=== PATIENT | male | born 1950 | race Caucasian/White ===

== ENCOUNTER → 2017-07-20 | Day surgery (SDC) | payer BC, MEDICARE ==
[2017-07-12 14:07] VITALS: BMI 36.9
[~2017-07-20] MED LIST: ADENOSINE 90 MG in SODIUM CHLORIDE 0.9% 60 ML IVP ONE; ALPRAZolam 0.25 MG TAB PO PRN; ALPRAZolam 0.5 MG TAB PO PRN; ASPIRIN 325 MG TAB PO STA; ATORVASTATIN 80 MG TAB PO STA; BIVALIRUDIN 250 MG in SODIUM CHLORIDE 0.9% 35 ML IV ONE; BIVALIRUDIN BOLUS 250 MG/50 ML IV ONE; IOHEXOL 350 MG/ML 125ML BOTTLE INJ ONE; LIDOCAINE 2% INJ 20 MG/ML SQ ONE; MIDAZOLAM 2 MG/2 ML VIAL IVP ONE; NITROGLYCERIN 1000MCG/10ML SYRINGE INTRACORON ONE; NITROGLYCERIN SL TABS 0.4 MG TAB SUBLINGUAL PRN; RX INFO: IV CONTRAST WAS GIVEN 1 EACH MISC MISCELLANE PRN; SODIUM CHLORIDE 0.9% 1,000 ML IV SCH; SODIUM CHLORIDE 0.9% 1,000 ML in EMPTY BAG 1 BAG IV ONE
[2017-07-20 07:11] VITALS: RESP 18
[2017-07-20 07:32] LABS: Anion Gap 10 mmol/L; Blood Urea Nitrogen 20 mg/dL (9-20); Calcium 9.6 mg/dL (8.4-10.2); Carbon Dioxide 26 mmol/L (22-30); Chloride 106 mmol/L (98-107); Glucose 112 mg/dL (74-99); Potassium 4.3 mmol/L (3.5-5.1); Sodium 142 mmol/L (137-145)
[2017-07-20 07:49] LABS: Basophils # (A) 0.1 k/uL (0-0.2); Basophils % (A) 1 %; Eosinophils # (A) 0.6 k/uL (0-0.7); Eosinophils % (A) 8 %; HCT 41.9 % (39.0-53.0); HGB 13.9 gm/dL (13.0-17.5); Lymphocytes % (A) 27 %; MCH 31.4 pg (25.0-35.0); MCHC 33.1 g/dL (31.0-37.0); Mean Platelet Volume 7.3; Monocytes # (A) 0.6 k/uL (0-1.0); Monocytes % (A) 8 %; Neutrophils # (A) 4.1 k/uL (1.3-7.7); Neutrophils % (A) 54 %; Platelet Count 242 k/uL (150-450); RBC 4.41 m/uL (4.30-5.90); RDW 14.4 % (11.5-15.5); WBC 7.5 k/uL (3.8-10.6)
[2017-07-20 07:58] LABS: Glucose,Whole Blood 110 mg/dL (75-99)
[2017-07-20] MEDS: VERAPAMIL SYRINGE (5 MG/10 ML) INTRAARTER ONE ×2 (08:00→08:33)
--- NOTE | 2017-07-20 09:21 | CC ---
CARDIAC CATHETERIZATION REPORT DATE OF SERVICE: 07/20/2017 PERFORMING PHYSICIAN: Karsten Brian MD, combat control. PROCEDURE PERFORMED: 1. Selective right and left coronary angiogram. 2. Left heart catheterization. 3. Fractional flow reserve of the RCA. INDICATION: This is a pleasant 67-year-old gentleman who underwent recently successful stenting of the LAD in the setting of acute anterior ST-elevation myocardial infarction and was found to have severe disease involving the RCA. He was brought today to undergo stenting of the RCA. APPROACH: Right radial artery. COMPLICATION: None. LEVEL OF SEDATION: Moderate with sedation length of 46 minutes. PROCEDURE DESCRIPTION: After obtaining an informed consent, the patient was brought to cardiac cath lab radiology technician. The right radial artery was cannulated using micropuncture technique, the micropuncture wire passed easily then I placed a 6-English sheath in the right radial artery. After that I gave the patient 2 mg of verapamil IA. Subsequently anticoagulation was initiated using Angiomax. Then I did selective right coronary angiogram using JR4 guiding catheter. After that, we did an FFR of the RCA. Please see a separate paragraph for that. Then I did selective left coronary angiogram using JL3.5 catheter. Then I did left heart catheterization and that was performed using the JR4 catheter, which flipped into the LV then I did pullback. The procedure was completed without any complication. SELECTIVE CORONARY ANGIOGRAM: 1. The RCA is a large caliber vessel and it is a dominant vessel. The proximal RCA is stented with intermediate in-stent restenosis. The FFR came in to be 0.88. The mid RCA appears to be angiographically normal. The RCA distally is angiographically normal and bifurcates into PDA and PLV branches. 2. The left main is angiographically normal. It bifurcates into the left circumflex and left anterior descending artery. 3. The left circumflex is a large caliber vessel. It is a nondominant vessel. The proximal circ is angiographically normal. The mid circ is normal and gives rise into a large OM branch, which bifurcates into 2 small branches. They are angiographically normal. The circ continued after that as a medium caliber vessel in the AV groove. 4. The left anterior descending artery; the proximal LAD is stented and the stent is patent. The mid LAD is normal and the LAD distally is normal as well. The LAD gives rise into multiple small diagonal branches. HEMODYNAMICS: The left ventricular end-diastolic pressure was 8 mmHg. FFR OF THE RCA: Anticoagulation was initiated using Angiomax. Subsequently I did after zeroing the Doppler wire and equalizing between the Doppler wire and guiding catheter which was JR4 guiding catheter, we did an FFR per IV adenosine infusion and the FFR came in to be 0.88. The procedure was completed without any complication. CONCLUSION: 1. Intermediate in-stent restenosis of the proximal to mid right coronary artery with an FFR of 0.88. 2. Patent stent in the proximal LAD. Postprocedure management is maximize medical treatment and follow up with the patient. MMODL / IJN: [id number] /
--- NOTE | 2017-07-20 09:41 | LTR ---
July 20, 2017 Re: Alexsander Zavala Dear Reynaldo: Mr. Alexsander Zavala underwent a heart catheterization that revealed intermediate disease involving the RCA which is not quite severe enough to be stented. The LAD stent was wide open. Maximized medical treatment is recommended at this point of time and I want to thank you for allowing me to participate in his care. Sincerely, MD DAIJA Knowles / ANNIKA: [id number] /
[2017-07-20 14:11] VITALS: BP 151/72; PULSE 62; TEMP 98.2
== END ==
LOC: CATHCVL 06:31
PROVIDERS: ATTEND Internal Medicine Interventional Cardiology
DX: I25.110 Atherosclerotic heart disease of native coronary artery with unstable angina pectoris (principal); T82.855A Stenosis of coronary artery stent, initial encounter; I10 Essential (primary) hypertension; Z87.891 Personal history of nicotine dependence; E78.5 Hyperlipidemia, unspecified; Z95.5 Presence of coronary angioplasty implant and graft; E66.9 Obesity, unspecified; Z68.36 Body mass index [BMI] 36.0-36.9, adult; Z79.02 Long term (current) use of antithrombotics/antiplatelets; Z79.82 Long term (current) use of aspirin; Z79.899 Other long term (current) drug therapy
CPT/HCPCS: 93571; 93458; 80048; 85025; C1887; C1753; C1894; J2001; J2250; J0583; J0153; Q9967

== ENCOUNTER → 2017-10-18 | Outpatient (CLI) | payer MEDICARE, BC ==
--- NOTE | 2017-10-18 13:29 | MR ---
EXAMINATION TYPE: MR lumbar spine wo con DATE OF EXAM: 10/18/2017 1:05 PM COMPARISON: 07/08/2015 HISTORY: Low back pain / Spinal stenosis. Previous surgical intervention. Multiplanar, MultiSpin echo imaging of the lumbar spine was performed. Given history of prior surgica l intervention and lack of contrast examination is limited. L1-L2: Normal disc appearance without desiccation. No herniation, protrusion or disc bulging. No ca nal stenosis is present. Foramina are patent bilaterally. L2-L3: Severe disc desiccation with vacuum disc noted. Mild posterior disc bulge. No evidence for her niation protrusion or central stenosis. Mild bilateral foraminal encroachment. L3-L4: Severe disc desiccation noted. Posterior disc bulge. Changes of decompressive laminectomy. No evidence for central stenosis at this time. No evidence for recurrent disease. L4-L5: Severe disc desiccation noted with vacuum disc. Posterior disc bulge with partial encapsulatin g spur resulting in disc endplate complex. Left lateral recess stenosis. Decompressive laminectomy ch portia. Severe bilateral foraminal encroachment. Facet joint arthropathy. L5-S1: Severe disc desiccation noted with vacuum disc. Mild posterior disc bulge. No evidence for macario tral stenosis or disc herniation. Severe facet joint arthropathy with bilateral foraminal encroachmen t. Lumbar segments are intact. No paraspinal masses are identified. Conus medullaris has a normal appe arance. IMPRESSION: 1. Severe multilevel degenerative disc disease. 2. Multilevel decompressive laminectomy. Lack of contrast limits evaluation. Degenerative disc bulgin g without evidence for central stenosis. Suspect left lateral recess stenosis at L4-5. See above.
== END ==
LOC: RADMRIMAIN 12:13
PROVIDERS: ATTEND Orthopaedic Surgery Orthopaedic Surgery of the Spine
DX: M51.36 Other intervertebral disc degeneration, lumbar region (principal); M51.26 Other intervertebral disc displacement, lumbar region; M48.061 Spinal stenosis, lumbar region without neurogenic claudication; M46.96 Unspecified inflammatory spondylopathy, lumbar region; Z98.1 Arthrodesis status
CPT/HCPCS: 72148

== ENCOUNTER 2017-11-20 19:55 | Emergency (ER) | payer MEDICARE, BC ==
[2017-11-20 20:01] VITALS: BP 165/76; PULSE 63; RESP 16; TEMP 98.4
--- NOTE | 2017-11-20 22:14 | ED ---
General Adult HPI - General Chief complaint: Eye Problems Stated complaint: eye problem Time Seen by Provider: 11/20/17 21:21 Source: patient, RN notes reviewed Mode of arrival: ambulatory Limitations: no limitations - History of Present Illness Initial comments: 67-year-old male presents to the emergency determine for a chief complaint of "growth" on the lateral corner of the left eye. Patient denies any pain in the eye. Patient denies any foreign body sensations. Patient denies any pain with movement of the eye or swelling around the eye. Patient states he only noticed it because he looks to his right and his noticed the growth. Patient is currently retired. Patient has no other complaints at this time including shortness of breath, chest pain, abdominal pain, nausea or vomiting, headache, or visual changes. - Related Data Home Medications Medication Instructions Recorded Confirmed Aspirin 81 mg PO DAILY 06/05/14 11/20/17 Fenofibrate [Lofibra] 160 mg PO DAILY 06/05/14 11/20/17 Hydrochlorothiazide [Hydrodiuril] 12.5 mg PO DAILY 06/05/14 11/20/17 Metoprolol Tartrate [Lopressor] 25 mg PO BID 06/05/14 11/20/17 [employer]-3 Fatty Acids/Fish Oil [Fish 2 cap PO DAILY 12/07/14 11/20/17 Oil 1,000 mg Softgel] Nitroglycerin Sl Tabs [Nitrostat] 0.4 mg SUBLINGUAL Q5M PRN 08/16/15 11/20/17 Losartan Potassium 100 mg PO DAILY 08/26/15 11/20/17 Atorvastatin [Lipitor] 80 mg PO HS 07/12/17 11/20/17 Clopidogrel [Plavix] 75 mg PO DAILY 07/12/17 11/20/17 Cholecalciferol [Vitamin D3] 1,000 unit PO DAILY 11/20/17 11/20/17 Cyanocobalamin (Vitamin B-12) 1,000 mcg PO DAILY 11/20/17 11/20/17 [Vitamin B-12] Gabapentin [Neurontin] 300 mg PO TID 11/20/17 11/20/17 PARoxetine HCL 20 mg PO DAILY 11/20/17 11/20/17 Allergies Allergy/AdvReac Type Severity Reaction Status Date / Time No Known Allergies Allergy Verified 11/20/17 20:45 Review of Systems ROS Statement: Those systems with pertinent positive or pertinent negative responses have been documented in the HPI. ROS Other: All systems not noted in ROS Statement are negative. 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 Past Anesthesia/Blood Transfusion Reactions: No Reported Reaction Date of Last Stent Placement:: 2016 Past Psychological History: Anxiety Smoking Status: Former smoker Past Alcohol Use History: None Reported Past Drug Use History: None Reported - Past Family History Mother Family Medical History: Coronary Artery Disease (CAD) Additional Family Medical History / Comment(s): stents cabg Father Family Medical History: Coronary Artery Disease (CAD), Vascular Disorder Additional Family Medical History / Comment(s): cabg x2 General Exam Limitations: no limitations General appearance: alert, in no apparent distress Eye exam: Present: PERRL, EOMI, other (There is a 1 cm x 1 cm growth on the lateral aspect of the left eye that appears when patient looks to the right.). Absent: scleral icterus, conjunctival injection, nystagmus, periorbital swelling , periorbital tenderness ENT exam: Present: normal exam, normal oropharynx, mucous membranes moist Neck exam: Present: normal inspection, full ROM. Absent: tenderness, meningismus, lymphadenopathy Respiratory exam: Present: normal lung sounds bilaterally. Absent: respiratory distress, wheezes, rales, rhonchi, stridor Cardiovascular Exam: Present: regular rate, normal rhythm, normal heart sounds. Absent: systolic murmur, diastolic murmur, rubs, gallop, clicks Course Vital Signs 11/20/17 19:57 Temperature 98.4 F Pulse Rate 63 Respiratory 16 Rate Blood Pressure 165/76 O2 Sat by Pulse 94 L Oximetry Medical Decision Making - Medical Decision Making 67-year-old male presents to the emergency department for a chief complaint of growth on the lateral aspect of the left eye. Patient just noticed this today because his side. Patient denies any pain in the eye. Patient denies any pain with movement of the eye. Patient denies any visual changes or foreign body sensation. Visual acuity intact. PERRLA and EOMI. Patient was to the right there is a flesh-colored lesion on the lateral side of the left eyelid appears. Patient was not aware of this lesion before today. Patient was educated that he needs to follow-up with blue prints trimmer in one to 2 days. He is to return to the emergency department if he begins to have pain or visual changes. He was prescribed a ketorolac that may help with the inflammation. Disposition Clinical Impression: Pterygium Disposition: HOME SELF-CARE Condition: Good Instructions: Pterygium (ED) Additional Instructions: Please use eyedrops as directed. Please schedule an appointment with the opthomologist this week. Return to the ED if you have any worsening symptoms or visual changes. Is patient prescribed a controlled substance at d/c from ED?: No Referrals: Daya Boothe III, MD [Primary Care Provider] - 1-2 days Jn Chauhan MD [STAFF PHYSICIAN] - 1-2 days Time of Disposition: 22:12
== END 2017-11-20 22:23 | disposition home or self-care (01) ==
LOC: EC 19:55
DX: H11.002 Unspecified pterygium of left eye (principal); E78.5 Hyperlipidemia, unspecified; I10 Essential (primary) hypertension; I25.2 Old myocardial infarction; M19.90 Unspecified osteoarthritis, unspecified site; F41.9 Anxiety disorder, unspecified; Z87.891 Personal history of nicotine dependence; Z98.890 Other specified postprocedural states; Z79.02 Long term (current) use of antithrombotics/antiplatelets; Z79.82 Long term (current) use of aspirin; Z79.899 Other long term (current) drug therapy
CPT/HCPCS: 99283

== ENCOUNTER → 2018-07-29 | Outpatient (CLI) | payer MEDICARE, BC ==
[2018-07-29 12:21] VITALS: BP 137/75; PULSE 86; RESP 18; TEMP 97.8
--- NOTE | 2018-07-30 05:58 | P.PAINCN ---
History of Present Illness - Reason for Consult Consult date: 07/29/18 - History of Present Illness This is the initial consultation visit for this 68 years old male with a chronic history of severe low back pain with radiation to the lower extremity bilaterally, pain started 5-6 years ago he denies any initiating event, pain intensity increased over time and he had lumbar laminectomy and facetectomy surgery done 2 years ago, he continues to have severe low back pain after the surgery, the pain is constant and increases with any activity and admitted to the lower extremity and left side more than the right side, the intensity of the pain interfering with her quality of life, and preventing him from doing activities of daily livings, he denies any fever or night sweats. 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 degenerative disc disease Last Myocardial Infarction Date:: 2016 History of Any Multi-Drug Resistant Organisms: None Reported Past Surgical History: Cholecystectomy, Heart Catheterization With Stent, Hernia Repair Additional Past Surgical History / Comment(s): BILAT CATARACTS REMOVED, south inguinal hernia repair 1995, umbilical hernia repair x2 pain clinic procedures, 08-26- south l3-4,l4-5 lumbar laminectomy and medial facetectomy. Past Anesthesia/Blood Transfusion Reactions: No Reported Reaction Date of Last Stent Placement:: 2016 Past Psychological History: Anxiety Additional Psychological History / Comment(s): pt lives with his , is independant. 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 Smoking Status: Former smoker Past Alcohol Use History: None Reported Additional Past Alcohol Use History / Comment(s): quit smoking 1984, started smoking age 17, smoked 18 yrs Past Drug Use History: None Reported - Past Family History Mother Family Medical History: Coronary Artery Disease (CAD) Additional Family Medical History / Comment(s): stents cabg Father Family Medical History: Coronary Artery Disease (CAD), Vascular Disorder Additional Family Medical History / Comment(s): cabg x2 Medications and Allergies Home Medications Medication Instructions Recorded Confirmed Type Aspirin EC [Ecotrin Low Dose] 81 mg PO DAILY 07/29/18 07/29/18 History Atorvastatin [Lipitor] 80 mg PO HS 07/29/18 07/29/18 History Clopidogrel [Plavix] 75 mg PO DAILY 07/29/18 07/29/18 History Fenofibrate [Lofibra] 160 mg PO DAILY 07/29/18 07/29/18 History Gabapentin [Neurontin] 300 mg PO TID 07/29/18 07/29/18 History Hydrochlorothiazide 12.5 mg PO DAILY 07/29/18 07/29/18 History Losartan Potassium 100 mg PO DAILY 07/29/18 07/29/18 History Metoprolol Tartrate [Lopressor] 25 mg PO BID 07/29/18 07/29/18 History Naproxen Sodium [Aleve] 220 mg PO BID PRN 07/29/18 07/29/18 History [place]-3 Fatty Acids/Fish Oil [Fish 1 each PO DAILY 07/29/18 07/29/18 History Oil 1,000 mg Softgel] PARoxetine [Paxil] 20 mg PO DAILY 07/29/18 07/29/18 History Allergies Allergy/AdvReac Type Severity Reaction Status Date / Time No Known Allergies Allergy Verified 07/29/18 12:08 Physical Exam Vitals: Vital Signs Temp Pulse Resp BP Pulse Ox 07/29/18 12:16 97.8 F 86 18 137/75 95 Intake and Output 07/29/18 07/29/18 07/30/18 14:59 22:59 06:59 Other: Weight 115.666 kg Social history : not smoker , NO ETOH , NO Illegal drugs use Review of Systems : 1- Constitutional : no chills , no fever , no night sweats , 2- Ears : no ear discharge , no change in hearing 3-Nose, Mouth ,Throat ; no bleeding gums, no sore throat , no epistaxis , 4-Cardiovascular : Denies chest pain, , no orthopnea , no palpitation ,(he had a history of coronary artery disease currently on Plavix) 5-Respiratory : Denies cough , no dyspnea , no hemoptysis 6-Gastrointestinal :, no change in bowel habits , no coffee- ground emesis . 7-Genitourinary : No hematuria , no discharge , no incontinence, 8-Musculoskeletal : No gait dysfunction , report low back pain with radiation to the lower extremities , 9- Neurological : no ataxia , no tremor , no sezure , 10-Psychatric , no suicidal ideation no hallucination 11- Endocrine : no cold intolerence , no polyuria , no polydypsia , 12-Hematologic : no easy bleeding , no easy brusing , 13-Allergic / immunology : no angioedema , no wheezing ,no allergic rhinitis 14-Integumentary : no brttle nails , no change hair / nails , no foot/leg ulcers . Physical Examinations : 1-Constitutional : Cooperative , not in acute distress . 2-HEENT : nech ; supple , no Lymphadenopathy , no Thyromegaly , :eyes , no icterus, no photophobia . ENT : , normal oropharynx , no Thrush 3- Respiratory : Chest clear to auscultations Bilaterally , no wheezing 4- Cardiovascular : regular rate and rhythem , S1 , S2 , no S3 , no S4. 5- Gastrointestinal: abdomen soft no tenderness , no organomegally . 6- Genitourinary : Defferred . 7-Integumentary : No cellulitis , no ulcers , normal skin turgor , no cyanotic . 8- neurologic : Cranial nerve II to XII intact , no focal neurological deffecit 9-psychatric : alert , oriented X 3 , appropriate affect , intact judgment and insight . 10-Lymphatic : no Lymphadenopathy. 11- musculoskeltal: normal gait Lumber spine moter stegnth lower extremities ,thigh and legs 5/5 Right side , 5/5 Left side deep tendon reflexes : normal Knee Jerk , normal ankle Jerk positive lumber facet Loading Test Range of motion of the lumbar spine Flexion 30 degrees, extension 10 degrees strait leg raising test , positive at 30 degree on the left side and is positive at 60 on the right side Fabere test positive RT and positive LT . moderate tenderness over the Sacroiliac joint on the R and L sides Results Comments: MRI of the lumbar spine done [facility] 2017 =L2-3 disc desiccation at L3-4 bulging disc with facet arthropathy L4-L5 bulging disc and facet arthropathy, multilevel lumbar laminectomy Assessment and Plan Plan: Assessment and plan= chronic severe low back pain secondary to failed back surgery syndrome and lumbar area, lumbar spondylosis and lumbar facet arthropathy, patient will be good candidate to her, and epidural steroid injections with lysis of epidural adhesions under fluoroscopy guidance. Patient should continue to use his current medication Neurontin 300 mg 3 times a day, he denies any side effect of the medication, he will continue to get prescription from his primary care. Before we can do the procedure, patient had to hold his Plavix for 1 week before the procedure Time with Patient: Greater than 30 PQRS Measure Charge Sheet Measure #130: Documentation of Current Meds in Medical Chart: Patient's medications documented in chart Measure #226: Tobacco Use: Screen & Cessation Intervention: Pt not a tobacco user Measure #111: Pneumonia Vaccination: Pneumococcal vaccine administered or previously received Measure #47: Advance Care Plan: Advance care planning discussed & documented, pt chose/unable to give Measure #412: Opioid Treatment Agreement: No documentation of signed opioid treatment agreement Measure #408: Opioid Therapy Follow-up Evaluation: Patient had NO f/u eval minimum every 3 months during opioid therapy Measure #317: Preventitive Care & Scrn High Bld Press & F/U: Normal blood pressure, f/u not required Measure #128: Body Mass Index (BMI) Screening & Follow-up: BMI documented ABOVE normal parameters - f/u documented Measure #131: Pain Assessment & Follow-up: Pain positive & plan documented, Follow-up scheduled Measure #431: Unhealthy Alcohol Use Preventative Care & Scrn: Patient not identified as an unhealthy alcohol user PQRS Narrative: Smoking Status Former smoker Do You Want the Pneumonia Vaccine Up to Date Vaccine AT THIS TIME? Blood Pressure 137/75 Pain Intensity [Lower Back] 6 Scale Used Numeric (1 - 10) Hx Alcohol Use ([facility]) No Home Medications: Ambulatory Orders Aspirin EC [Ecotrin Low Dose] 81 mg PO DAILY 07/29/18 Atorvastatin [Lipitor] 80 mg PO HS 07/29/18 Clopidogrel [Plavix] 75 mg PO DAILY 07/29/18 Fenofibrate [Lofibra] 160 mg PO DAILY 07/29/18 Gabapentin [Neurontin] 300 mg PO TID 07/29/18 Hydrochlorothiazide 12.5 mg PO DAILY 07/29/18 Losartan Potassium 100 mg PO DAILY 07/29/18 Metoprolol Tartrate [Lopressor] 25 mg PO BID 07/29/18 Naproxen Sodium [Aleve] 220 mg PO BID PRN 07/29/18 [place]-3 Fatty Acids/Fish Oil [Fish Oil 1,000 mg Softgel] 1 each PO DAILY PARoxetine [Paxil] 20 mg PO DAILY 07/29/18
== END ==
LOC: PNWHC3 11:44
PROVIDERS: ATTEND Specialist
DX: G89.29 Other chronic pain (principal); M96.1 Postlaminectomy syndrome, not elsewhere classified; M47.816 Spondylosis without myelopathy or radiculopathy, lumbar region; M46.96 Unspecified inflammatory spondylopathy, lumbar region; E78.5 Hyperlipidemia, unspecified; I10 Essential (primary) hypertension; I25.10 Atherosclerotic heart disease of native coronary artery without angina pectoris; M19.90 Unspecified osteoarthritis, unspecified site; I25.2 Old myocardial infarction; Z79.899 Other long term (current) drug therapy; Z87.891 Personal history of nicotine dependence; Z79.82 Long term (current) use of aspirin; Z79.02 Long term (current) use of antithrombotics/antiplatelets; Z79.1 Long term (current) use of non-steroidal anti-inflammatories (NSAID)
CPT/HCPCS: 99201

== ENCOUNTER 2018-08-06 08:31 | Day surgery (SDC) | payer MEDICARE, BC ==
[~2018-08-06 08:31] MED LIST changes: -ADENOSINE 90 MG in SODIUM CHLORIDE 0.9% 60 ML IVP ONE; -ALPRAZolam 0.25 MG TAB PO PRN; -ALPRAZolam 0.5 MG TAB PO PRN; -ASPIRIN 325 MG TAB PO STA; -ATORVASTATIN 80 MG TAB PO STA; -BIVALIRUDIN 250 MG in SODIUM CHLORIDE 0.9% 35 ML IV ONE; -BIVALIRUDIN BOLUS 250 MG/50 ML IV ONE; -IOHEXOL 350 MG/ML 125ML BOTTLE INJ ONE; -LIDOCAINE 2% INJ 20 MG/ML SQ ONE; -MIDAZOLAM 2 MG/2 ML VIAL IVP ONE; -NITROGLYCERIN 1000MCG/10ML SYRINGE INTRACORON ONE; -NITROGLYCERIN SL TABS 0.4 MG TAB SUBLINGUAL PRN; -RX INFO: IV CONTRAST WAS GIVEN 1 EACH MISC MISCELLANE PRN; -SODIUM CHLORIDE 0.9% 1,000 ML IV SCH; -SODIUM CHLORIDE 0.9% 1,000 ML in EMPTY BAG 1 BAG IV ONE; +SODIUM CHLORIDE 0.9% 500 ML 500 ML IV SCH
[2018-08-06] MEDS ORDERED: LACTATED RINGERS 1,000 ML IV ONE (08:49)
[2018-08-06 08:50] VITALS: RESP 16; TEMP 97
[2018-08-06] MEDS ORDERED: LIDOCAINE 1% 20 ML VIAL (10MG/ML) FOR IV START INTRADERMA ONE (08:50)
--- NOTE | 2018-08-06 09:42 | P.PCN ---
Date of Procedure: 08/06/18 Procedure(s) Performed: PREOP DIAGNOSIS: 1- Lumbar postlaminectomy syndrome. POSTOP DIAGNOSIS:1- Lumbar postlaminectomy syndrome. PROCEDURE: 1-Caudal epidural steroid injection with epidurolysis and epidurogram under fluoroscopic guidance. 2-caudal epidurogram. ANESTHESIA: Local with 1% lidocaine 3 ml ,and moderate sedation, with Versed 2 mg and fentanyl 100 g. EBL: Minimal. PROCEDURE INDICATION: The patient with post-laminectomy syndrome with low back pain and radiculopathy radiating down in both legs, here for a caudal epidural steroid injection with epidurolysis. PROCEDURE DESCRIPTION: The patient was seen and identified in the preoperative area. Risks, benefits, complications, and alternatives were discussed with the patient. The patient agreed to proceed with the procedure and signed the consent. IV was started, and vital signs were stable. Patient was taken to the OR and time out was completed. The patient was placed in the prone position on procedure table and a pillow was placed under the abdomen to reduce lumbar lordosis. The lumbosacral area was prepped and draped in the usual sterile fashion. Vital signs were closely monitored during the procedure. lateral view and the anterior-posterior plates of the sacrum were identified with infiltration of the area overlying the sacral hiatus with 1% lidocaine .A 17 gauge RK epidural needle was used to advance through the sacral hiatus into the caudal epidural space. Omnipaque 180 dye. 2cc was injected and the position of the needle was verified to be in the midline. A Racz catheter was introduced into the epidural space and was advanced towards the L5-S1 interspace under direct fluoroscopic guidance. Multiple passes were made with the catheter for lysis of epidural adhesions. Kenalog 80 mg with 3ml of preservative free Lidocaine 1% and 5 ml of preservative free normal saline was injected slowly. Additional spread was seen to L4 under fluoroscopy. The needle and the catheter were withdrawn intact. EPIDUROGRAM: Omnipaque 180 mg dye 2 ml was injected with spread of the dye into the caudal epidural space and with spread cutoff at L5 prior to epidurolysis. Post epidurolysis dye 2 ml was injected and spread was seen to L3- 4.There was further spread of the solution together with the dye above the L3 COMPLICATIONS: None. DISPOSITION / PLANS: The patient was placed in a supine position and transferred to the recovery area in a stable condition for observation and was discharged from the recovery room after meeting discharge criteria. Home discharge instructions given to the patient by the staff. The patient was reexamined prior to discharge. The patient will schedule a follow up in the clinic in 2-4 weeks.
[2018-08-06] MEDS ORDERED: IV FLUID CONTINUATION 450 ML IV ONE (09:52)
--- NOTE | 2018-08-06 10:02 | FL ---
Fluoroscopy History: Caudal Inj 4sec fluoro time,3 images scanned
[2018-08-06 10:36] VITALS: BP 109/75; PULSE 84
== END 2018-08-06 10:55 | disposition home or self-care (01) ==
LOC: ORPAIN 08:31
PROVIDERS: ATTEND Specialist
DX: G89.29 Other chronic pain (principal); M96.1 Postlaminectomy syndrome, not elsewhere classified; G96.12 Meningeal adhesions (cerebral) (spinal); M47.26 Other spondylosis with radiculopathy, lumbar region; M51.16 Intervertebral disc disorders with radiculopathy, lumbar region; M48.00 Spinal stenosis, site unspecified; I25.10 Atherosclerotic heart disease of native coronary artery without angina pectoris; E78.5 Hyperlipidemia, unspecified; I10 Essential (primary) hypertension; M19.90 Unspecified osteoarthritis, unspecified site; F41.9 Anxiety disorder, unspecified; I25.2 Old myocardial infarction; Z95.5 Presence of coronary angioplasty implant and graft; Z90.49 Acquired absence of other specified parts of digestive tract; Z79.02 Long term (current) use of antithrombotics/antiplatelets; Z79.82 Long term (current) use of aspirin; Z79.899 Other long term (current) drug therapy; Z87.891 Personal history of nicotine dependence
CPT/HCPCS: 62264; J2250; J1030; J3010; Q9966; 62323; 99152

== ENCOUNTER 2018-11-06 09:22 | Day surgery (SDC) | payer MEDICARE, BC ==
[2018-11-04 14:53] VITALS: BMI 38.4
[~2018-11-06 09:22] MED LIST changes: +LACTATED RINGERS 1,000 ML IV SCH; -SODIUM CHLORIDE 0.9% 500 ML 500 ML IV SCH
[2018-11-06] MEDS ORDERED: LIDOCAINE 1% 20 ML VIAL (10MG/ML) FOR IV START INTRADERMA ONE (09:42)
[2018-11-06 09:53] VITALS: RESP 16; TEMP 97.8
--- NOTE | 2018-11-06 10:12 | P.PCN ---
Date of Procedure: 11/06/18 Procedure(s) Performed: PREOP DIAGNOSIS: 1- Lumbar postlaminectomy syndrome. POSTOP DIAGNOSIS:1- Lumbar postlaminectomy syndrome. PROCEDURE: 1-Caudal epidural steroid injection with epidurolysis and epidurogram under fluoroscopic guidance. ( #2nd ) 2-caudal epidurogram. ANESTHESIA: Local with 1% lidocaine 3 ml ,and moderate sedation, with Versed 2 mg and fentanyl 100 g. EBL: Minimal. PROCEDURE INDICATION: The patient with post-laminectomy syndrome with low back pain and radiculopathy radiating down in both legs, here for a caudal epidural steroid injection with epidurolysis. PROCEDURE DESCRIPTION: The patient was seen and identified in the preoperative area. Risks, benefits, complications, and alternatives were discussed with the patient. The patient agreed to proceed with the procedure and signed the consent. IV was started, and vital signs were stable. Patient was taken to the OR and time out was completed. The patient was placed in the prone position on procedure table and a pillow was placed under the abdomen to reduce lumbar lordosis. The lumbosacral area was prepped and draped in the usual sterile fashion. Vital signs were closely monitored during the procedure. lateral view and the anterior-posterior plates of the sacrum were identified with infiltration of the area overlying the sacral hiatus with 1% lidocaine .A 17 gauge RK epidural needle was used to advance through the sacral hiatus into the caudal epidural space. Omnipaque 180 dye. 2cc was injected and the position of the needle was verified to be in the midline. A Racz catheter was introduced into the epidural space and was advanced towards the L5-S1 interspace under direct fluoroscopic guidance. Multiple passes were made with the catheter for lysis of epidural adhesions. Kenalog 80 mg with 3ml of preservative free Lidocaine 1% and 5 ml of preservative free normal saline was injected slowly. Additional spread was seen to L4 under fluoroscopy. The needle and the catheter were withdrawn intact. EPIDUROGRAM: Omnipaque 180 mg dye 2 ml was injected with spread of the dye into the caudal epidural space and with spread cutoff at L5 prior to epidurolysis. Post epidurolysis dye 2 ml was injected and spread was seen to L3-4.There was further spread of the solution together with the dye above the L3 COMPLICATIONS: None. DISPOSITION / PLANS: The patient was placed in a supine position and transferred to the recovery area in a stable condition for observation and was discharged from the recovery room after meeting discharge criteria. Home discharge instructions given to the patient by the staff. The patient was reexamined prior to discharge. The patient will schedule a follow up in the clinic in 2-4 weeks.
[2018-11-06] MEDS ORDERED: IV FLUID CONTINUATION 1,000 ML IV ONE ×2 (10:20)
[2018-11-06 10:38] VITALS: BP 107/58; PULSE 63
--- NOTE | 2018-11-06 12:50 | FL ---
EXAMINATION TYPE: FL guided pain mgmt statistic DATE OF EXAM: 11/06/2018 HISTORY: Pain caudal epidural, 7 sec fluoro, 3 images scanned
== END 2018-11-06 11:00 | disposition home or self-care (01) ==
LOC: ORPAIN 09:22
PROVIDERS: ATTEND Specialist
DX: M96.1 Postlaminectomy syndrome, not elsewhere classified (principal); I25.10 Atherosclerotic heart disease of native coronary artery without angina pectoris; I10 Essential (primary) hypertension; E78.5 Hyperlipidemia, unspecified; E66.9 Obesity, unspecified; Z68.38 Body mass index [BMI] 38.0-38.9, adult; Z79.02 Long term (current) use of antithrombotics/antiplatelets
CPT/HCPCS: 62264; J2250; J1030; J3010; Q9966; 62323; 99152

== ENCOUNTER → 2018-11-27 | Outpatient (CLI) | payer MEDICARE, BC ==
[2018-11-27 12:39] VITALS: BP 133/66; PULSE 94; RESP 20
--- NOTE | 2018-11-27 13:20 | P.PAINPG ---
Subjective Progress Note Date: 11/27/18 This is a follow-up visit for this 68 years old male with a chronic history of severe low back pain with radiation to the lower extremity, diagnosed with postlaminectomy pain syndrome, recently we have done caudal epidural steroid injection with lysis of epidural adhesions 2, patient reported that he had only a few days of pain relief after each injection, he continued to have severe low back pain with radiation mainly to the left lower extremity associated with numbness and tingling sensation, he denies any fever or night sweats he denies any change in the bowel movement or urination, the pain is constant and increases with any activity Objective - Vital Signs Vital signs: Vital Signs Temp Pulse 94 11/27/18 12:33 Resp 20 11/27/18 12:33 BP 133/66 11/27/18 12:33 Pulse Ox Intake & Output 11/26/18 11/27/18 11/27/18 18:59 06:59 18:59 Weight 117.934 kg - Exam Physical Examinations : -Constitutiona : Cooperative , not in acute distress . -HEENT : nech ; supple , no Lymphadenopathy , normal thyroid size . eyes : no ptosis , no icterus, no photophobia . ENT : normal of hearing , normal oropharynx , no Thrush . - Respiratory : Chest clear to auscultations Bilaterally , no wheezing , no Rhonchi . - Cardiovascula : regular rate and rhythem , S1 , S2 , no S3 , no S4. - Gastrointestina : abdomen soft no tenderness , bowel sounds , no organomegally . - Genitourinary : Defferred . - neurologic : Cranial nerve II to XII intact , no focal neurological deffecit . -psychatric : alert , oriented X 3 , appropriate affect , intact judgment and insight . -Lymphatic : no Lymphadenopathy . - musculoskeltal : Lumber spine moter stegnth lower extremities ,thigh and legs 5/5 Right side , 5/5 Left side deep tendon reflexes : normal Knee Jerk , normal ankle Jerk positive lumber facet Loading Test Range of motion of the lumbar spine Flexion 30 degrees, extension 10 degrees strait leg raising test , positive at 30 degree on the left side, negative on the right side Fabere test positive LT , negative on the right side Assessment and Plan Plan: Assessment and plan=1-lumbar radiculopathy. 2-postlaminectomy pain syndrome lumbar area. Patient continued to have severe low back pain with radiation to the left lower extremity after caudal epidural steroid injection with lysis of epidural adhesions, patient will be referred to Dr. Grant , neurosurgery for evaluation Time with Patient: Less than 30 PQRS Measure Charge Sheet Measure #130: Documentation of Current Meds in Medical Chart: Patient's medications documented in chart Measure #226: Tobacco Use: Screen & Cessation Intervention: Pt not a tobacco user Measure #111: Pneumonia Vaccination: Pneumococcal vaccine administered or previously received Measure #47: Advance Care Plan: Advance care planning discussed & documented, pt chose/unable to give Measure #412: Opioid Treatment Agreement: No documentation of signed opioid treatment agreement Measure #408: Opioid Therapy Follow-up Evaluation: Patient had NO f/u eval minimum every 3 months during opioid therapy Measure #317: Preventitive Care & Scrn High Bld Press & F/U: Normal blood pressure, f/u not required Measure #128: Body Mass Index (BMI) Screening & Follow-up: BMI documented ABOVE normal parameters - f/u documented Measure #131: Pain Assessment & Follow-up: Pain positive & plan documented, Follow-up PRN Measure #431: Unhealthy Alcohol Use Preventative Care & Scrn: Patient not identified as an unhealthy alcohol user PQRS Narrative: Smoking Status Former smoker Do You Want the Pneumonia Vaccine Up to Date Vaccine AT THIS TIME? Blood Pressure 133/66 Pain Intensity [Left Hip] 7 Scale Used Numeric (1 - 10) Hx Alcohol Use (MH) No Home Medications: Ambulatory Orders Aspirin EC [Ecotrin Low Dose] 81 mg PO DAILY 07/29/18 Atorvastatin [Lipitor] 80 mg PO HS 07/29/18 Clopidogrel [Plavix] 75 mg PO QAM 07/29/18 Fenofibrate [Lofibra] 160 mg PO QAM 07/29/18 Gabapentin [Neurontin] 300 mg PO TID 07/29/18 Hydrochlorothiazide 12.5 mg PO QAM 07/29/18 Losartan Potassium 100 mg PO QAM 07/29/18 Metoprolol Tartrate [Lopressor] 25 mg PO BID 07/29/18 Naproxen Sodium [Aleve] 220 mg PO BID PRN 07/29/18 [place]-3 Fatty Acids/Fish Oil [Fish Oil 1,000 mg Softgel] 1 each PO DAILY 07/29/18 PARoxetine [Paxil] 20 mg PO QAM 07/29/18 Cholecalciferol [Vitamin D3] 1 tab PO DAILY 08/02/18 Cyanocobalamin (Vitamin B-12) [Vitamin B-12] 1 tab PO DAILY 08/02/18 Nitroglycerin 0.4 mg SL DIRECTED 08/02/18 Controlled Substance Measures - Controlled Substance Measures Is patient prescribed a controlled substance at discharge?: No
== END | disposition home or self-care (01) ==
LOC: PNWHC3 11:42
PROVIDERS: ATTEND Specialist
DX: G89.29 Other chronic pain (principal); M54.16 Radiculopathy, lumbar region; M96.1 Postlaminectomy syndrome, not elsewhere classified; Z87.891 Personal history of nicotine dependence
CPT/HCPCS: 99211

== ENCOUNTER → 2018-12-12 | Outpatient (CLI) | payer MEDICARE, BC ==
--- NOTE | 2018-12-12 19:54 | MR ---
EXAMINATION TYPE: MR lumbar spine wo/w con DATE OF EXAM: 12/12/2018 COMPARISON: Prior lumbar spine 10/18/2017 HISTORY: DD / Low back pain / Hip pain TECHNIQUE: Multiplanar, multisequence images of the lumbar spine were acquired utilizing 12 mL intravenous Gadav ist gadolinium contrast. L1-L2: There is some facet arthropathy change. No significant disc herniation or foraminal encroachme nt, no central stenosis. L2-L3: Facet arthropathy is present encroaching on the lateral recesses, circumferential extension of endplate disc complex encroaches somewhat on the left neural foramen. No significant central stenosi s. Mild anterior mass effect on the thecal sac is noted. Endplate disc complex. L3-L4: Circumferential extension of endplate disc complex causes bilateral foraminal encroachment. Po sterior broad-based disc bulge causes mild anterior mass effect on the thecal sac, no significant macario tral stenosis. There is facet arthropathy with hypertrophy ligamentum flavum, some mild mass effect p resent on the lateral aspect of the thecal sac. There is encroachment on the lateral recesses. L4-L5: Extensive facet arthropathy changes are present with encroachment on the lateral recesses, the re is no significant central stenosis. Circumferential extension of endplate disc complex causes bila teral foraminal encroachment. L5-S1: Significant facet joint arthropathy is noted with encroachment on the lateral recesses, minima l posterior disc bulge contacts anterior thecal sac as on prior, no spinal stenosis. Circumferential extension of endplate disc complex causes bilateral foraminal encroachment. Lumbar segments are intact, suspect a transitional vertebral body, numbering system used as a same as prior exam. No paraspinal masses are identified. Conus medullaris has a normal appearance. Minimal retrolisthesis grade 1 L3-4, L2-3 as on prior. Multilevel spondylosis with endplate discogenic marro w signal change again seen, vacuum phenomenon present at the intervertebral disc spaces of L2-3, L3-4 , L4-5 and L5-S1, there is loss of disc height and signal. IMPRESSION: Extensive facet arthropathy, degenerative disc disease similar to prior exam. Postop changes. Multile britany foraminal encroachment.
== END | disposition home or self-care (01) ==
LOC: RADMRIMAIN 16:34
PROVIDERS: ATTEND Family Medicine
DX: M51.37 Other intervertebral disc degeneration, lumbosacral region (principal); M47.897 Other spondylosis, lumbosacral region; M54.2 Cervicalgia
CPT/HCPCS: 72158; A9585

== ENCOUNTER → 2019-04-10 | Outpatient (CLI) | payer MEDICARE, BC | END | disposition home or self-care (01) | LOC: LABWHC1 14:23 | PROVIDERS: ATTEND Orthopaedic Surgery | DX: Z01.812 Encounter for preprocedural laboratory examination (principal); M16.12 Unilateral primary osteoarthritis, left hip | CPT/HCPCS: 87070 ==

== ENCOUNTER 2019-04-21 10:24 | Inpatient (IN) | payer MEDICARE, BC ==
[2019-04-18 08:58] VITALS: BMI 36.9
--- NOTE | 2019-04-20 17:42 | HP ---
HISTORY AND PHYSICAL REASON FOR ADMISSION: Surgery is scheduled for 04/21/2019. HISTORY OF PRESENT ILLNESS: Berhane Zavala is a 68-year-old patient seen with symptomatic left hip osteoarthritis. We discussed treatment options. He elected to proceed with direct anterior left total hip arthroplasty. Consent regarding the procedure was obtained. Medical clearance was provided by Dr. Boothe. Cardiac clearance was provided by Dr. Brian. PAST MEDICAL HISTORY: Coronary artery disease, hypertension, hyperlipidemia. PAST SURGICAL HISTORY: Cardiac catheterization, cholecystectomy, lumbar spine surgery. DAILY MEDICATIONS: Aspirin, metoprolol, atorvastatin, paroxetine, hydrochlorothiazide, losartan, Nitrostat. ALLERGIES: None reported. SOCIAL HISTORY: Denies current tobacco use. PHYSICAL EXAMINATION: Evaluation of the left hip, he has limited range of motion with severe pain. Positive hip impingement sign. Straight leg raise is negative. Distal neurovascular exam is intact. RADIOGRAPHS: Of his left hip reveal severe osteoarthritic changes. IMPRESSION: 1. Left hip osteoarthritis. 2. Hypertension. 3. Hyperlipidemia. 4. Cardiovascular disease. PLAN: Direct anterior left total hip arthroplasty. Surgery scheduled for 04/21/2019. MMODL / IJN: [id number] /
[~2019-04-21 10:24] MED LIST changes: +ACETAMINOPHEN TAB 500 MG TAB PO ONE; +HYDROmorphone 0.5 MG/0.5 ML SYRINGE IVP PRN; +LIDOCAINE 1% 20 ML VIAL (10MG/ML) FOR IV START INTRADERMA PRN; +MELOXICAM 7.5 MG TAB PO ONE; +ONDANSETRON 4 MG/2 ML VIAL IVP ONE; +ROPIVACAINE 246.25 MG, EPINEPHrine 0.5 MG, KETOROLAC 30 MG, cloNIDine HCL/PF 80 MCG, WA... MISCELLANE ONE; +TRANEXAMIC ACID 1,000 MG in SODIUM CHLORIDE 0.9% 100 ML IVPB ONE
[2019-04-21] MEDS ORDERED: DEXAMETHASONE SOD PHOSPHATE 10 MG/ML 1 ML VIAL IV ONE (12:24)
[2019-04-21] MEDS ORDERED: MIDAZOLAM 2 MG/2 ML VIAL ONE (12:59)
[2019-04-21] MEDS ORDERED: ePHEDrine SULFATE/0.9% NACL/PF 50 MG/5 ML SYRINGE IV ONE (12:59)
[2019-04-21] MEDS ORDERED: TRANEXAMIC ACID 1,000 MG/10 ML VIAL ONE (12:59)
[2019-04-21] MEDS ORDERED: SODIUM CHLORIDE 0.9% 100 ML BAG ONE (12:59)
[2019-04-21] MEDS ORDERED: fentaNYL (PF) 50 MCG/ML 2 ML AMP ONE (12:59)
[2019-04-21] MEDS ORDERED: ceFAZolin 3,000 MG in SODIUM CHLORIDE 0.9% IRRIGATIO 3,000 ML IRRIGATION ONE (13:31)
[2019-04-21] MEDS ORDERED: LACTATED RINGERS 1,000 ML IV ONE (14:32)
[2019-04-21] MEDS ORDERED: HYDROcodone/APAP 5-325MG 1 EACH TAB PO PRN (15:05)
[2019-04-21] MEDS ORDERED: ONDANSETRON 4 MG/2 ML VIAL IVP PRN (15:05)
[2019-04-21] MEDS ORDERED: NALOXONE 0.4 MG/ML 1 ML VIAL IV PRN (15:05)
[2019-04-21] MEDS ORDERED: HYDROmorphone 0.5 MG/0.5 ML SYRINGE IVP PRN ×2 (15:05)
[2019-04-21] MEDS ORDERED: HYDROmorphone 1 MG/ML 1 ML SYRINGE IVP PRN (15:05)
--- NOTE | 2019-04-21 15:05 | P.OP ---
Date of Procedure: 04/21/19 Preoperative Diagnosis: Left hip osteoarthritis Postoperative Diagnosis: Left hip osteoarthritis Procedure(s) Performed: Direct anterior left total hip arthroplasty Implants: 1. Depuy Corail KLA size 10 high offset collared press-fit femoral stem 2. Depuy pinnacle 56 mm multi hole press-fit acetabular shell 3. Depuy pinnacle neutral polyethylene acetabular liner +4 36 mm ID 56 mm OD 4. Biolox delta ceramic femoral head +1.5 36 mm Anesthesia: local, spinal Surgeon: Rickey Ospina Gas Welder #1: Dereje Armas Estimated Blood Loss (ml): 125 Pathology: other (Femoral head) Condition: stable Disposition: PACU Indications for Procedure: 68-year-old patient seen with symptomatic left hip osteoarthritis. After treatment options were discussed, he elected to proceed with total hip arthroplasty. Operative Findings: see description of procedure Description of Procedure: The patient was taken to the operative suite. Patient underwent a spinal anesthetic by the department of anesthesia. Patient was then transferred to the [place] table. Patient was given preoperative IV antibiotics and TXA. Both lower extremities were placed in standard leg spars. The hip was then prepped and draped in the normal sterile orthopedic fashion. A standard anterior incision was made beginning 3 cm lateral and 1 cm distal to the ASIS extending 10 cm. Dissection was then carried down through the subcutaneous soft tissues down to the fascia overlying the tensor fascia sean. An incision was now made through the fascia. Careful dissection was taken down exposing the tensor fascia sean muscle. A Cobra retractor was now placed along the medial femoral neck and a second one along the lateral femoral neck. The venous circumflex vessels were now identified, cauterized and clipped. We identified the anterior hip capsule. An incision was made through the hip capsule along the lateral border. I performed a partial anterior capsulectomy. Retractors were now placed around the femoral neck itself. A femoral neck cut was now made with a sagittal saw. It was completed with an osteotome at the lateral neck area. The femoral head was now removed without difficulty. The extremity was now rotated to 45 of external rotation. It was locked in position. Residual labrum was now debrided out. Serial reaming was performed of the acetabulum while Joni hanna holding an anterior retractor for exposure. Once we reached the appropriate size and a trial was position and fit nicely. The appropriate size was now chosen opened and made available. It was introduced into the acetabulum without difficulty. The C-arm/fluoroscopy was now brought into the operative field. We made sure we had a true AP pelvic view. We now under direct C-arm/fluoroscopy introduced into the acetabular component with appropriate version and inclination. I held the cup in appropriate position well Joni CURRAN used a mallet to seat the acetabular component. I noted the component to be well- seated but unstable. At this point 3 appropriate length 6.5 mm cancellous screws were utilized with good purchase and fixation noted. The C-arm was pulled back. An appropriate liner was introduced and clicked into position. It was felt to be stable. At this point retractors were removed. The extremity was now placed into 120 external rotation with no traction. The leg was now dropped to the ground and adducted. Appropriate retractors were now positioned along the proximal femur. We also placed our femoral look into position. Additional capsular releasing was performed to gain access to the proximal femur. We now used a box osteotome. A canal finder was now utilized. The canal was very tight and the cancellus bone was quite dense. I now passed a ball-tipped guidewire and appropriate reaming was performed. Serial broaching was now performed with the assistance of Joni CURRAN tapping the broaches down with a mallet while held the broach in appropriate rotation and position. This was done until we reached the appropriate size with good overall rotational stability. Appropriate calcar planing was performed. A trial head/neck was placed into position. The hip was now reduced. The C- arm/fluoroscopy was brought back into the operative field. An AP pelvis was obtained to ascertain the positioning of the lesser trochanters 4 determination of leg length. It appeared adequate. The C-arm/fluoroscopy was pulled back. Retractors were repositioned and the hip was dislocated. The leg was again taken down to the ground and adducted. Appropriate retractors were repositioned as well as the femoral hook. All trial components were removed. The femoral implant was opened along with the femoral head. The femoral implant was introduced on the appropriate handle into our pre-broached area. I held the component position well Joni CURRAN used a mallet to seat the femoral component. The femoral component was now noted to be well seated and stable.. The femoral head was introduced with good positioning and fixation noted. Retractors were now removed. The hip was now reduced. There appeared be good positioning of the hip confirmed on intraoperative fluoroscopy. Spot films were obtained to document this. A second gram of TXA was given. The deep and superficial soft tissues were infiltrated with local analgesic. Bipolar cautery had been utilized intermittently through the procedure for hemostasis. The wound was irrigated copiously with pulse lavage mechanical irrigation. The fascia was repaired with Vicryl suture. The subcutaneous soft tissues were repaired in layers with Vicryl suture. The skin was approximated with pernio/Dermabond. Sterile dressings were applied. Patient was then awakened, transferred to a bed and taken to recovery in stable condition. Joni CURRAN assisted with the complex procedure.
--- NOTE | 2019-04-21 15:11 | FL ---
Fluoroscopy INDICATION: Pain FINDINGS: Fluoroscopy time: 26 seconds. Images obtained: One. IMPRESSIONS: 1. Documentation of fluoroscopy.
[2019-04-21] MEDS: ePHEDrine 50 MG/ML 1 ML AMP IVP ONE ×2 (15:21→15:29)
[2019-04-21] MEDS: LACTATED RINGERS 1,000 ML IV SCH (20:13)
[2019-04-21] MEDS: GABAPENTIN 300 MG CAP PO SCH (20:14)
[2019-04-21] MEDS: LORATADINE-PSEUDOEPH 5-120 MG 1 EACH TAB.ER.12H PO SCH (20:14)
[2019-04-21] MEDS: METOPROLOL TARTRATE 25 MG TAB PO SCH (20:15)
[2019-04-21] MEDS ORDERED: ATORVASTATIN 80 MG TAB PO SCH (21:00)
[2019-04-21] MEDS ORDERED: SENNOSIDES-DOCUSATE SODIUM 1 EACH TAB PO SCH (21:00)
[2019-04-22] MEDS: HYDROcodone/APAP 5-325MG 1 EACH TAB PO PRN ×2 (00:12→12:47)
[2019-04-22] MEDS: LACTATED RINGERS 1,000 ML IV SCH (05:26)
[2019-04-22 08:07] VITALS: BP 135/74; PULSE 83; RESP 16; TEMP 97.9
[2019-04-22] MEDS: METOPROLOL TARTRATE 25 MG TAB PO SCH (08:09)
[2019-04-22] MEDS: GABAPENTIN 300 MG CAP PO SCH (08:09)
[2019-04-22] MEDS: LORATADINE-PSEUDOEPH 5-120 MG 1 EACH TAB.ER.12H PO SCH (08:10)
[2019-04-22] MEDS ORDERED: NON FORMULARY DRUG (Omega-3 Fatty Acids/Fish Oil [Fish Oil 1,000 Mg Softgel] 1 EACH) PO SCH (09:00)
[2019-04-22] MEDS ORDERED: FAMOTIDINE 20 MG TAB PO SCH (09:00)
[2019-04-22] MEDS ORDERED: PARoxetine 20 MG TAB PO SCH (09:00)
[2019-04-22] MEDS ORDERED: FENOFIBRATE 160 MG TAB PO SCH (09:00)
[2019-04-22] MEDS ORDERED: CHOLECALCIFEROL 1,000 UNIT TAB PO SCH (09:00)
[2019-04-22] MEDS ORDERED: HYDROCHLOROTHIAZIDE 12.5 MG CAP PO SCH (09:00)
[2019-04-22] MEDS ORDERED: CYANOCOBALAMIN 500 MCG TAB PO SCH (09:00)
[2019-04-22] MEDS ORDERED: LOSARTAN 50 MG TAB PO SCH (09:00)
[2019-04-22] MEDS ORDERED: CLOPIDOGREL 75 MG TAB PO SCH (09:00)
[2019-04-22] MEDS ORDERED: MELOXICAM 7.5 MG TAB PO SCH (09:00)
[2019-04-22 10:23] LABS: Basophils % (A) 0 %; Eosinophils % (A) 0 %; HCT 33.8 % (39.0-53.0); HGB 11.6 gm/dL (13.0-17.5); Lymphocytes # (A) 0.9 k/uL (1.0-4.8); Lymphocytes % (A) 7 %; MCH 32.4 pg (25.0-35.0); MCHC 34.3 g/dL (31.0-37.0); MCV 94.5 fL (80.0-100.0); Mean Platelet Volume 6.1; Monocytes # (A) 0.7 k/uL (0-1.0); Monocytes % (A) 5 %; Neutrophils # (A) 12.3 k/uL (1.3-7.7); Neutrophils % (A) 87 %; Platelet Count 268 k/uL (150-450); RBC 3.58 m/uL (4.30-5.90); RDW 13.4 % (11.5-15.5); WBC 14.1 k/uL (3.8-10.6)
--- NOTE | 2019-04-22 11:20 | P.PN ---
Subjective Progress Note Date: 04/22/19 Principal diagnosis: Status post right anterior left total hip arthroplasty Patient evaluated bedside, he has multiple family members present. His doing very well at this time, his pain is well-controlled. He denies any chest pain or shortness of breath. Objective - Vital Signs Vital signs: Vital Signs Temp 97.9 F 04/22/19 07:12 Pulse 83 04/22/19 08:00 Resp 16 04/22/19 08:00 BP 135/74 04/22/19 07:12 Pulse Ox 93 L 04/22/19 07:12 Intake & Output 04/21/19 04/22/19 04/22/19 18:59 06:59 18:59 Intake Total 2173 1010 180 Output Total 125 Balance 8 1010 180 Weight 117.027 kg Intake: IV 1950 Intake, IV Titration 960 Amount Lactated Ringers 1,000 ml 960 @ 80 mls/hr IV .[id number] [facility] Rx#:[id number] Oral 222 50 180 Output: Estimated Blood Loss 125 Other: Voiding Method Toilet Toilet # Voids 1 - Exam Left lower extremity: Incision is clean, dry, and intact. The exofin fusion tape is in good condition. There is minimal soft tissue swelling and ecchymosis surrounding the medial and lateral aspects of the incision. Calf is soft, no tenderness with palpation. Plantar flexion, dorsiflexion, EHL, FHL are intact. Sensory exam to light touch throughout the extremity is intact, dorsal pedis pulses 2+.] - Labs CBC & Chem 7: 04/22/19 08:54 Labs: Abnormal Lab Results - Last 24 Hours (Table) 04/22/19 Range/Units 08:54 WBC 14.1 H (3.8-10.6) k/uL RBC 3.58 L (4.30-5.90) m/uL Hgb 11.6 L (13.0-17.5) gm/dL Hct 33.8 L (39.0-53.0) % Neutrophils # 12.3 H (1.3-7.7) k/uL Lymphocytes # 0.9 L (1.0-4.8) k/uL Assessment and Plan Plan: Assessment: Postop day #1 status post direct anterior left total hip arthroplasty Plan: Pain control, plan for discharge on oral medication GI and DVT prophylaxis, will resume anticoagulant after discharge Home physical therapy and nursing Medical recommendations Wound care discussed Discharged home today Time with Patient: Less than 30
--- NOTE | 2019-04-22 11:22 | P.DS ---
Providers Date of admission: 04/21/19 11:13 Expected date of discharge: 04/22/19 Attending physician: Rickey Ospina Primary care physician: Daya Boothe Hospital Course: Date of admission: 04/21/2019 Date of discharge: 04/22/2019 Admission diagnosis: Status post direct anterior left total hip arthroplasty Discharge diagnosis: Same Attending physician: Dr. Ospina Surgical procedures: Direct anterior left total hip arthroplasty Brief history: Patient is a 68-year-old male with a history of progressive primary left hip osteoarthritis. At this point patient has failed conservative treatment measures and has opted to proceed with a elective direct anterior left total hip arthroplasty. Hospital course: Details of patient's surgery can be found in operative report. Patient tolerated the procedure well and was subsequently transported to orthopedic floor. Patient's orthopeidc and medical care was provided daily. Patient had daily laboratory tests performed for evaluation of overall blood counts. Patient had daily physical therapy to include strengthening range of motion as well as education with walker ambulation. Patient was treated with aspirin and Plavix for their postoperative DVT prophylaxis during their inpatient stay. Patient was noted to have a relatively uneventful postoperative course. Patient reported satisfactory pain control with oral pain medications by postoperative day 0. Patient showed satisfactory progress with physical therapy. Patient moved steadily through the program and had no difficulty meeting the goals by postoperative day 1. Given patient's otherwise satisfactory course and having met physical therapy goals, plan is to discharge patient home on postoperative day 1. Discharge condition/disposition: Patient will be discharged home in stable condition. Discharge medications: Instructions are given on resumption of patient's normal daily medications per primary care recommendation, in addition patient will be prescribed [place] 5 mg/325 mg, Colace 100 mg. Discharge instructions: 1. Wound care and infection precautions, keep incision dry and covered while showering, no lotions, creams, moisturizers. No soaking, tubs, pools, hottubs. Do not scrub over the incision. 2. Weight-bear as tolerated with walker / cane until follow-up. 3. Ice and elevate when necessary. Do not exceed 20 minutes per hour with ice pack. 4. Utilize compression sleeve until seen at first follow up appointment. 5. Visiting nursing care. 6. Home physical therapy. 7. Pain meds and anticoagulants per prescription. 8. Pain medication has potential to cause constipation. Increase oral fluid and fiber intake. Contact primary care provider if you have not had a bowel movement within 48 hours after discharge 9. No anti-inflammatory medication until discussed at first post operative visit, this including Motrin, Aleve, Mobic, Diclofenac. 10. Follow up in office at 2 weeks postop with Joni Armas PA-C 11. Follow up with your primary care doctor 7-10 days after discharge. 12. Contact [facility] with any questions, . Procedures: Direct anterior left total hip arthroplasty Patient Condition at Discharge: Good Plan - Discharge Summary Discharge Rx Participant: Yes New Discharge Prescriptions: New Docusate [Colace] 100 mg PO DAILY #30 capsule Hydrocodone/Acetaminophen [[place] 5-325] 1 each PO Q6HR PRN #28 tab PRN Reason: Pain No Action Gabapentin [Neurontin] 300 mg PO TID Clopidogrel [Plavix] 75 mg PO QAM Atorvastatin [Lipitor] 80 mg PO HS Hydrochlorothiazide 12.5 mg PO QAM Fenofibrate [Lofibra] 160 mg PO QAM PARoxetine [Paxil] 20 mg PO QAM Metoprolol Tartrate [Lopressor] 25 mg PO BID Losartan Potassium 100 mg PO QAM Aspirin EC [Ecotrin Low Dose] 81 mg PO DAILY [place]-3 Fatty Acids/Fish Oil [Fish Oil 1,000 mg Softgel] 1 each PO DAILY Nitroglycerin 0.4 mg SL DIRECTED Cyanocobalamin (Vitamin B-12) [Vitamin B-12] 1 tab PO DAILY Cholecalciferol [Vitamin D3] 1 tab PO DAILY Loratadine-Pseudoeph 5-120 mg [Claritin-D 12 Hour] 1 tab PO Q12HR Discharge Medication List Aspirin EC [Ecotrin Low Dose] 81 mg PO DAILY 07/29/18 [History] Atorvastatin [Lipitor] 80 mg PO HS 07/29/18 [History] Clopidogrel [Plavix] 75 mg PO QAM 07/29/18 [History] Fenofibrate [Lofibra] 160 mg PO QAM 07/29/18 [History] Gabapentin [Neurontin] 300 mg PO TID 07/29/18 [History] Hydrochlorothiazide 12.5 mg PO QAM 07/29/18 [History] Losartan Potassium 100 mg PO QAM 07/29/18 [History] Metoprolol Tartrate [Lopressor] 25 mg PO BID 07/29/18 [History] [place]-3 Fatty Acids/Fish Oil [Fish Oil 1,000 mg Softgel] 1 each PO DAILY 07/29/18 [History] PARoxetine [Paxil] 20 mg PO QAM 07/29/18 [History] Cholecalciferol [Vitamin D3] 1 tab PO DAILY 08/02/18 [History] Cyanocobalamin (Vitamin B-12) [Vitamin B-12] 1 tab PO DAILY 08/02/18 [History] Nitroglycerin 0.4 mg SL DIRECTED 08/02/18 [History] Loratadine-Pseudoeph 5-120 mg [Claritin-D 12 Hour] 1 tab PO Q12HR 04/18/19 [History] Docusate [Colace] 100 mg PO DAILY #30 capsule 04/22/19 [Rx] Hydrocodone/Acetaminophen [[place] 5-325] 1 each PO Q6HR PRN #28 tab 04/22/19 [Rx] Follow up Appointment(s)/Referral(s): Daya Boothe III, MD [Primary Care Provider] - 1 Week Dereje Armas PAC [PHYSICIAN TORCH SOLDERER] - 05/07/19 1:50 pm Activity/Diet/Wound Care/Special Instructions: [facility]: #[phone] Orthopedic Discharge Instructions: 1. Wound care and infection precautions, keep incision dry and covered while showering, no lotions, creams, moisturizers. No soaking, pools, hot tubs. Do not scrub over incision. 2. Weight-bear as tolerated with walker / cane until follow-up. 3. Ice and elevate when necessary. Do not exceed 20 minutes per hour with ice pack. 4. Utilize compression sleeve until seen at first follow up appointment. 5. Pain meds and anticoagulants per prescription. 6. Pain medication has potential to cause constipation. Increase oral fluid and fiber intake. Contact primary care provider if you have not had a bowel movement within 48 hours after discharge. 7. No anti-inflammatory medication until discussed at first post operative visit, this including Motrin, Aleve, Mobic, Diclofenac. 8. Follow up in office at 2 weeks postop with Joni Armas PA-C 9. Follow up with your primary care doctor 7-10 days after discharge. 10. Contact [facility] with any questions, . Discharge Disposition: HOME WITH HOME HEALTH SERVICES
== END 2019-04-22 13:21 | disposition home health service (06) | DRG 470 ==
LOC: 2ORMAIN 11:13 → 4SSUR 16:02
PROVIDERS: ADMIT Orthopaedic Surgery; ATTEND Orthopaedic Surgery
PROC: 0SRB04A Replacement of Left Hip Joint with Ceramic on Polyethylene Synthetic Substitute, Uncemented, Open Approach (ICD-10-PCS; principal; 2019-04-21 12:30)
DX: M16.12 Unilateral primary osteoarthritis, left hip (principal); I25.10 Atherosclerotic heart disease of native coronary artery without angina pectoris; I10 Essential (primary) hypertension; N40.0 Benign prostatic hyperplasia without lower urinary tract symptoms; E78.2 Mixed hyperlipidemia; E78.00 Pure hypercholesterolemia, unspecified; F41.1 Generalized anxiety disorder; M51.36 Other intervertebral disc degeneration, lumbar region; E66.01 Morbid (severe) obesity due to excess calories; Z90.49 Acquired absence of other specified parts of digestive tract; Z98.890 Other specified postprocedural states; Z79.02 Long term (current) use of antithrombotics/antiplatelets; Z79.82 Long term (current) use of aspirin; Z79.899 Other long term (current) drug therapy; I25.2 Old myocardial infarction; Z95.5 Presence of coronary angioplasty implant and graft; Z80.0 Family history of malignant neoplasm of digestive organs; Z80.42 Family history of malignant neoplasm of prostate; Z68.38 Body mass index [BMI] 38.0-38.9, adult; Z87.19 Personal history of other diseases of the digestive system; Z98.42 Cataract extraction status, left eye; Z98.41 Cataract extraction status, right eye; Z87.891 Personal history of nicotine dependence; Z82.49 Family history of ischemic heart disease and other diseases of the circulatory system
CPT/HCPCS: 36415; 73501; 85025; 86850; 86900; 86901; 88300

== ENCOUNTER 2019-05-08 14:43 | Day surgery (SDC) | payer MEDICARE, BC ==
[2019-05-07 13:15] VITALS: BMI 37.6
--- NOTE | 2019-05-07 15:10 | HP ---
HISTORY AND PHYSICAL REASON FOR ADMISSION: Date of surgery is 05/08/2019. HISTORY OF PRESENT ILLNESS: Alexsander Zavala is a 69-year-old patient who had undergone left total hip arthroplasty on 04/21/2019. He was seen postoperatively and noted to have some dehiscence proximal to the incision. I recommended revising this. I discussed the procedure, risks, complications, benefits, recovery. He was agreeable. Consent was obtained. PAST MEDICAL HISTORY: Hyperlipidemia, hypertension, cardiovascular disease. PAST SURGICAL HISTORY: Cardiac catheterization, cholecystectomy, colonoscopy, lumbar spine surgery, total hip arthroplasty. DAILY MEDICATIONS: Aspirin, metoprolol, atorvastatin, gabapentin, hydrochlorothiazide, losartan, Nitrostat. SOCIAL HISTORY: He denies tobacco use. PHYSICAL EXAMINATION: There is some dehiscence along the proximal incision site measuring approximately 2 cm. There is no redness. There is no drainage. There is painless rotation of the hip. His distal neurovascular examination is intact. IMPRESSION: 1. Left hip incisional dehiscence. 2. History of left total hip arthroplasty via direct anterior approach. 3. Hypertension. 4. Hyperlipidemia. 5. Cardiovascular disease. PLAN: Left hip incision and debridement with secondary repair. MMODL / IJN: [id number] /
[~2019-05-08 14:43] MED LIST changes: -ACETAMINOPHEN TAB 500 MG TAB PO ONE; -LIDOCAINE 1% 20 ML VIAL (10MG/ML) FOR IV START INTRADERMA PRN; -MELOXICAM 7.5 MG TAB PO ONE; -ONDANSETRON 4 MG/2 ML VIAL IVP ONE; +ONDANSETRON 4 MG/2 ML VIAL IVP PRN; -ROPIVACAINE 246.25 MG, EPINEPHrine 0.5 MG, KETOROLAC 30 MG, cloNIDine HCL/PF 80 MCG, WA... MISCELLANE ONE; -TRANEXAMIC ACID 1,000 MG in SODIUM CHLORIDE 0.9% 100 ML IVPB ONE
[2019-05-08] MEDS ORDERED: LIDOCAINE 1% 20 ML VIAL (10MG/ML) FOR IV START INTRADERMA ONE (16:08)
[2019-05-08] MEDS ORDERED: DEXAMETHASONE SOD PHOSPHATE 10 MG/ML 1 ML VIAL IV ONE (16:08)
[2019-05-08] MEDS ORDERED: SUCCINYLCHOLINE CHLORIDE 100 MG/5 ML SYR IV ONE (17:23)
[2019-05-08] MEDS ORDERED: PROPOFOL 10 MG/ML 20 ML VIAL IV ONE (17:23)
[2019-05-08] MEDS ORDERED: fentaNYL (PF) 50 MCG/ML 2 ML AMP ONE (17:23)
[2019-05-08] MEDS ORDERED: ePHEDrine SULFATE/0.9% NACL/PF 50 MG/5 ML SYRINGE IV ONE (17:23)
[2019-05-08] MEDS ORDERED: MIDAZOLAM 2 MG/2 ML VIAL ONE (17:23)
[2019-05-08] MEDS ORDERED: LIDOCAINE 1% INJ 10MG/ML (20 ML MDV) ONE (17:23)
[2019-05-08] MEDS ORDERED: BUPIVACAINE (PF) 0.5% 30 ML VIAL SQ ONE (17:48)
--- NOTE | 2019-05-08 18:14 | P.OP ---
Date of Procedure: 05/08/19 Preoperative Diagnosis: Left proximal hip incisional dehiscence Postoperative Diagnosis: Same Procedure(s) Performed: Irrigation debridement left proximal hip incision with secondary repair Anesthesia: JEFFRY, local Surgeon: Rickey Ospina Mission Planner #1: Dereje Armas Estimated Blood Loss (ml): 4 Pathology: none sent Condition: stable Disposition: PACU Indications for Procedure: 69-year-old patient was seen with a incisional dehiscence involving the left proximal hip anterior incision. I discussed irrigation debridement and secondary repair. He was agreeable and consent was obtained. Operative Findings: See description of procedure Description of Procedure: The patient was taken to the operative suite. The patient underwent a general anesthetic by the department of anesthesia. The left hip area was prepped and draped in the normal sterile orthopedic fashion. He did received preoperative IV antibiotics. Utilizing a #10 blade I debrided an area of some necrotic appearing tissue proximally measuring approximately 2 cmthis was a length of the dehiscence. The depth was only 5 mm. It did not penetrate the deep soft tissues. There was good bleeding noted at the debridement site. I irrigated the wound out with saline solution. I repaired the incision with 3-0 nylon suture. A sterile dressing was applied. The patient was awakened and transferred recovery stable condition.
[2019-05-08 18:25] VITALS: TEMP 96.9
[2019-05-08] MEDS ORDERED: LACTATED RINGERS 1,000 ML IV ONE ×2 (18:30)
[2019-05-08 20:08] VITALS: BP 116/65; PULSE 66; RESP 16
== END 2019-05-08 20:10 | disposition home or self-care (01) ==
LOC: OR 14:43
PROVIDERS: ATTEND Orthopaedic Surgery
DX: T81.31XA Disruption of external operation (surgical) wound, not elsewhere classified, initial encounter (principal); E78.5 Hyperlipidemia, unspecified; I10 Essential (primary) hypertension; I25.10 Atherosclerotic heart disease of native coronary artery without angina pectoris; Z90.49 Acquired absence of other specified parts of digestive tract; Z96.642 Presence of left artificial hip joint; Z79.82 Long term (current) use of aspirin; Z79.899 Other long term (current) drug therapy
CPT/HCPCS: 13160; J2250; J1100; J0690; J2405; J2001; J3010; J0330; J2704

== ENCOUNTER 2020-07-17 11:37 | Inpatient (IN) | payer BC, MEDICARE ==
[2020-07-17] MEDS ORDERED: DEXAMETHASONE SOD PHOSPHATE 4 MG/ML 1 ML VIAL IV STA (11:57)
[2020-07-17] MEDS ORDERED: SODIUM CHLORIDE 0.9% 500 ML 500 ML IV ONE (12:00)
[2020-07-17] MEDS ORDERED: ACETAMINOPHEN TAB 325 MG TAB PO STA (12:00)
[2020-07-17 12:31] LABS: Basophils # (A) 0.1 k/uL (0-0.2); Basophils % (A) 1 %; Eosinophils # (A) 0.5 k/uL (0-0.7); Eosinophils % (A) 5 %; HCT 38.8 % (39.0-53.0); HGB 13.8 gm/dL (13.0-17.5); Lymphocytes % (A) 10 %; MCH 32.1 pg (25.0-35.0); MCHC 35.7 g/dL (31.0-37.0); MCV 89.8 fL (80.0-100.0); Mean Platelet Volume 6.7; Monocytes # (A) 0.7 k/uL (0-1.0); Monocytes % (A) 7 %; Neutrophils # (A) 7.6 k/uL (1.3-7.7); Neutrophils % (A) 75 %; Platelet Count 297 k/uL (150-450); RBC 4.32 m/uL (4.30-5.90); RDW 12.8 % (11.5-15.5); WBC 10.1 k/uL (3.8-10.6)
[2020-07-17 12:44] LABS: Albumin 3.7 g/dL (3.5-5.0); Magnesium 1.7 mg/dL (1.6-2.3); Potassium 3.8 mmol/L (3.5-5.1); Total Protein 6.8 g/dL (6.3-8.2)
--- NOTE | 2020-07-17 12:44 | XR ---
EXAMINATION TYPE: XR chest 1V portable DATE OF EXAM: 07/17/2020 COMPARISON: Chest x-ray 11/17/2014 HISTORY: Suspected Covid pneumonia, shortness of breath and cough TECHNIQUE: Single frontal view of the chest is obtained. FINDINGS: There is peripheral patchy density in the right midlung and right upper lobe. Cardiac medi astinal silhouette is within normal limits. No pneumothorax or pleural effusion. Right hemidiaphragm is again elevated. There are overlying leads. IMPRESSION: Correlate for pneumonia. Follow-up PA and lateral chest x-ray when stable.
[2020-07-17 12:45] LABS: D-Dimer 0.56 mg/L FEU (<0.60); Partial Thromboplastin Time 23.1 sec (22.0-30.0); Prothrombin Time 10.5 sec (9.0-12.0)
[2020-07-17] MEDS ORDERED: AZITHROMYCIN 500 MG in SODIUM CHLORIDE 0.9% 250 ML IVPB STA (12:51)
--- NOTE | 2020-07-17 12:57 | ED ---
SOB HPI - General Chief Complaint: Shortness of Breath Stated Complaint: +Covid, SOB Time Seen by Provider: 07/17/20 11:49 Source: patient Mode of arrival: wheelchair Limitations: no limitations - History of Present Illness Initial Comments: 70yo male presenting for cc of increasing dyspnea. Patient states he tested positive for coma 19 on the fourth. He states he's had worsening shortness of breath as well as cough. Patient states he cannot catch his breath at times. Patient denies any chest pain pressure he states when he is coughing at times he has pains but nothing consistent. Patient denies any leg swelling, hemoptysis, nausea, vomiting, abdominal pain. pt denies headache or neck stiffness. pt endorses body aches/chills. pt denies additional complaints. - Related Data Home Medications Medication Instructions Recorded Confirmed Aspirin EC [Ecotrin Low Dose] 81 mg PO DAILY 07/29/18 05/07/19 Atorvastatin [Lipitor] 80 mg PO HS 07/29/18 05/08/19 Clopidogrel [Plavix] 75 mg PO QAM 07/29/18 05/07/19 Fenofibrate [Lofibra] 160 mg PO QAM 07/29/18 05/08/19 Gabapentin [Neurontin] 300 mg PO TID 07/29/18 05/08/19 Hydrochlorothiazide 12.5 mg PO QAM 07/29/18 05/08/19 [hydroCHLOROthiazide] Losartan Potassium 100 mg PO QAM 07/29/18 05/07/19 Metoprolol Tartrate [Lopressor] 25 mg PO BID 07/29/18 05/07/19 [place]-3 Fatty Acids/Fish Oil [Fish 1 each PO DAILY 07/29/18 05/07/19 Oil 1,000 mg Softgel] PARoxetine [Paxil] 20 mg PO QAM 07/29/18 05/07/19 Cholecalciferol [Vitamin D3 (25 1 tab PO DAILY 08/02/18 05/08/19 Mcg = 1000 Iu)] Cyanocobalamin (Vitamin B-12) 1 tab PO DAILY 08/02/18 05/08/19 [Vitamin B-12] Nitroglycerin 0.4 mg SL DIRECTED 08/02/18 05/07/19 Loratadine-Pseudoeph 5-120 mg 1 tab PO Q12HR 04/18/19 05/08/19 [Claritin-D 12 Hour] Previous Rx's Medication Instructions Recorded Docusate [Colace] 100 mg PO DAILY #30 capsule 04/22/19 Hydrocodone/Acetaminophen [[place] 1 each PO Q6HR PRN #28 tab 04/22/19 5-325] Cephalexin [Keflex] 500 mg PO Q6HR #28 cap 05/08/19 Allergies Allergy/AdvReac Type Severity Reaction Status Date / Time No Known Allergies Allergy Verified 07/17/20 11:45 Review of Systems ROS Statement: Those systems with pertinent positive or pertinent negative responses have been documented in the HPI. ROS Other: All systems not noted in ROS Statement are negative. 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, DDD,spinal stenosis, chronic back pain, pancreatitis 01-05-13, degenerative disc disease Last Myocardial Infarction Date:: 2016 History of Any Multi-Drug Resistant Organisms: None Reported Past Surgical History: Cholecystectomy, Heart Catheterization With Stent, Hernia Repair, Joint Replacement Additional Past Surgical History / Comment(s): BILAT CATARACTS REMOVED, south inguinal hernia repair 1995, umbilical hernia repair x2 pain clinic procedures, 08-26-15 south l3-4,l4-5 lumbar laminectomy and medial facetectomy, lt hip replacement Past Anesthesia/Blood Transfusion Reactions: No Reported Reaction Date of Last Stent Placement:: 2016 Past Psychological History: Anxiety Smoking Status: Never smoker Past Alcohol Use History: None Reported Past Drug Use History: None Reported - Past Family History Mother Family Medical History: Coronary Artery Disease (CAD) Additional Family Medical History / Comment(s): stents cabg Father Family Medical History: Coronary Artery Disease (CAD), Vascular Disorder Additional Family Medical History / Comment(s): cabg x2 General Exam - General Exam Comments Initial Comments: General: The patient is awake and alert, in no distress Eye: +3 mm pupils are equal, round and reactive to light, extra-ocular movements are intact. No nystagmus. There is normal conjunctiva bilaterally. No signs of icterus. Ears, nose, mouth and throat: There are moist mucous membranes and no oral lesions. Neck: The neck is supple, there is no tenderness or JVD. Cardiovascular: There is a regular rate and rhythm. No murmur, rub or gallop is appreciated. Respiratory: Lungs are clear to auscultation, respirations are non-labored, breath sounds are equal. No wheezes, stridor, rales, or rhonchi. Gastrointestinal: Soft, non-distended, non-tender abdomen without masses or organomegaly noted. There is no rebound or guarding present. Musculoskeletal: Normal ROM, no tenderness. Strength 5/5. Sensation intact. Radial pulses equal bilaterally 2+. Neurological: A&O x 3. CN II-XII intact grossly, There are no obvious motor or sensory deficits. Coordination appears grossly intact. Speech is normal. Skin: Skin is warm and dry and no rashes or lesions are noted. No LE edema. Psychiatric: Cooperative, appropriate mood & affect, normal judgment. Limitations: no limitations Course Vital Signs 07/17/20 11:42 Temperature 99.1 F Pulse Rate 66 Respiratory 22 Rate Blood Pressure 114/59 O2 Sat by Pulse 94 L Oximetry Medical Decision Making - Medical Decision Making 70yo male presenting for cc of dyspnea. recent diagnosis of covid 19. hypoxic at 94%. CXR pneumonia. dexamethasone and azithromycin/rocephin intiiated in ER. patient agreeable to admission. Dr. Cook agreeable to care plan. Ventricular rate 65 bpm, AK interval 230 ms, QRS ratio 150 ms, QT/QTC 450/468 ms. This is sinus rhythm with first-degree AV block right bundle branch noted with a left axis. Nonspecific T wave changes no ST elevation or depression - Lab Data Result diagrams: 07/17/20 12:15 07/17/20 12:15 Lab Results 07/17/20 07/17/20 07/17/20 Range/Units 12:15 12:15 12:15 WBC 10.1 (3.8-10.6) k/uL RBC 4.32 (4.30-5.90) m/uL Hgb 13.8 (13.0-17.5) gm/dL Hct 38.8 L (39.0-53.0) % MCV 89.8 (80.0-100.0) fL MCH 32.1 (25.0-35.0) pg MCHC 35.7 (31.0-37.0) g/dL RDW 12.8 (11.5-15.5) % Plt Count 297 (150-450) k/uL MPV 6.7 Neutrophils % 75 % Lymphocytes % 10 % Monocytes % 7 % Eosinophils % 5 % Basophils % 1 % Neutrophils # 7.6 (1.3-7.7) k/uL Lymphocytes # 1.0 (1.0-4.8) k/uL Monocytes # 0.7 (0-1.0) k/uL Eosinophils # 0.5 (0-0.7) k/uL Basophils # 0.1 (0-0.2) k/uL PT 10.5 (9.0-12.0) sec INR 1.0 (<1.2) APTT 23.1 (22.0-30.0) sec D-Dimer 0.56 (<0.60) mg/L FEU Sodium 137 (137-145) mmol/L Potassium 3.8 (3.5-5.1) mmol/L Chloride 101 (98-107) mmol/L Carbon Dioxide 28 (22-30) mmol/L Anion Gap 8 mmol/L BUN 19 (9-20) mg/dL Creatinine 1.23 (0.66-1.25) mg/dL Est GFR (CKD-EPI)AfAm 69 (>60 ml/min/1.73 sqM) Est GFR (CKD-EPI)NonAf 59 (>60 ml/min/1.73 sqM) Glucose 117 H (74-99) mg/dL Plasma Lactic Acid Gino (0.7-2.0) mmol/L Calcium 9.0 (8.4-10.2) mg/dL Magnesium 1.7 (1.6-2.3) mg/dL Total Bilirubin 1.0 (0.2-1.3) mg/dL AST 35 (17-59) U/L ALT 23 (4-49) U/L Alkaline Phosphatase 59 (38-126) U/L Lactate Dehydrogenase 672 H (313-618) U/L C-Reactive Protein 74.0 H (<10.0) mg/L NT-Pro-B Natriuret Pep pg/mL Total Protein 6.8 (6.3-8.2) g/dL Albumin 3.7 (3.5-5.0) g/dL 07/17/20 07/17/20 Range/Units 12:15 12:15 WBC (3.8-10.6) k/uL RBC (4.30-5.90) m/uL Hgb (13.0-17.5) gm/dL Hct (39.0-53.0) % MCV (80.0-100.0) fL MCH (25.0-35.0) pg MCHC (31.0-37.0) g/dL RDW (11.5-15.5) % Plt Count (150-450) k/uL MPV Neutrophils % % Lymphocytes % % Monocytes % % Eosinophils % % Basophils % % Neutrophils # (1.3-7.7) k/uL Lymphocytes # (1.0-4.8) k/uL Monocytes # (0-1.0) k/uL Eosinophils # (0-0.7) k/uL Basophils # (0-0.2) k/uL PT (9.0-12.0) sec INR (<1.2) APTT (22.0-30.0) sec D-Dimer (<0.60) mg/L FEU Sodium (137-145) mmol/L Potassium (3.5-5.1) mmol/L Chloride (98-107) mmol/L Carbon Dioxide (22-30) mmol/L Anion Gap mmol/L BUN (9-20) mg/dL Creatinine (0.66-1.25) mg/dL Est GFR (CKD-EPI)AfAm (>60 ml/min/1.73 sqM) Est GFR (CKD-EPI)NonAf (>60 ml/min/1.73 sqM) Glucose (74-99) mg/dL Plasma Lactic Acid Gino 1.5 (0.7-2.0) mmol/L Calcium (8.4-10.2) mg/dL Magnesium (1.6-2.3) mg/dL Total Bilirubin (0.2-1.3) mg/dL AST (17-59) U/L ALT (4-49) U/L Alkaline Phosphatase (38-126) U/L Lactate Dehydrogenase (313-618) U/L C-Reactive Protein (<10.0) mg/L NT-Pro-B Natriuret Pep 275 pg/mL Total Protein (6.3-8.2) g/dL Albumin (3.5-5.0) g/dL Disposition Clinical Impression: COVID-19, Hypoxia, Cough, Dyspnea Disposition: ADMITTED IP TO THIS HOSP Condition: Stable Additional Instructions: Please use medication as discussed. Please follow-up with family doctor in the next 2 days. Please return to emergency room if the symptoms increase or worsen or for any other concerns. Is patient prescribed a controlled substance at d/c from ED?: No Referrals: Daya Boothe III, MD [Primary Care Provider] - 1-2 days Time of Disposition: 12:56 Decision to Admit Reason: Admit from EC Decision Date: 07/17/20 Decision Time: 12:56
[2020-07-17] MEDS ORDERED: NALOXONE 0.4 MG/ML 1 ML VIAL IV PRN (14:20)
[2020-07-17] MEDS ORDERED: GABAPENTIN 300 MG CAP PO PRN (16:05)
--- NOTE | 2020-07-17 16:07 | P.HPIM ---
History of Present Illness This is a pleasant 70 years old male with past medical history of hypertension, hyperlipidemia, coronary artery disease status post 2 stents and he follows up with Dr. Brian, osteoarthritis. He is a patient of Dr. 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 He drinks socially Vitas looks stable and he is saturating 95% on room air unremarkable cbc, inr, bmp, liver enzymes. d-dimer is negative at 0.56. Lactate dehydrogenase 672, C-reactive protein 74. Chest x-ray showing patchy density in the right midline and right upper lobe. Correlates for pneumonia EKG showing sinus rhythm at [address]-T changes, Review of Systems CONSTITUTIONAL: No fever, no malaise, no fatigue. HEENT: No recent visual problems or hearing problems. Denied any sore throat. CARDIOVASCULAR: No orthopnea, PND, no palpitations, no syncope. PULMONARY: No chest wall tenderness, no hemoptysis. GASTROINTESTINAL: No diarrhea, no nausea, no vomiting, no abdominal pain. Normoactive bowel sounds. NEUROLOGICAL: No headaches, no weakness, no numbness. HEMATOLOGICAL: Denies any bleeding or petechiae. GENITOURINARY: Denies any burning micturition, frequency, or urgency. MUSCULOSKELETAL/RHEUMATOLOGICAL: Denies any joint pain, swelling, or any muscle pain. ENDOCRINE: Denies any polyuria or polydipsia. 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, DDD,spinal stenosis, chronic back pain, pancreatitis 01-05-13, degenerative disc disease Last Myocardial Infarction Date:: 2016 History of Any Multi-Drug Resistant Organisms: None Reported Past Surgical History: Cholecystectomy, Heart Catheterization With Stent, Hernia Repair, Joint Replacement Additional Past Surgical History / Comment(s): BILAT CATARACTS REMOVED, south inguinal hernia repair 1995, umbilical hernia repair x2 pain clinic procedures, 08-26-15 south l3-4,l4-5 lumbar laminectomy and medial facetectomy, lt hip replacement Past Anesthesia/Blood Transfusion Reactions: No Reported Reaction Date of Last Stent Placement:: 2016 Past Psychological History: Anxiety Smoking Status: Never smoker Past Alcohol Use History: None Reported Past Drug Use History: None Reported - Past Family History Mother Family Medical History: Coronary Artery Disease (CAD) Additional Family Medical History / Comment(s): stents cabg Father Family Medical History: Coronary Artery Disease (CAD), Vascular Disorder Additional Family Medical History / Comment(s): cabg x2 Medications and Allergies Home Medications Medication Instructions Recorded Confirmed Type Aspirin EC [Ecotrin Low Dose] 81 mg PO DAILY 07/29/18 07/17/20 History Atorvastatin [Lipitor] 80 mg PO HS 07/29/18 07/17/20 History Clopidogrel [Plavix] 75 mg PO QAM 07/29/18 07/17/20 History Fenofibrate [Lofibra] 160 mg PO QAM 07/29/18 07/17/20 History Gabapentin [Neurontin] 300 mg PO TID PRN 07/29/18 07/17/20 History Hydrochlorothiazide 12.5 mg PO QAM 07/29/18 07/17/20 History [hydroCHLOROthiazide] Losartan Potassium 50 mg PO QAM 07/29/18 07/17/20 History [place]-3 Fatty Acids/Fish Oil [Fish 2 each PO DAILY 07/29/18 07/17/20 History Oil 1,000 mg Softgel] PARoxetine [Paxil] 20 mg PO QAM 07/29/18 07/17/20 History Cholecalciferol [Vitamin D3 (25 1,000 unit PO DAILY 08/02/18 07/17/20 History Mcg = 1000 Iu)] Cyanocobalamin (Vitamin B-12) 1,000 mcg PO DAILY 08/02/18 07/17/20 History [Vitamin B-12] Nitroglycerin 0.4 mg SL DIRECTED 08/02/18 07/17/20 History Metoprolol Tartrate [Lopressor] 50 mg PO BID 07/17/20 07/17/20 History Allergies Allergy/AdvReac Type Severity Reaction Status Date / Time No Known Allergies Allergy Verified 07/17/20 13:53 Physical Exam Vitals: Vital Signs Temp Pulse Resp BP Pulse Ox 07/17/20 13:33 98.8 F 65 17 100/58 95 07/17/20 11:42 99.1 F 66 22 114/59 94 L Intake and Output 07/17/20 07/17/20 07/17/20 06:59 14:59 22:59 Other: Weight 116.12 kg GENERAL: The patient is alert and oriented x3, not in any acute distress. Well developed, well nourished. HEENT: Pupils are round and equally reacting to light. EOMI. No scleral icterus. No conjunctival pallor. Normocephalic, atraumatic. No pharyngeal erythema. No thyromegaly. CARDIOVASCULAR: S1 and S2 present. No murmurs, rubs, or gallops. PULMONARY: Chest is clear to auscultation, no wheezing or crackles. ABDOMEN: Soft, nontender, nondistended, normoactive bowel sounds. No palpable organomegaly. MUSCULOSKELETAL: No joint swelling or deformity. EXTREMITIES: No cyanosis, clubbing, or pedal edema. NEUROLOGICAL: Gross neurological examination did not reveal any focal deficits. SKIN: No rashes. No petechiae Results CBC & Chem 7: 07/17/20 12:15 07/17/20 12:15 Labs: Abnormal Lab Results - Last 24 Hours (Table) 07/17/20 07/17/20 Range/Units 12:15 12:15 Hct 38.8 L (39.0-53.0) % Glucose 117 H (74-99) mg/dL Lactate Dehydrogenase 672 H (313-618) U/L C-Reactive Protein 74.0 H (<10.0) mg/L Assessment and Plan Assessment: Acute covid right side pneumonia Hypertension Hyperlipidemia History of coronary artery disease status post 2 stents Arthritis, status post hip replacement Obesity with BMI of 37 Plan: This is a pleasant 70 years old male who presents with cough and pneumonia, continue with dexamethasone, zinc and ascorbic acid. Check viralcalcitonin. Infectious disease consult Labs and medication were reviewed.. Continue same treatment. Continue with symptomatic treatment. Resume home medication. Monitor lytes and vitals. DVT and GI prophylaxis. Further recommendations depends on the clinical course of the patient DVT prophylaxis: Subcutaneous Lovenox GI Prophylaxis: Pepcid Prognosis is guarded
[2020-07-17] MEDS ORDERED: NITROGLYCERIN SL TABS 0.4 MG TAB SUBLINGUAL PRN (16:15)
[2020-07-17] MEDS: CHOLECALCIFEROL 1,000 UNIT TAB PO SCH (16:46)
[2020-07-17] MEDS: ZINC SULFATE 220 MG CAP PO SCH (16:46)
[2020-07-17 17:35] LABS: Ferritin 458.4 ng/mL (22.0-322.0)
[2020-07-17] MEDS: ATORVASTATIN 80 MG TAB PO SCH (20:12)
[2020-07-17] MEDS: ASCORBIC ACID 500 MG TAB PO SCH (20:13)
[2020-07-17] MEDS: FAMOTIDINE 20 MG/2 ML VIAL IV SCH (20:13)
[2020-07-17] MEDS: METOPROLOL TARTRATE 50 MG TAB PO SCH (20:13)
--- NOTE | 2020-07-17 22:30 | CONS ---
CONSULTATION DATE OF SERVICE: 07/17/2020. REASON FOR CONSULTATION: COVID-19 pneumonia HISTORY OF PRESENT ILLNESS: The patient is a 70-year-old male who tested positive for COVID-19 on July 05, 2019. The patient did not have any symptoms at that point. The patient mentioned that he did have exposure to a family member that was the reason for the positive testing. A few days later the patient started having shortness of breath and cough. Initially symptoms were mild. However, the symptoms progressed significantly with the patient having worsening shortness of breath on minimal exertion. The patient also had a cough which is moderate intensity, is mostly dry in nature. He is not bringing up any sputum. The patient has been complaining of bilateral lower ribcage pleuritic chest pain from coughing. The patient denies having any fever or any chills. Denies any nausea, no vomiting. No abdominal pain or any diarrhea. With these symptoms, the patient presented to hospital. On arrival to the ER, the patient was afebrile. The patient's O2 saturation was 94% on room air and with subsequent sats have been 96% on room air. The patient did have a normal white count with no lymphopenia. The patient's D-dimer was normal. Kidney function was normal. Liver enzymes are normal. Ferritin, LDH, CRP and procalcitonin was mildly elevated. The patient did have a chest x-ray which did show patchy peripheral density right middle lung and upper lobe. The patient was given a dose of dexamethasone, Rocephin and Zithromax. He was admitted to the hospital. Infectious Disease was consulted for further management. REVIEW OF SYSTEMS: Positive points have been mentioned in HPI. Rest of the systems are negative. PAST MEDICAL HISTORY: Coronary artery disease, hypertension, hyperlipidemia, osteoarthritis, head injury, pancreatitis, chronic back pain. PAST SURGICAL HISTORY: Cholecystectomy, PTCA with stent, hernia repair, bilateral inguinal hernia repair, lumbar laminectomy, left hip replacement. SOCIAL HISTORY: Denies smoking, drinking or drug use. FAMILY HISTORY: Mother history of coronary disease. Father also with a history of coronary disease. ALLERGIES: No known drug allergies. MEDICATIONS: Include the patient is currently on Tylenol, vitamin C, aspirin, Lipitor, vitamin D3, Plavix, Lovenox, Pepcid, Lofibra, Neurontin, hydrochlorothiazide, Cozaar, Narcan, zinc and Paxil received, Dexamethasone, also in the ER. PHYSICAL EXAMINATION: Blood pressure 137/74 with a pulse of 73, temperature 97.6. He is 96% on room air. General description: The patient is an elderly male lying in bed in no distress. No tachypnea or accessory muscles of respiration use. HEENT: Examination shows no pallor or scleral icterus. Oral mucous membranes dry. NECK: Trachea is central. No thyromegaly. LUNGS: Unlabored breathing, decreased intense breath sounds. No wheeze. HEART: S1, S2. Regular rate. ABDOMEN: Soft, no tenderness. No rigidity. No guarding. EXTREMITIES: No edema of the feet. SKIN examination: No rash or mass palpable. NEUROLOGICAL: Patient is awake, alert, oriented x3. Mood and affect normal. LABS: Hemoglobin is 13.8, white count 10.1. No lymphopenia. D-dimer is 0.56. Ferritin, LDH CRP elevated. Chest x-ray report as mentioned above. DIAGNOSTIC IMPRESSION AND PLAN: Patient admitted to the hospital with increasing shortness of breath and cough in this patient who did have evidence of patchy bilateral pneumonia secondary to Covid 19 more likely representing a mild infection in this patient currently with no evidence of any hypoxemia and the patient is currently more than 10 days into his symptoms out of the therapeutic benefit from Remdesivir with no hypoxemia, he will not qualify for Remdesivir. PLAN: 1. Patient given dexamethasone, Lovenox, zinc, vitamin C. 2. Rocephin 250 mg p.o. daily. 3. Droplet isolation and respiratory support. 4. We will follow on clinical condition and further adjust medication if needed. Thank you for this consultation. Will follow this patient along with you. MMODL / IJN: [id number] /
[2020-07-18] MEDS: ACETAMINOPHEN TAB 325 MG TAB PO PRN ×2 (01:45→21:34)
[2020-07-18] MEDS: hydroCHLOROthiazide 12.5 MG CAP PO SCH (09:58)
[2020-07-18] MEDS: AZITHROMYCIN 250 MG TAB PO SCH (09:58)
[2020-07-18] MEDS: ASCORBIC ACID 500 MG TAB PO SCH ×2 (09:58→20:15)
[2020-07-18] MEDS: METOPROLOL TARTRATE 50 MG TAB PO SCH ×2 (09:58→20:15)
[2020-07-18] MEDS: ASPIRIN 81 MG PO SCH (09:58)
[2020-07-18] MEDS: CHOLECALCIFEROL 1,000 UNIT TAB PO SCH (09:58)
[2020-07-18] MEDS: DEXAMETHASONE SOD PHOSPHATE 10 MG/ML 1 ML VIAL IV SCH (09:59)
[2020-07-18] MEDS: FAMOTIDINE 20 MG/2 ML VIAL IV SCH ×2 (09:59→20:15)
[2020-07-18] MEDS: ENOXAPARIN 40 MG/0.4 ML SYRINGE SQ SCH (09:59)
[2020-07-18] MEDS: LOSARTAN 50 MG TAB PO SCH (09:59)
[2020-07-18] MEDS: FENOFIBRATE 160 MG TAB PO SCH (09:59)
[2020-07-18] MEDS: PARoxetine 20 MG TAB PO SCH (09:59)
[2020-07-18] MEDS: ZINC SULFATE 220 MG CAP PO SCH (09:59)
[2020-07-18] MEDS: CYANOCOBALAMIN 500 MCG TAB PO SCH (09:59)
[2020-07-18] MEDS: CLOPIDOGREL 75 MG TAB PO SCH (09:59)
--- NOTE | 2020-07-18 11:29 | P.PN ---
Subjective This is a pleasant 70 years old male with past medical history of hypertension, hyperlipidemia, coronary artery disease status post 2 stents and he follows up with Dr. Brian, osteoarthritis. He is a patient of Dr. 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 He drinks socially Vitas looks stable and he is saturating 95% on room air unremarkable cbc, inr, b mp, liver enzymes. d-dimer is negative at 0.56. Lactate dehydrogenase 672, C- reactive protein 74. Chest x-ray showing patchy density in the right midline and right upper lobe. Correlates for pneumonia EKG showing sinus rhythm at [address]-T changes, 07/18/2020 Patient breathing quietly, no dyspnea or cough and no chest pain. No other complaints, patient he feels better compared to yesterday. He is saturating 96% on room air this morning compared to 89-91 yesterday. Labs on admission looks stable. He has increased inflammatory markers Patient is on Zithromax 250 mg daily. Hiscalcitonin was slightly elevated. Also patient is on Lovenox, zinc and vitamin C Patient is clinically improving Consider discharge once cleared by infectious disease team and keeping improvem ent Objective - Vital Signs Vital signs: Vital Signs Temp 98.0 F 07/18/20 10:07 Pulse 68 07/18/20 10:07 Resp 19 07/18/20 10:07 BP 110/63 07/18/20 10:07 Pulse Ox 96 07/18/20 10:07 Intake & Output 07/17/20 07/18/20 07/18/20 18:59 06:59 18:59 Intake Total 350 Balance 350 Weight 116.12 kg Intake: Intake, IV Titration 50 Amount cefTRIAXone 1 gm In 50 Sodium Chloride 0.9% 50 ml @ 100 mls/hr IVPB ONCE STA Rx#:[id number] Oral 300 Other: # Voids 1 3 - Exam GENERAL: The patient is alert and oriented x3, not in any acute distress. Well developed, well nourished. HEENT: Pupils are round and equally reacting to light. EOMI. No scleral icterus. No conjunctival pallor. Normocephalic, atraumatic. No pharyngeal erythema. No thyromegaly. CARDIOVASCULAR: S1 and S2 present. No murmurs, rubs, or gallops. PULMONARY: Chest is clear to auscultation, no wheezing or crackles. ABDOMEN: Soft, nontender, nondistended, normoactive bowel sounds. No palpable organomegaly. MUSCULOSKELETAL: No joint swelling or deformity. EXTREMITIES: No cyanosis, clubbing, or pedal edema. NEUROLOGICAL: Gross neurological examination did not reveal any focal deficits. SKIN: No rashes. no petechiae. - Labs CBC & Chem 7: 07/17/20 12:15 07/17/20 12:15 Labs: Abnormal Lab Results - Last 24 Hours (Table) 07/17/20 07/17/20 07/17/20 Range/Units 12:15 12:15 12:15 Hct 38.8 L (39.0-53.0) % Glucose 117 H (74-99) mg/dL Ferritin 458.4 H (22.0-322.0) ng/mL Lactate Dehydrogenase 672 H (313-618) U/L C-Reactive Protein 74.0 H (<10.0) mg/L Procalcitonin 0.12 H (0.02-0.09) ng/mL Assessment and Plan Assessment: Acute covid right side pneumonia Hypertension Hyperlipidemia History of coronary artery disease status post 2 stents Arthritis, status post hip replacement Obesity with BMI of 37 Plan: This is a pleasant 70 years old male who presents with cough and pneumonia, continue with dexamethasone, zinc and ascorbic acid. Check viralcalcitonin. Infectious disease consult Labs and medication were reviewed.. Continue same treatment. Continue with symptomatic treatment. Resume home medication. Monitor lytes and vitals. DVT and GI prophylaxis. Further recommendations depends on the clinical course of the patient DVT prophylaxis: Subcutaneous Lovenox GI Prophylaxis: Pepcid Prognosis is guarded
[2020-07-18] MEDS: ATORVASTATIN 80 MG TAB PO SCH (20:15)
--- NOTE | 2020-07-18 22:25 | PN ---
PROGRESS NOTE DATE OF SERVICE: 07/18/2020 REASON FOR FOLLOWUP: COVID-19 pneumonia. INTERVAL HISTORY: Patient is currently afebrile. The patient is breathing more comfortably. Denies any chest pain. Occasional cough. No nausea, vomiting, abdominal pain or diarrhea. PHYSICAL EXAMINATION: Blood pressure 150/90. Pulse of 62, temperature 97.9. He is 95% on room air. General description is an elderly male lying in bed in no distress. Respiratory system: Unlabored breathing. Clear to auscultation. No wheeze or crackles. Heart S1, S2. Regular rate and rhythm. Abdomen soft, no tenderness. LABS: No new labs have been obtained today. DIAGNOSTIC IMPRESSION/PLAN: Patient admitted to the hospital with acute COVID-19 pneumonia in this patient who has been out of the therapeutic window for Remdesivir, also not hypoxic. The patient is currently being treated with Lovenox, Dexamethasone, zinc to continue along with respiratory support. If continues to improve, no need for any supplemental oxygen. May be able to go home in the morning. Questions and concerns were answered. MMODL / IJN: [id number] /
[2020-07-19 06:05] LABS: Basophils # (A) 0.1 k/uL (0-0.2); Basophils % (A) 1 %; Eosinophils # (A) 0.1 k/uL (0-0.7); Eosinophils % (A) 0 %; Lymphocytes # (A) 1.3 k/uL (1.0-4.8); Lymphocytes % (A) 9 %; MCH 30.6 pg (25.0-35.0); MCHC 33.4 g/dL (31.0-37.0); MCV 91.6 fL (80.0-100.0); Mean Platelet Volume 6.9; Monocytes % (A) 7 %; Neutrophils # (A) 12.1 k/uL (1.3-7.7); Neutrophils % (A) 82 %; Platelet Count 412 k/uL (150-450); RBC 4.26 m/uL (4.30-5.90); WBC 14.7 k/uL (3.8-10.6)
[2020-07-19] MEDS: ASCORBIC ACID 500 MG TAB PO SCH ×2 (06:47→20:45)
[2020-07-19] MEDS: hydroCHLOROthiazide 12.5 MG CAP PO SCH (06:47)
[2020-07-19] MEDS: ASPIRIN 81 MG PO SCH (06:48)
[2020-07-19] MEDS: PARoxetine 20 MG TAB PO SCH (06:48)
[2020-07-19] MEDS: FENOFIBRATE 160 MG TAB PO SCH (06:48)
[2020-07-19] MEDS: CYANOCOBALAMIN 500 MCG TAB PO SCH (06:48)
[2020-07-19] MEDS: METOPROLOL TARTRATE 50 MG TAB PO SCH ×2 (06:48→20:45)
[2020-07-19] MEDS: CLOPIDOGREL 75 MG TAB PO SCH (06:48)
[2020-07-19] MEDS: LOSARTAN 50 MG TAB PO SCH (06:49)
[2020-07-19] MEDS: ZINC SULFATE 220 MG CAP PO SCH (06:49)
[2020-07-19] MEDS: AZITHROMYCIN 250 MG TAB PO SCH (06:50)
[2020-07-19] MEDS: CHOLECALCIFEROL 1,000 UNIT TAB PO SCH (06:50)
[2020-07-19] MEDS: FAMOTIDINE 20 MG/2 ML VIAL IV SCH (06:51)
[2020-07-19] MEDS: ENOXAPARIN 40 MG/0.4 ML SYRINGE SQ SCH (06:51)
[2020-07-19] MEDS: DEXAMETHASONE SOD PHOSPHATE 10 MG/ML 1 ML VIAL IV SCH (06:51)
[2020-07-19 09:30] LABS: African American GFR (CKD) 70.6 (60.0-200.0); Anion Gap 12.1 mmol/L (4.00-12.00); C Reactive Protein 4.3 mg/dL (0.0-0.8); Calcium 9.3 mg/dL (8.7-10.3); Carbon Dioxide 25.9 mmol/L (21.6-31.8); Non-African American GFR(CKD) 60.9 (60.0-200.0); Potassium 4.1 mmol/L (3.5-5.5)
--- NOTE | 2020-07-19 11:42 | P.PN ---
Subjective This is a pleasant 70 years old male with past medical history of hypertension, hyperlipidemia, coronary artery disease status post 2 stents and he follows up with Dr. Brian, osteoarthritis. He is a patient of Dr. 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 He drinks socially Vitas looks stable and he is saturating 95% on room air unremarkable cbc, inr, b mp, liver enzymes. d-dimer is negative at 0.56. Lactate dehydrogenase 672, C- reactive protein 74. Chest x-ray showing patchy density in the right midline and right upper lobe. Correlates for pneumonia EKG showing sinus rhythm at [address]-T changes, 07/18/2020 Patient breathing quietly, no dyspnea or cough and no chest pain. No other complaints, patient he feels better compared to yesterday. He is saturating 96% on room air this morning compared to 89-91 yesterday. Labs on admission looks stable. He has increased inflammatory markers Patient is on Zithromax 250 mg daily. Hiscalcitonin was slightly elevated. Also patient is on Lovenox, zinc and vitamin C Patient is clinically improving Consider discharge once cleared by infectious disease team and keeping improvem ent 07/19/2020 Patient with no dyspnea or chest pain. However is still limited hypoxic today at 91 to 92% on room air. Also patient is a little bit tachypneic at 22 breaths per minute. However inflammatory markers are trending down Although patient may be cleared for discharge per ID team recommendation, as Patient still does not need supplemental oxygen however we will keep the patient for 24 hours as there is slightly dropp of his oxygen saturation from 95 down to 92% and his become slightly tachypneic today We will reassess in the morning. Infectious disease input is appreciated Objective - Vital Signs Vital signs: Vital Signs Temp 97.9 F 07/19/20 08:00 Pulse 60 07/19/20 08:00 Resp 16 07/19/20 08:00 BP 134/72 07/19/20 08:00 Pulse Ox 92 L 07/19/20 08:00 Intake & Output 07/18/20 07/19/2007/19/21 18:59 06:59 18:59 Intake Total 300 Balance 300 Intake: Oral 300 Other: # Voids 3 3 - Exam GENERAL: The patient is alert and oriented x3, not in any acute distress. Well developed, well nourished. HEENT: Pupils are round and equally reacting to light. EOMI. No scleral icterus. No conjunctival pallor. Normocephalic, atraumatic. No pharyngeal erythema. No thyromegaly. CARDIOVASCULAR: S1 and S2 present. No murmurs, rubs, or gallops. PULMONARY: Chest is clear to auscultation, no wheezing or crackles. ABDOMEN: Soft, nontender, nondistended, normoactive bowel sounds. No palpable organomegaly. MUSCULOSKELETAL: No joint swelling or deformity. EXTREMITIES: No cyanosis, clubbing, or pedal edema. NEUROLOGICAL: Gross neurological examination did not reveal any focal deficits. SKIN: No rashes. no petechiae. - Labs CBC & Chem 7: 07/19/20 05:48 07/19/20 05:48 Labs: Abnormal Lab Results - Last 24 Hours (Table) 07/19/20 07/19/20 Range/Units 05:48 05:48 WBC 14.7 H (3.8-10.6) k/uL RBC 4.26 L (4.30-5.90) m/uL Neutrophils # 12.1 H (1.3-7.7) k/uL Anion Gap 12.10 H (4.00-12.00) mmol/L BUN 30.0 H (9.0-27.0) mg/dL BUN/Creatinine Ratio 25.00 H (12.00-20.00) Ratio Glucose 138 H (70-110) mg/dL Lactate Dehydrogenase 254 H (120-246) U/L C-Reactive Protein 4.3 H (0.0-0.8) mg/dL Microbiology - Last 24 Hours (Table) 07/17/20 12:15 Blood Culture - Preliminary Blood No Growth after 24 hours Assessment and Plan Assessment: Acute covid right side pneumonia Hypertension Hyperlipidemia History of coronary artery disease status post 2 stents Arthritis, status post hip replacement Obesity with BMI of 37 Plan: This is a pleasant 70 years old male who presents with cough and pneumonia, continue with dexamethasone, zinc and ascorbic acid. Check viralcalcitonin. Infectious disease consult Labs and medication were reviewed.. Continue same treatment. Continue with symptomatic treatment. Resume home medication. Monitor lytes and vitals. DVT and GI prophylaxis. Further recommendations depends on the clinical course of the patient DVT prophylaxis: Subcutaneous Lovenox GI Prophylaxis: Pepcid Prognosis is guarded
--- NOTE | 2020-07-19 14:48 | P.PN ---
Subjective Progress Note Date: 07/19/20 HISTORY OF PRESENT ILLNESS This is a 70-year-old male treated for COVID-19 pneumonia. Patient w as outside the therapeutic window for Remdesivir and was not hypoxic. Patient has a little cough. No shortness of breath. No abdominal pain, nausea vomiting or diarrhea. Patient has been afebrile, heart rate 60, blood pressure 134/72, pulse ox 92% on room air. WBC 14.7, hemoglobin 13.0. Creatinine 1.2. LDH 254, C-reactive protein 4.3. PHYSICAL EXAMINATION Gen: This is a 70-year-old male. HEENT: Head is atraumatic, normocephalic. Pupils equal, round. Sclerae is anicteric. NECK: Supple. No JVD. No lymphadenopathy. LUNGS: Diminished at the bases. No wheezes or rhonchi. No intercostal retractions. HEART: Regular rate and rhythm. No murmur. ABDOMEN: Soft. Bowel sounds are present. No masses. No tenderness. EXTREMITIES: No pedal edema. No calf tenderness. NEUROLOGICAL: Patient is awake, alert and oriented x3. ASSESSMENT Mild Covid 19 pneumonia No hypoxia PLAN Continue dexamethasone for 4 more days, prescription sent to pharmacy Incentive spirometry to be sent home with the patient. A Zithromax and 500 mg daily for 3 days, prescription sent to pharmacy The above dictated assessment and findings were discussed with Dr. Peres. The impression and plan of care have been directed as dictated. Aisha Norman nurse practitioner acting as scribe for Dr. Peres. Objective - Vital Signs Vital signs: Vital Signs Temp 97.9 F 07/19/20 08:00 Pulse 60 07/19/20 08:00 Resp 16 07/19/20 08:00 BP 134/72 07/19/20 08:00 Pulse Ox 92 L 07/19/20 08:00 Intake & Output 07/18/20 07/19/20 07/19/20 18:59 06:59 18:59 Intake Total 300 Balance 300 Intake: Oral 300 Other: # Voids 3 3 - Labs CBC & Chem 7: 07/19/20 05:48 07/19/20 05:48 Labs: Abnormal Lab Results - Last 24 Hours (Table) 07/19/20 07/19/20 Range/Units 05:48 05:48 WBC 14.7 H (3.8-10.6) k/uL RBC 4.26 L (4.30-5.90) m/uL Neutrophils # 12.1 H (1.3-7.7) k/uL Anion Gap 12.10 H (4.00-12.00) mmol/L BUN 30.0 H (9.0-27.0) mg/dL BUN/Creatinine Ratio 25.00 H (12.00-20.00) Ratio Glucose 138 H (70-110) mg/dL Lactate Dehydrogenase 254 H (120-246) U/L C-Reactive Protein 4.3 H (0.0-0.8) mg/dL Microbiology - Last 24 Hours (Table) 07/17/20 12:15 Blood Culture - Preliminary Blood No Growth after 24 hours
[2020-07-19] MEDS: ATORVASTATIN 80 MG TAB PO SCH (20:45)
[2020-07-19] MEDS: FAMOTIDINE 20 MG TAB PO SCH (20:45)
[2020-07-19] MEDS: ACETAMINOPHEN TAB 325 MG TAB PO PRN (20:52)
[2020-07-20] MEDS: DEXAMETHASONE SOD PHOSPHATE 10 MG/ML 1 ML VIAL IV SCH (08:45)
[2020-07-20] MEDS: hydroCHLOROthiazide 12.5 MG CAP PO SCH (08:45)
[2020-07-20] MEDS: ZINC SULFATE 220 MG CAP PO SCH (08:46)
[2020-07-20] MEDS: CHOLECALCIFEROL 1,000 UNIT TAB PO SCH (08:46)
[2020-07-20] MEDS: FAMOTIDINE 20 MG TAB PO SCH (08:46)
[2020-07-20] MEDS: CYANOCOBALAMIN 500 MCG TAB PO SCH (08:46)
[2020-07-20] MEDS: FENOFIBRATE 160 MG TAB PO SCH (08:46)
[2020-07-20] MEDS: CLOPIDOGREL 75 MG TAB PO SCH (08:46)
[2020-07-20] MEDS: ENOXAPARIN 40 MG/0.4 ML SYRINGE SQ SCH (08:46)
[2020-07-20] MEDS: ASPIRIN 81 MG PO SCH (08:46)
[2020-07-20] MEDS: ASCORBIC ACID 500 MG TAB PO SCH (08:46)
[2020-07-20] MEDS: METOPROLOL TARTRATE 50 MG TAB PO SCH (08:46)
[2020-07-20] MEDS: LOSARTAN 50 MG TAB PO SCH (08:46)
[2020-07-20] MEDS: PARoxetine 20 MG TAB PO SCH (08:46)
[2020-07-20] MEDS: AZITHROMYCIN 250 MG TAB PO SCH (08:47)
[2020-07-20 10:39] VITALS: BP 124/63; PULSE 57; RESP 20; TEMP 98.2
--- NOTE | 2020-07-20 12:53 | PN ---
PROGRESS NOTE DATE OF SERVICE: 07/20/2020 REASON FOR FOLLOWUP: COVID-19 infection. INTERVAL HISTORY: The patient is currently afebrile. The patient is breathing comfortably. Currently 96% on room air. The patient denies having any chest pain or shortness of breath, minimal cough. No vomiting. No abdominal pain or diarrhea. PHYSICAL EXAMINATION: Blood pressure 124/63, pulse of 57, temperature 98.2. He is 96% on room air. General description is an elderly male lying in bed in no distress. RESPIRATORY SYSTEM: Unlabored breathing, clear to auscultation. No wheeze or crackle. HEART: S1, S2. Regular rate and rhythm. ABDOMEN: Soft. No tenderness. LABS: No new labs have been obtained today. DIAGNOSTIC IMPRESSION AND PLAN: Patient with acute COVID-19 pneumonia, mild infection. This patient has shown overall clinical improvement. The patient did not require any supplemental oxygen and symptoms have improved. Will give a short course of oral dexamethasone and Zithromax on discharge. All his questions and concerns were answered. MMODL / IJN: [id number] /
--- NOTE | 2020-07-21 01:22 | P.DS ---
Providers Date of admission: 07/17/20 14:18 Attending physician: Frank Miranda MD Consults: 07/17/20 15:34 Consult Physician Routine Consulting Provider: Shmuel Peres Consult Reason/Comments: covid Do you want consulting provider notified?: Yes Primary care physician: Dyaa Boothe Hospital Course: Diagnoses: Acute covid right side pneumonia Hypertension Hyperlipidemia History of coronary artery disease status post 2 stents Arthritis, status post hip replacement Obesity with BMI of 37 Hospital course: This is a pleasant 70 years old male with past medical history of hypertension, hyperlipidemia, coronary artery disease status post 2 stents and he follows up with Dr. Brian, osteoarthritis. He is a patient of Dr. 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 Procalcitonin is slightly elevated at 0.12. Chin has been evaluated by infectious disease team, patient remains clinically stable and room air over several days with no worsening in his breathing better actually over the last 2-3 days he was breathing normally and quietly. No chest pain. And on the day of discharge he denies dyspnea no pain anywhere in the body, no nausea vomiting, no change in urine or bowel habits. No fever Patient agrees to go home and feels is a stable Patient was cleared for discharge by infectious disease team Prescription was sent for a few more days of dexamethasone and Zithromax per ID team recommendation Problems and management plan were discussed with the patient and he verbalized understanding and acceptance Patient was found stable and can be discharged home however he needs follow-up as an outpatient. Patient was instructed to follow up with PCP Dr. Boothe within one week and patient agrees to call and make appointment Physical exam Gen: patient is a AAOx3, no distress. Obese CVS: S1-S2, RRR, no murmur Lungs: B/L CTA, no wheezing Abdomen: soft, no distention, no tenderness, positive bowel sounds Extremity: no leg edema or induration Time spent more than 35 minutes Patient Condition at Discharge: Stable Plan - Discharge Summary Discharge Rx Participant: No New Discharge Prescriptions: New Dexamethasone 6 mg PO DAILY #4 tablet Azithromycin [Zithromax Tri-David (3 tabs)] 500 mg PO DAILY 3 Days #3 tab Zinc Sulfate [Orazinc] 220 mg PO DAILY #30 cap Famotidine [Pepcid] 20 mg PO Q12HR #30 tab Acetaminophen Tab [Tylenol] 650 mg PO Q6HR PRN tab PRN Reason: Mild Pain Or Fever > 100.5 Ascorbic Acid [Vitamin C] 500 mg PO BID #30 tab Continue Gabapentin [Neurontin] 300 mg PO TID PRN PRN Reason: Spasms Clopidogrel [Plavix] 75 mg PO QAM Atorvastatin [Lipitor] 80 mg PO HS Hydrochlorothiazide [hydroCHLOROthiazide] 12.5 mg PO QAM Fenofibrate [Lofibra] 160 mg PO QAM PARoxetine [Paxil] 20 mg PO QAM Losartan Potassium 50 mg PO QAM Aspirin EC [Ecotrin Low Dose] 81 mg PO DAILY [place]-3 Fatty Acids/Fish Oil [Fish Oil 1,000 mg Softgel] 2 each PO DAILY Nitroglycerin 0.4 mg SL DIRECTED Cyanocobalamin (Vitamin B-12) [Vitamin B-12] 1,000 mcg PO DAILY Cholecalciferol [Vitamin D3 (25 Mcg = 1000 Iu)] 1,000 unit PO DAILY Metoprolol Tartrate [Lopressor] 50 mg PO BID Discharge Medication List Aspirin EC [Ecotrin Low Dose] 81 mg PO DAILY 07/29/18 [History] Atorvastatin [Lipitor] 80 mg PO HS 07/29/18 [History] Clopidogrel [Plavix] 75 mg PO QAM 07/29/18 [History] Fenofibrate [Lofibra] 160 mg PO QAM 07/29/18 [History] Gabapentin [Neurontin] 300 mg PO TID PRN 07/29/18 [History] Hydrochlorothiazide [hydroCHLOROthiazide] 12.5 mg PO QAM 07/29/18 [History] Losartan Potassium 50 mg PO QAM 07/29/18 [History] [place]-3 Fatty Acids/Fish Oil [Fish Oil 1,000 mg Softgel] 2 each PO DAILY 07/29/18 [History] PARoxetine [Paxil] 20 mg PO QAM 07/29/18 [History] Cholecalciferol [Vitamin D3 (25 Mcg = 1000 Iu)] 1,000 unit PO DAILY 08/02/18 [History] Cyanocobalamin (Vitamin B-12) [Vitamin B-12] 1,000 mcg PO DAILY 08/02/18 [History] Nitroglycerin 0.4 mg SL DIRECTED 08/02/18 [History] Metoprolol Tartrate [Lopressor] 50 mg PO BID 07/17/20 [History] Azithromycin [Zithromax Tri-David (3 tabs)] 500 mg PO DAILY 3 Days #3 tab 07/19/20 [Rx] Dexamethasone 6 mg PO DAILY #4 tablet 07/19/20 [Rx] Acetaminophen Tab [Tylenol] 650 mg PO Q6HR PRN tab 07/20/20 [Rx] Ascorbic Acid [Vitamin C] 500 mg PO BID #30 tab 07/20/20 [Rx] Famotidine [Pepcid] 20 mg PO Q12HR #30 tab 07/20/20 [Rx] Zinc Sulfate [Orazinc] 220 mg PO DAILY #30 cap 07/20/20 [Rx] Follow up Appointment(s)/Referral(s): Daya Boothe III, MD [Primary Care Provider] - 07/22/20 3:30 pm ( Telephone call to [phone]pm [address] Dr Darryl Boothe (This is not an office visit due to COVID-19. This is a telehealth follow up with Dr Boothe.)) Patient Instructions/Handouts: Viral Pneumonia (DC), Droplet Precautions (GEN) Activity/Diet/Wound Care/Special Instructions: Please use medication as discussed. Please follow-up with family doctor in the next 2 days. Please return to emergency room if the symptoms increase or worsen or for any other concerns. heart healthy diet activity is restricted till you see your doctor Discharge Disposition: HOME SELF-CARE
[2020-07-21] MEDS ORDERED: CHOLECALCIFEROL 25 MCG (1000 IU) TABLET PO SCH (09:00)
== END 2020-07-20 14:38 | disposition home or self-care (01) | DRG 177 ==
LOC: EC 11:37 → 6NMEDSUR 14:18 → 4SSUR 15:23
PROVIDERS: ADMIT Internal Medicine; ATTEND Internal Medicine
DX: U07.1 COVID-19 (principal); J12.82 Pneumonia due to coronavirus disease 2019; I10 Essential (primary) hypertension; E78.5 Hyperlipidemia, unspecified; I25.10 Atherosclerotic heart disease of native coronary artery without angina pectoris; E66.9 Obesity, unspecified; Z96.649 Presence of unspecified artificial hip joint; M19.90 Unspecified osteoarthritis, unspecified site; M48.00 Spinal stenosis, site unspecified; I44.0 Atrioventricular block, first degree; Z96.642 Presence of left artificial hip joint; F41.9 Anxiety disorder, unspecified; Z82.49 Family history of ischemic heart disease and other diseases of the circulatory system; Z79.02 Long term (current) use of antithrombotics/antiplatelets; Z95.5 Presence of coronary angioplasty implant and graft; Z68.37 Body mass index [BMI] 37.0-37.9, adult; I25.2 Old myocardial infarction; Z87.828 Personal history of other (healed) physical injury and trauma; Z87.19 Personal history of other diseases of the digestive system; Z90.49 Acquired absence of other specified parts of digestive tract; Z98.890 Other specified postprocedural states; Z98.42 Cataract extraction status, left eye; Z98.41 Cataract extraction status, right eye; Z79.82 Long term (current) use of aspirin; Z79.899 Other long term (current) drug therapy
CPT/HCPCS: 36415; 71045; 80048; 80053; 82728; 83605; 83615; 83735; 83880; 84145; 84484; 85025; 85379; 85610; 85730; 86140; 87040; 87635; 93005; 96361; 96365; 96366; 96367; 96375; 99285

== ENCOUNTER → 2020-08-03 | Outpatient (CLI) | payer MEDICARE ==
--- NOTE | 2020-08-03 14:25 | XR ---
EXAMINATION TYPE: XR chest 2V DATE OF EXAM: 08/03/2020 COMPARISON: 07/17/2020 INDICATION: Covid TECHNIQUE: Frontal and lateral views of the chest are obtained. FINDINGS: The heart size is normal. The pulmonary vasculature is normal. Mild nonspecific infiltrate is through the right mid and lower lung field. Findings can be compatible with atypical pneumonia. Some minimal peripheral left midlung infiltrate may be present. IMPRESSION: 1. Minimal peripheral midlung and right mid and lower lung field infiltrates. Findings can be compati ble with atypical pneumonia.
== END | disposition home or self-care (01) ==
LOC: RADXRMAIN 13:04
PROVIDERS: ATTEND Family Medicine
DX: R91.8 Other nonspecific abnormal finding of lung field (principal); U07.1 COVID-19
CPT/HCPCS: 71046

== ENCOUNTER → 2020-11-18 | Outpatient (CLI) | payer MEDICARE ==
--- NOTE | 2020-11-18 23:15 | CONS ---
CONSULTATION DATE OF SERVICE: 11/18/2020 This 70-year-old gentleman has been evaluated in the sleep center for possible obstructive sleep apnea-hypopnea syndrome. HISTORY OF PRESENT ILLNESS/SLEEP-WAKE EVALUATION: Patient's usual sleep schedule: He goes to bed between 11 p.m. and 2 a.m. According to his , he usually goes to bed around 2 a.m. and he sleeps until 9 or 9:30 a.m. He does have problems with falling asleep, sometimes watches TV in the bedroom. He sleeps usually on the side position. He snores and wakes up from sleep about 2 times with one episode of nocturia and dry mouth. In the morning the patient wakes up tired, falling asleep during the day. He has problems with memory. [place] Sleepiness Scale is 6. He may take one nap in the morning or afternoon. No history of hypnagogic hallucinations, sleep paralysis or cataplexy. PAST MEDICAL HISTORY: Positive for coronary artery disease with a history of 2 heart attacks and stent insertion, hypertension, hyperlipidemia. PAST SURGICAL HISTORY: Surgery for triple hernia, stent insertions, cholecystectomy, left hip replacement in April 2019, broken skull. MEDICATIONS: 1. Paroxetine 20 mg once a day. 2. Aspirin 81 mg once a day. 3. Metoprolol 50 mg twice a day. 4. Losartan 50 mg once a day. 5. Fenofibrate 160 mg once a day. 6. Hydrochlorothiazide 12.5 mg once a day. 7. Atorvastatin 80 mg at bedtime. 8. Clopidogrel 75 mg once a day. 9. Fish oil 2000 mg in the morning. 10.Nitrostat 4 mg as needed. 11.Vitamins B12, D3, C, zinc supplements. SOCIAL HISTORY: Positive for smoking about one pack a day for 20 years, quit in 1984. Alcohol consumption: None at the present time. FAMILY HISTORY: Positive for cancer. REVIEW OF SYSTEMS: No fevers. No double vision. No recent chest pain. No shortness of breath. No abdominal pain. No bleeding episodes. No blood in the urine. No seizure episodes. Snoring, awakenings from sleep. PHYSICAL EXAMINATION: GENERAL: A pleasant gentleman without distress. VITAL SIGNS: BP 145/75, HR 65, RR 16, height 5 feet 7 inches, weight 258.2 pounds. Body mass index 40.5, temperature 97.3, oxygen saturation at room air 93%. HEENT: PERRLA, EOMI. Evaluation of oropharynx showed tongue protrudes midline. Extremely low position of soft palate. Mallampati IV. NECK: Supple. No JVD. Thyroid is not palpable. Wide neck; 18 inches in circumference. LUNGS: Clear to percussion and to auscultation. Good air exchange. No wheezing or rhonchi. HEART: S1, S2 regular. No murmurs, gallops or rubs. ABDOMEN: Soft and nontender. Bowel sounds are present. No organomegaly appreciated. EXTREMITIES: No clubbing or cyanosis. TV NEWS DIRECTOR: Awake, alert, and oriented X3. Cranial nerves 2 to 7 intact. There is no fasciculation or atrophy. noted. No focal deficits observed. IMPRESSION: 1. Snoring, awakenings from sleep, extremely low position of soft palate, Mallampati IV, wide neck, 18 inches in circumference; obstructive sleep apnea-hypopnea syndrome. 2. Obesity. BMI 40.5. 3. Hypertension. 4. Coronary artery disease, status post 2 heart attacks and stent insertions. 5. Hyperlipidemia. 6. History of ? COVID-19. 7. Status post left hip replacement. 8. Status post cholecystectomy. 9. Status post triple hernia repair. 10.History of broken skull in the past. PLAN: 1. Polysomnography for evaluation of patient's breathing during sleep. 2. CPAP/BiPAP titration if sleep study confirms obstructive sleep apnea-hypopnea syndrome. 3. Preferable position during sleep on the side. 4. No driving if patient feels any sleepiness. 5. I will see patient for follow up visit to explain results of testing and following plan. Thank you very much for referring this patient for consultation. Sincerely, Cirilo Lisa MD, PhD, FAASM Diplomat of [employer] Librarian of [facility] [place] MMODL / IJN: [id number] /
== END ==
LOC: SLEEP 15:39
PROVIDERS: ATTEND Internal Medicine
DX: G47.33 Obstructive sleep apnea (adult) (pediatric) (principal); E66.9 Obesity, unspecified; I10 Essential (primary) hypertension; I25.10 Atherosclerotic heart disease of native coronary artery without angina pectoris; E78.5 Hyperlipidemia, unspecified; Z96.642 Presence of left artificial hip joint; Z90.49 Acquired absence of other specified parts of digestive tract; Z98.890 Other specified postprocedural states; Z87.81 Personal history of (healed) traumatic fracture; Z68.41 Body mass index [BMI] 40.0-44.9, adult; Z95.5 Presence of coronary angioplasty implant and graft; Z79.82 Long term (current) use of aspirin; Z79.899 Other long term (current) drug therapy; Z87.891 Personal history of nicotine dependence
CPT/HCPCS: 99211

== ENCOUNTER 2022-10-07 10:13 | Observation (INO) | payer MEDICARE ==
[2022-10-07] MEDS ORDERED: NITROGLYCERIN OINT 1 INCH/GM PACKET TOPICAL STA (10:30)
[2022-10-07] MEDS ORDERED: ASPIRIN 81 MG PO STA (10:30)
--- NOTE | 2022-10-07 10:40 | ED ---
General Adult HPI - General Chief complaint: Chest Pain Stated complaint: Chest pain Time Seen by Provider: 10/07/22 10:15 Source: patient, RN notes reviewed, old records reviewed Mode of arrival: ambulatory Limitations: no limitations - History of Present Illness Initial comments: This a 72-year-old male presents emergency department with past medical history significant for high blood pressure high cholesterol and coronary artery disease with 2 stents. Patient comes in today stating at 1:30 morning he had chest pain he took a nitroglycerin and it went away. Patient states he woke up this morning about 7:30 had more chest pain to another nitroglycerin and it went away. Patient states that is worn off and now the chest pain his back does not radiate anywhere it does cause him some shortness of breath last night he was diaphoretic. Patient denies any nausea per patient's abdominal pain. Patient states his pain is the same type of pain that he had with his heart attack and just not as severe today. Patient denies any headache patient denies lightheadedness or dizziness. - Related Data Home Medications Medication Instructions Recorded Confirmed Aspirin EC [Ecotrin Low Dose] 81 mg PO DAILY 07/29/18 10/07/22 Atorvastatin [Lipitor] 80 mg PO HS 07/29/18 10/07/22 Clopidogrel [Plavix] 75 mg PO DAILY 07/29/18 10/07/22 Fenofibrate [Lofibra] 160 mg PO DAILY 07/29/18 10/07/22 [place]-3 Fatty Acids/Fish Oil [Fish 2 cap PO DAILY 07/29/18 10/07/22 Oil 1,000 mg Softgel] PARoxetine [Paxil] 20 mg PO DAILY 07/29/18 10/07/22 hydroCHLOROthiazide 12.5 mg PO DAILY 07/29/18 10/07/22 Cyanocobalamin (Vitamin B-12) 1,000 mcg PO DAILY 08/02/18 10/07/22 [Vitamin B-12] Nitroglycerin 0.4 mg SL DIRECTED PRN 08/02/18 10/07/22 Metoprolol Tartrate [Lopressor] 50 mg PO BID 07/17/20 10/07/22 Ascorbic Acid [Vitamin C] 500 mg PO DAILY 10/07/22 10/07/22 Cholecalciferol [Vitamin D3 (25 25 mcg PO DAILY 10/07/22 10/07/22 Mcg = 1000 Iu)] Losartan Potassium [Cozaar] 50 mg PO DAILY 10/07/22 10/07/22 Zinc Gluconate [Zinc] 50 mg PO DAILY 10/07/22 10/07/22 Allergies Allergy/AdvReac Type Severity Reaction Status Date / Time No Known Allergies Allergy Verified 10/07/22 11:41 Review of Systems ROS Statement: Those systems with pertinent positive or pertinent negative responses have been documented in the HPI. ROS Other: All systems not noted in ROS Statement are negative. 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, DDD,spinal stenosis, chronic back pain, pancreatitis 01-05-13, degenerative disc disease Last Myocardial Infarction Date:: 2016 History of Any Multi-Drug Resistant Organisms: None Reported Past Surgical History: Cholecystectomy, Heart Catheterization With Stent, Hernia Repair, Joint Replacement Additional Past Surgical History / Comment(s): BILAT CATARACTS REMOVED, south inguinal hernia repair 1995, umbilical hernia repair x2 pain clinic procedures, 08-26-15 south l3-4,l4-5 lumbar laminectomy and medial facetectomy, lt hip replacement Past Anesthesia/Blood Transfusion Reactions: No Reported Reaction Date of Last Stent Placement:: 2016 Past Psychological History: Anxiety Smoking Status: Never smoker Past Alcohol Use History: None Reported Past Drug Use History: None Reported - Past Family History Mother Family Medical History: Coronary Artery Disease (CAD) Additional Family Medical History / Comment(s): stents cabg Father Family Medical History: Coronary Artery Disease (CAD), Vascular Disorder Additional Family Medical History / Comment(s): cabg x2 General Exam - General Exam Comments Initial Comments: GENERAL: Patient is well-developed and well-nourished. Patient is nontoxic and well- hydrated and is in no acute distress. ENT: Neck is soft and supple. No significant lymphadenopathy is noted. Oropharynx is clear. Moist mucous membranes. Neck has full range of motion without eliciting any pain. 6640 EYES: The sclera were anicteric and conjunctiva were pink and moist. Extraocular movements were intact and pupils were equal round and reactive to light. Eyelids were unremarkable. PULMONARY: Unlabored respirations. Good breath sounds bilaterally. No audible rales rhonchi or wheezing was noted. CARDIOVASCULAR: There is a regular rate and rhythm without any murmurs gallops or rubs. ABDOMEN: Soft and nontender with normal bowel sounds. SKIN: Skin is clear with no lesions or rashes and otherwise unremarkable. NEUROLOGIC: Patient is alert and oriented x3. Cranial nerves II through XII are grossly intact. Motor and sensory are also intact. Normal speech, volume and content. Symmetrical smile. MUSCULOSKELETAL: Normal extremities with adequate strength and full range of motion. No lower extremity swelling or edema. No calf tenderness. LYMPHATICS: No significant lymphadenopathy is noted PSYCHIATRIC: Normal psychiatric evaluation. Limitations: no limitations Course Vital Signs 10/07/22 10/07/22 10/07/22 10:15 10:29 10:30 Temperature 97.9 F Pulse Rate 61 Respiratory 20 Rate Blood Pressure 133/77 O2 Sat by Pulse 96 97 96 Oximetry 10/07/22 10/07/22 10/07/22 10:40 10:50 11:00 Temperature Pulse Rate 60 58 L Respiratory 18 16 Rate Blood Pressure 157/88 O2 Sat by Pulse 96 96 Oximetry Medical Decision Making - Medical Decision Making EKG was interpreted by myself shows a sinus rhythm at 60 bpm GA interval 258 QRSs 154 Q-T intervals 4 7090 QTC is 479. Patient's EKG is compared to an old EKG and there are no acute changes or there are Q waves in the inferior leads Was pt. sent in by a medical professional or institution ([facility], [employer] MACH[employer], urgent care, hospital, or penitentiary...) When possible be specific @ -[No] Did you speak to anyone other than the patient for history (EMS, parent, family, police, friend...)? What history was obtained from this source @ -[No] Did you review nursing and triage notes (agree or disagree)? Why? @ -[I reviewed and agree with nursing and triage notes] Were old charts reviewed (outside hosp., previous admission, EMS record, old EKG, old radiological studies, urgent care reports/EKG's, penitentiary records)? Report findings @ -I reviewed prior laboratory work prior EKGs and prior radiological studies Differential Diagnosis (chest pain, altered mental status, abdominal pain women, abdominal pain men, vaginal bleeding, weakness, fever, dyspnea, syncope, headache, dizziness, GI bleed, back pain, seizure, CVA, palpatations, mental health, musculoskeletal)? @ -Differential Chest Pain: Stable Angina, Unstable Angina, STEMI, NSTEMI Aortic Dissection, Pneumothorax, Musculoskeletal, Esophageal Spasm GERD, Cholecystitis, Pancreatitis, Zoster, this is not meant to be an all-inclusive list. EKG interpreted by me (3pts min.). @ -[As above] X-rays interpreted by me (1pt min.). @ -Chest x-ray was interpreted by myself that showed no acute normalities. CT interpreted by me (1pt min.). @ -[None done] U/S interpreted by me (1pt. min.). @ -[None done] What testing was considered but not performed or refused? (CT, X-rays, U/S, labs)? Why? @ -[None] What meds were considered but not given or refused? Why? @ -[None] Did you discuss the management of the patient with other professionals (p [employer] i.e. , PA, MIRROR MACHINE FEEDER, lab, RT, psych nurse, social media job titles, lapping machine operator, teacher, credit products officer, shoe caser)? Give summary @ -[No] Was smoking cessation discussed for >3mins.? @ -[No] Was critical care preformed (if so, how long)? @ -35 minutes Were there social determinants of health that impacted care today? How? (Homelessness, low income, unemployed, alcoholism, drug addiction, transportation, low edu. Level, literacy, decrease access to med. care, long-term, rehab)? @ -[No] Was there de-escalation of care discussed even if they declined (Discuss DNR or withdrawal of care, Hospice)? DNR status @ -[No] What co-morbidities impacted this encounter? (DM, HTN, Smoking, COPD, CAD, Cancer, CVA, ARF, Chemo, Hep., AIDS, mental health diagnosis, sleep apnea, morbid obesity)? @ -Hypertension, CAD, high cholesterol all are getting worse and the prognosis for patient coming in with unstable angina Was patient admitted / discharged? Hospital course, mention meds given and route, prescriptions, significant lab abnormalities, going to OR and other pertinent info. @ -Patient had chest pain emergency department was given aspirin and Nitropaste. Patient also started on heparin because of his significant history in the significance of his clinical picture. I spoke with the [facility] agreed to admit the patient admitted the patient wrote admitting orders I consulted cardiology Undiagnosed new problem with uncertain prognosis? @ -[No] Drug Therapy requiring intensive monitoring for toxicity (Heparin, Nitro, Insulin, Cardizem)? @ -[No] Were any procedures done? @ -[No] Diagnosis/symptom? @ -Unstable angina Acute, or Chronic, or Acute on Chronic? @ -Acute Uncomplicated (without systemic symptoms) or Complicated (systemic symptoms)? @ -Complicated Side effects of treatment? @ -[No] Exacerbation, Progression, or Severe Exacerbation? @ -[No] Poses a threat to life or bodily function? How? (Chest pain, [place], MT, pneumonia, PE, COPD, DKA, ARF, appy, cholecystitis, CVA, Diverticulitis, Homicidal, Suici maddy, threat to staff... and all critical care pts) @ -Yes this could lead to poor perfusion and organ dysfunction - Lab Data Result diagrams: 10/07/22 10:40 10/07/22 10:40 Lab Results 10/07/22 10/07/22 10/07/22 Range/Units 10:40 10:40 10:40 WBC 9.2 (3.8-10.6) k/uL RBC 5.03 (4.30-5.90) m/uL Hgb 16.1 (13.0-17.5) gm/dL Hct 46.3 (39.0-53.0) % MCV 92.0 (80.0-100.0) fL MCH 31.9 (25.0-35.0) pg MCHC 34.7 (31.0-37.0) g/dL RDW 13.8 (11.5-15.5) % Plt Count 224 (150-450) k/uL MPV 7.7 Neutrophils % 59 % Lymphocytes % 25 % Monocytes % 6 % Eosinophils % 7 % Basophils % 1 % Neutrophils # 5.4 (1.3-7.7) k/uL Lymphocytes # 2.3 (1.0-4.8) k/uL Monocytes # 0.5 (0-1.0) k/uL Eosinophils # 0.7 (0-0.7) k/uL Basophils # 0.1 (0-0.2) k/uL PT 11.1 (9.0-12.0) sec INR 1.1 (<1.2) APTT 23.5 (22.0-30.0) sec Sodium 139 (137-145) mmol/L Potassium 4.3 (3.5-5.1) mmol/L Chloride 102 (98-107) mmol/L Carbon Dioxide 29 (22-30) mmol/L Anion Gap 8 mmol/L BUN 27 H (9-20) mg/dL Creatinine 1.28 H (0.66-1.25) mg/dL Est GFR (CKD-EPI)AfAm 64 (>60 ml/min/1.73 sqM) Est GFR (CKD-EPI)NonAf 56 (>60 ml/min/1.73 sqM) Glucose 141 H (74-99) mg/dL Calcium 9.6 (8.4-10.2) mg/dL Magnesium 1.9 (1.6-2.3) mg/dL Total Bilirubin 1.0 (0.2-1.3) mg/dL AST 40 (17-59) U/L ALT 47 (4-49) U/L Alkaline Phosphatase 57 (38-126) U/L Troponin I (0.000-0.034) ng/mL Total Protein 6.9 (6.3-8.2) g/dL Albumin 4.3 (3.5-5.0) g/dL 10/07/22 Range/Units 10:40 WBC (3.8-10.6) k/uL RBC (4.30-5.90) m/uL Hgb (13.0-17.5) gm/dL Hct (39.0-53.0) % MCV (80.0-100.0) fL MCH (25.0-35.0) pg MCHC (31.0-37.0) g/dL RDW (11.5-15.5) % Plt Count (150-450) k/uL MPV Neutrophils % % Lymphocytes % % Monocytes % % Eosinophils % % Basophils % % Neutrophils # (1.3-7.7) k/uL Lymphocytes # (1.0-4.8) k/uL Monocytes # (0-1.0) k/uL Eosinophils # (0-0.7) k/uL Basophils # (0-0.2) k/uL PT (9.0-12.0) sec INR (<1.2) APTT (22.0-30.0) sec Sodium (137-145) mmol/L Potassium (3.5-5.1) mmol/L Chloride (98-107) mmol/L Carbon Dioxide (22-30) mmol/L Anion Gap mmol/L BUN (9-20) mg/dL Creatinine (0.66-1.25) mg/dL Est GFR (CKD-EPI)AfAm (>60 ml/min/1.73 sqM) Est GFR (CKD-EPI)NonAf (>60 ml/min/1.73 sqM) Glucose (74-99) mg/dL Calcium (8.4-10.2) mg/dL Magnesium (1.6-2.3) mg/dL Total Bilirubin (0.2-1.3) mg/dL AST (17-59) U/L ALT (4-49) U/L Alkaline Phosphatase (38-126) U/L Troponin I <0.012 (0.000-0.034) ng/mL Total Protein (6.3-8.2) g/dL Albumin (3.5-5.0) g/dL Critical Care Time Critical Care Time: Yes Total Critical Care Time: 35 Disposition Clinical Impression: Unstable angina pectoris Disposition: ADMITTED IP TO THIS HOSP Is patient prescribed a controlled substance at d/c from ED?: No Referrals: Daya Boothe III, MD [Primary Care Provider] - 1-2 days Time of Disposition: 11:56
--- NOTE | 2022-10-07 11:02 | XR ---
EXAMINATION TYPE: XR chest 2V DATE OF EXAM: 10/07/2022 COMPARISON: 08/03/2020 HISTORY: Chest pain TECHNIQUE: Frontal and lateral views of the chest are obtained. FINDINGS: The lungs are clear of abnormal interstitial or airspace opacity. There is no pleural effusion or pneumothorax. The heart is mildly prominent in size but the pulmonary vasculature is not congested. The osseous structures are intact. IMPRESSION: 1. No acute cardiopulmonary disease. 2. Possible mild cardiomegaly.
[2022-10-07 11:08] LABS: Albumin 4.3 g/dL (3.5-5.0); Calcium 9.6 mg/dL (8.4-10.2); Magnesium 1.9 mg/dL (1.6-2.3); Potassium 4.3 mmol/L (3.5-5.1); Total Protein 6.9 g/dL (6.3-8.2)
[2022-10-07 11:18] LABS: Basophils # (A) 0.1 k/uL (0-0.2); Basophils % (A) 1 %; Eosinophils # (A) 0.7 k/uL (0-0.7); Eosinophils % (A) 7 %; HCT 46.3 % (39.0-53.0); HGB 16.1 gm/dL (13.0-17.5); Lymphocytes # (A) 2.3 k/uL (1.0-4.8); Lymphocytes % (A) 25 %; MCH 31.9 pg (25.0-35.0); MCHC 34.7 g/dL (31.0-37.0); Mean Platelet Volume 7.7; Monocytes # (A) 0.5 k/uL (0-1.0); Monocytes % (A) 6 %; Neutrophils # (A) 5.4 k/uL (1.3-7.7); Neutrophils % (A) 59 %; Platelet Count 224 k/uL (150-450); RBC 5.03 m/uL (4.30-5.90); RDW 13.8 % (11.5-15.5); WBC 9.2 k/uL (3.8-10.6)
[2022-10-07 11:20] LABS: INR 1.1 (<1.2)
[2022-10-07 11:21] LABS: Partial Thromboplastin Time 23.5 sec (22.0-30.0); Prothrombin Time 11.1 sec (9.0-12.0)
[2022-10-07] MEDS ORDERED: HEPARIN SODIUM 1,000 UN/ML (10ML VL) IV ONE (11:50)
[2022-10-07] MEDS ORDERED: NITROGLYCERIN SL TABS 0.4 MG TAB SUBLINGUAL PRN (12:05)
[2022-10-07] MEDS: HEPARIN SOD,PORK IN 0.45% NACL 25,000 UNIT in 0.45% NACL 1 250ML.BAG IV SCH (12:27)
[2022-10-07] MEDS ORDERED: ONDANSETRON 4 MG/2 ML VIAL IVP PRN (14:56)
[2022-10-07] MEDS ORDERED: NALOXONE 0.4 MG/ML 1 ML VIAL IVP PRN (14:56)
[2022-10-07] MEDS ORDERED: ACETAMINOPHEN TAB 325 MG TAB PO PRN (14:56)
--- NOTE | 2022-10-07 15:13 | P.HPIM ---
History of Present Illness H&P Date: 10/07/22 Chief Complaint: Chest pain 72-year-old gentleman with past medical history significant for coronary artery disease, hyperlipidemia, hypertension presented to the emergency department with complaints of chest pain. 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 She denies previously having similar presentation. He did complain of shortness of breath and diaphoresis associated with it however he denied abdominal pain or nausea. Patient states his chest pain has been similar to what he had previously when he had stents in his heart. Workup initiated in the ER included EKG which was negative any significant ST segment changes. CBC was obtained which was within normal limits. PT/INR within normal limits basic metabolic panel showed creatinine of 1.2. Chest x-ray was obtained which showed mild cardiomegaly. Patient had a negative troponin. Patient was started on IV heparin for unstable angina with consultation from cardiology Review of Systems All systems: negative Constitutional: Denies chills, Denies fever Ears, nose, mouth and throat: Denies headache, Denies sore throat Cardiovascular: Reports chest pain, Reports shortness of breath Respiratory: Denies cough Gastrointestinal: Denies abdominal pain, Denies diarrhea, Denies nausea, Denies vomiting Past Medical History Past Medical History: Coronary Artery Disease (CAD), Hyperlipidemia, Hypertension, Myocardial Infarction ([place]), Osteoarthritis (OA) Additional Past Medical History / Comment(s): 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, DDD,spinal stenosis, chronic back pain, pancreatitis 01-05-13, degenerative disc disease Last Myocardial Infarction Date:: 2016 History of Any Multi-Drug Resistant Organisms: None Reported Past Surgical History: Cholecystectomy, Heart Catheterization With Stent, Hernia Repair, Joint Replacement Additional Past Surgical History / Comment(s): BILAT CATARACTS REMOVED, south inguinal hernia repair 1995, umbilical hernia repair x2 pain clinic procedures, 08-26-15 south l3-4,l4-5 lumbar laminectomy and medial facetectomy, lt hip replacement Past Anesthesia/Blood Transfusion Reactions: No Reported Reaction Date of Last Stent Placement:: 2016 Past Psychological History: Anxiety Smoking Status: Former smoker, Never smoker Past Alcohol Use History: None Reported Past Drug Use History: None Reported - Past Family History Mother Family Medical History: Coronary Artery Disease (CAD) Additional Family Medical History / Comment(s): stents cabg Father Family Medical History: Coronary Artery Disease (CAD), Vascular Disorder Additional Family Medical History / Comment(s): cabg x2 Medications and Allergies Home Medications Medication Instructions Recorded Confirmed Type RX: Aspirin EC [Ecotrin Low Dose] 81 mg PO DAILY 07/29/18 10/07/22 History RX: Atorvastatin [Lipitor] 80 mg PO HS 07/29/18 10/07/22 History RX: Clopidogrel [Plavix] 75 mg PO DAILY 07/29/18 10/07/22 History RX: Fenofibrate [Lofibra] 160 mg PO DAILY 07/29/18 10/07/22 History RX: [place]-3 Fatty Acids/Fish Oil 2 cap PO DAILY 07/29/18 10/07/22 History [Fish Oil 1,000 mg Softgel] RX: PARoxetine [Paxil] 20 mg PO DAILY 07/29/18 10/07/22 History RX: hydroCHLOROthiazide 12.5 mg PO DAILY 07/29/18 10/07/22 History RX: Cyanocobalamin (Vitamin B-12) 1,000 mcg PO DAILY 08/02/18 10/07/22 History [Vitamin B-12] RX: Nitroglycerin 0.4 mg SL DIRECTED PRN 08/02/18 10/07/22 History RX: Metoprolol Tartrate [Lopressor] 50 mg PO BID 07/17/20 10/07/22 History Cholecalciferol [Vitamin D3 (25 25 mcg PO DAILY 10/07/22 10/07/22 History Mcg = 1000 Iu)] Losartan Potassium [Cozaar] 50 mg PO DAILY 10/07/22 10/07/22 History RX: Ascorbic Acid [Vitamin C] 500 mg PO DAILY 10/07/22 10/07/22 History Zinc Gluconate [Zinc] 50 mg PO DAILY 10/07/22 10/07/22 History Allergies Allergy/AdvReac Type Severity Reaction Status Date / Time No Known Allergies Allergy Verified 10/07/22 11:41 Physical Exam Vitals: Vital Signs Temp Pulse Resp BP Pulse Ox 10/07/22 13:37 89 19 125/80 95 10/07/22 11:00 58 L 16 96 10/07/22 10:50 157/88 10/07/22 10:40 60 18 96 10/07/22 10:30 96 10/07/22 10:29 97 10/07/22 10:15 97.9 F 61 20 133/77 96 Intake and Output 10/07/22 10/07/22 10/07/22 06:59 14:59 22:59 Other: Weight 116.12 kg PHYSICAL EXAMINATION: GENERAL: The patient is alert and oriented x3, not in any acute distress. Well developed, well nourished. HEENT: Pupils are round and equally reacting to light. EOMI. No scleral icterus. No conjunctival pallor. Normocephalic, atraumatic. No pharyngeal erythema. No thyromegaly. CARDIOVASCULAR: S1 and S2 present. No murmurs, rubs, or gallops. PULMONARY: Chest is clear to auscultation, no wheezing or crackles. ABDOMEN: Soft, nontender, nondistended, normoactive bowel sounds. No palpable organomegaly. MUSCULOSKELETAL: No joint swelling or deformity. EXTREMITIES: No cyanosis, clubbing, or pedal edema. NEUROLOGICAL: Gross neurological examination did not reveal any focal deficits. SKIN: No rashes. Results CBC & Chem 7: 10/07/22 10:40 10/07/22 10:40 Labs: Abnormal Lab Results - Last 24 Hours (Table) 10/07/22 Range/Units 10:40 BUN 27 H (9-20) mg/dL Creatinine 1.28 H (0.66-1.25) mg/dL Glucose 141 H (74-99) mg/dL Assessment and Plan (1) Unstable angina pectoris Narrative/Plan: * Assessment and plan * Chest pain with history of coronary artery disease and unstable angina * Essential hypertension * Dyslipidemia * Obesity In regards to coronary artery disease patient has a history of PCI, cardiology consulted, serial troponins ordered. Continue guidelines do recommend medical therapy. Continue to follow up on troponins sublingual nitroglycerin for chest pain, IV morphine as needed for chest pain. Continue patient on er nurse continue patient on metoprolol however dose decreased secondary to bradycardia In regards to history of hypertension continue current medical regimen including hydrochlorothiazide, losartan, metoprolol In regards to dyslipidemia continue patient on high intensity statin, continue fenofibrate Current Visit: Yes Status: Acute Code(s): I20.0 - UNSTABLE ANGINA SNOMED Code(s): 1939644
[2022-10-07] MEDS: NITROGLYCERIN OINT 1 INCH/GM PACKET TOPICAL SCH (20:33)
[2022-10-07] MEDS: METOPROLOL TARTRATE 25 MG TAB PO SCH (20:33)
[2022-10-07] MEDS: ATORVASTATIN 80 MG TAB PO SCH (20:33)
--- NOTE | 2022-10-07 23:23 | CONS ---
CONSULTATION CHIEF COMPLAINT: Chest pain. HISTORY OF PRESENT ILLNESS: Alexsander is a 72-year-old gentleman with history of coronary artery disease, status post prior multivessel angioplasty, hypertension, dyslipidemia, who presented to the hospital complaining of chest discomfort that started early this morning. Describes it as a precordial pressure of 4/10 in intensity, took the nitroglycerin with some improvement, came to the hospital where he has been diagnosed with unstable angina with heparin, nitrates and has felt much better. He has known CAD and has had prior stenting of the LAD and had intermediate disease involving the right coronary artery. He subsequently underwent a cardiac catheterization in 2018 that revealed a patent stent within the LAD and moderate in-stent restenosis within the right coronary artery that has been managed medically. He has done well over the last several years. He did not have further episodes of chest discomfort and he follows with Dr. Brian regularly. His EKG shows sinus rhythm with right bundle branch block and ST-T wave changes similar to his baseline EKG. Labs show that the first set of troponin is negative. Creatinine is 1.2, hemoglobin is 16.1. The patient's clinical presentation is consistent with unstable angina on optimal medical therapy. I advised him to undergo cardiac catheterization tomorrow for further evaluation. He had been explained of risks, benefits, and alternatives. PAST MEDICAL HISTORY: Significant for CAD status post multivessel angioplasty, hypertension, dyslipidemia. CURRENT MEDICATIONS: Include, 1. Lipitor 80 daily. 2. Aspirin. 3. Plavix. 4. Lopressor. 5. Cozaar. 6. Lofibra. ALLERGIES: No known drug allergies. FAMILY HISTORY: Negative for premature coronary artery disease. SOCIAL HISTORY: Negative for current smoking, EtOH abuse or drug abuse. REVIEW OF SYSTEMS: HEENT: Unremarkable. CARDIAC: As described above. RESPIRATORY: Negative. GI: Negative. : Negative. ALLERGY/IMMUNOLOGY: Negative. SKIN: Negative. MUSCULOSKELETAL: Negative. ENDOCRINE: Negative. DERM: Negative. CONSTITUTIONAL: Negative. ONCOLOGICAL: Negative. PETROLEUM INSPECTOR SUPERVISOR: Negative. Rest of the system review is not relevant. PHYSICAL EXAMINATION: GENERAL: Comfortable at rest. VITAL SIGNS: Stable. NECK: There is no jugular venous distention. Carotid upstroke is normal. There is no bruit. CHEST: Reveals good air entry bilaterally. HEART: Reveals first and second heart sounds. No gallop. No murmur. No rub. ABDOMEN: Soft, nontender. EXTREMITIES: Exam of extremities did not reveal any edema. Peripheral pulses are felt. DIAGNOSTIC DATA: EKG is as described. LABORATORY DATA: Labs are as described. ASSESSMENT: Unstable angina. PLAN: I will treat the patient with aspirin, nitrates, beta blockers, heparin. Obtain a 2D echo and schedule him for cardiac cath tomorrow morning. DAIJA / ANNIKA: [id number] /
[2022-10-08] MEDS: NITROGLYCERIN OINT 1 INCH/GM PACKET TOPICAL SCH ×4 (01:26→18:05)
[2022-10-08 08:15] LABS: African American GFR (CKD) 64 (>60 ml/min/1.73 sqM); Anion Gap 6 mmol/L; Blood Urea Nitrogen 26 mg/dL (9-20); Calcium 9.1 mg/dL (8.4-10.2); Carbon Dioxide 31 mmol/L (22-30); Chloride 102 mmol/L (98-107); Glucose 132 mg/dL (74-99); Non-African American GFR(CKD) 55 (>60 ml/min/1.73 sqM); Potassium 4.4 mmol/L (3.5-5.1); Sodium 139 mmol/L (137-145)
[2022-10-08 08:22] LABS: HCT 46.3 % (39.0-53.0); MCH 31.9 pg (25.0-35.0); MCHC 34.5 g/dL (31.0-37.0); MCV 92.4 fL (80.0-100.0); Mean Platelet Volume 7.6; Platelet Count 203 k/uL (150-450); RDW 13.8 % (11.5-15.5)
[2022-10-08] MEDS: CYANOCOBALAMIN 500 MCG TAB PO SCH (08:52)
[2022-10-08] MEDS: CHOLECALCIFEROL 25 MCG (1000 IU) TABLET PO SCH (08:52)
[2022-10-08] MEDS: ASPIRIN 325 MG TAB PO SCH (08:52)
[2022-10-08] MEDS: LOSARTAN 50 MG TAB PO SCH (08:52)
[2022-10-08] MEDS: FENOFIBRATE 160 MG TAB PO SCH (08:52)
[2022-10-08] MEDS: METOPROLOL TARTRATE 25 MG TAB PO SCH ×2 (08:52→20:25)
[2022-10-08] MEDS: CLOPIDOGREL 75 MG TAB PO SCH (08:52)
[2022-10-08] MEDS: hydroCHLOROthiazide 12.5 MG CAP PO SCH (08:52)
[2022-10-08] MEDS: PARoxetine 20 MG TAB PO SCH (08:54)
[2022-10-08] MEDS ORDERED: NON FORMULARY DRUG (Aspirin Ec 81 MG Tablet.Dr) PO SCH (09:00)
[2022-10-08] MEDS ORDERED: NITROGLYCERIN SL TABS 0.4 MG TAB SUBLINGUAL PRN (12:39)
[2022-10-08] MEDS ORDERED: ASPIRIN 325 MG TAB PO STA (12:39)
[2022-10-08] MEDS ORDERED: ATORVASTATIN 80 MG TAB PO STA (12:39)
--- NOTE | 2022-10-08 12:39 | P.PN ---
Subjective Progress Note Date: 10/08/22 Patient is seen resting comfortably in bed in no signs of acute distress. He denies increased shortness of breath or chest pain. Patient will undergo a cardiac catheterization tomorrow morning with Dr. Blake. Will continue with heparin drip. Patient will be nothing by mouth after midnight. Objective - Vital Signs Vital signs: Vital Signs Temp 98.1 F 10/08/22 07:00 Pulse 62 10/08/22 08:00 Resp 18 10/08/22 08:00 BP 125/58 10/08/22 07:00 Pulse Ox 93 L 10/08/22 08:00 FiO2 Intake & Output 10/07/22 10/08/22 10/08/22 18:59 06:59 18:59 Intake Total 234.671 Balance 234.671 Weight 116.12 kg Intake: Intake, IV Titration 234.671 Amount Heparin Sod,Pork in 0.45% 234.671 NaCl 25,000 unit In 0.45 % NaCl 1 250ml.bag @ 8.6 UNITS/KG/HR 9.986 mls/hr IV .Q24H [facility] Rx#: [id number] Other: Voiding Method Toilet Toilet # Voids 2 - Exam PHYSICAL EXAM: VITAL SIGNS: Reviewed. GENERAL: Well-developed in no acute distress. HEENT: Head is normocephalic. Pupils are equal, round. Sclerae anicteric. Mucous membranes of the mouth are moist. NECK: Supple. No JVD or thyromegaly RESPIRATORY: Respirations even and unlabored. Lungs diminished to auscultation bilaterally. CARDIO: Regular rate and rhythm. S1 and S2 heard. No murmur or gallops. EXTREMITIES: Normal range of motion. No clubbing or cyanosis. Peripheral pulses intact. Negative for bilateral lower extremity edema NEURO: Orientated to person, time, mood is appropriate - Labs CBC & Chem 7: 10/08/22 07:31 10/08/22 07:31 Labs: Abnormal Lab Results - Last 24 Hours (Table) 10/07/22 10/08/22 10/08/22 Range/Units 18:28 07:31 07:31 APTT 47.0 H 42.1 H (22.0-30.0) sec Carbon Dioxide 31 H (22-30) mmol/L BUN 26 H (9-20) mg/dL Creatinine 1.29 H (0.66-1.25) mg/dL Glucose 132 H (74-99) mg/dL Assessment and Plan Assessment: Unstable angina History of coronary artery disease with multiple stents Plan: Continue with heparin drip Patient is scheduled for cardiac catheterization with Dr. Blake tomorrow Obtain 2-D echocardiogram Further recommendations based on clinical course The above impression and plan of care have been discussed and directed by the signing physician. Christina Guerrero, nurse practitioner, acting as scribe for signing physician.
[2022-10-08] MEDS: HEPARIN SOD,PORK IN 0.45% NACL 25,000 UNIT in 0.45% NACL 1 250ML.BAG IV SCH (13:15)
[2022-10-08 14:57] LABS: Chol/HDL Ratio 2.07 Ratio; LDL Cholesterol,Calculated 23.2 mg/dL (0.0-131.0)
--- NOTE | 2022-10-08 14:58 | P.PN ---
Progress Note - Text Progress Note Date: 10/08/22 SUBJECTIVE : Patient seen and evaluated bedside alert and oriented 3 denies chest pain, on IV heparin denies blood in stool or urine REVIEW OF SYSTEMS: NEGATIVE EXCEPT FOR chest pain on admission which has resolved CONSTITUTIONAL: No fever, no malaise, no fatigue. HEENT: No recent visual problems or hearing problems. Denied any sore throat. CARDIOVASCULAR: No chest pain, orthopnea, PND, no palpitations, no syncope. PULMONARY: No shortness of breath, no cough, no hemoptysis. GASTROINTESTINAL: No diarrhea, no nausea, no vomiting, no abdominal pain. NEUROLOGICAL: No headaches, no weakness, no numbness. HEMATOLOGICAL: Denies any bleeding or petechiae. GENITOURINARY: Denies any burning micturition, frequency, or urgency. MUSCULOSKELETAL/RHEUMATOLOGICAL: Denies any joint pain, swelling, or any muscle pain. ENDOCRINE: Denies any polyuria or polydipsia. PHYSICAL EXAMINATION: GENERAL: The patient is alert and oriented x3, not in any acute distress. Well developed, well nourished. HEENT: Pupils are round and equally reacting to light. EOMI. No scleral icterus. No conjunctival pallor. Normocephalic, atraumatic. No pharyngeal erythema. No thyromegaly. CARDIOVASCULAR: S1 and S2 present. No murmurs, rubs, or gallops. PULMONARY: Chest is clear to auscultation, no wheezing or crackles. ABDOMEN: Soft, nontender, nondistended, normoactive bowel sounds. No palpable organomegaly. MUSCULOSKELETAL: No joint swelling or deformity. EXTREMITIES: No cyanosis, clubbing, or pedal edema. NEUROLOGICAL: Gross neurological examination did not reveal any focal deficits. SKIN: No rashes. ASSESMENT & PLAN * Chest pain with history of coronary artery disease and unstable angina * Essential hypertension * Dyslipidemia * Obesity In regards to coronary artery disease patient has a history of PCI, cardiology consulted, serial troponins NEGATIVE Continue guidelines recommend medical therapy. Plan for cardiac catheterization 10/09 Continue patient on monitoring and evaluation advisor continue patient on metoprolol however dose decreased secondary to bradycardia In regards to history of hypertension continue current medical regimen including hydrochlorothiazide, losartan, metoprolol In regards to dyslipidemia continue patient on high intensity statin, continue fenofibrate
[2022-10-08] MEDS ORDERED: HEPARIN SODIUM 1,000 UN/ML (10ML VL) MISCELLANE ONE (17:53)
[2022-10-08] MEDS: ATORVASTATIN 80 MG TAB PO SCH (20:25)
[2022-10-09] MEDS: NITROGLYCERIN OINT 1 INCH/GM PACKET TOPICAL SCH ×2 (05:13→12:02)
[2022-10-09 05:53] LABS: Glucose,Whole Blood 150 mg/dL (70-110)
[2022-10-09] MEDS ORDERED: HEPARIN SODIUM,PORCINE 2,500 UNIT in SODIUM CHLORIDE 0.9% 250 ML IRRIGATION PRN (07:00)
[2022-10-09] MEDS ORDERED: HEPARIN SODIUM,PORCINE 10,000 UNIT in SODIUM CHLORIDE 0.9% 1,000 ML IRRIGATION PRN (07:00)
[2022-10-09 07:06] LABS: Basophils % (A) 0 %; Eosinophils # (A) 0.7 k/uL (0-0.7); Eosinophils % (A) 6 %; HCT 44.4 % (39.0-53.0); HGB 15.8 gm/dL (13.0-17.5); Lymphocytes # (A) 3.1 k/uL (1.0-4.8); Lymphocytes % (A) 28 %; MCH 33.1 pg (25.0-35.0); MCHC 35.5 g/dL (31.0-37.0); MCV 93.2 fL (80.0-100.0); Mean Platelet Volume 7.5; Monocytes # (A) 0.8 k/uL (0-1.0); Monocytes % (A) 7 %; Neutrophils # (A) 5.9 k/uL (1.3-7.7); Neutrophils % (A) 54 %; Platelet Count 200 k/uL (150-450); RBC 4.76 m/uL (4.30-5.90); RDW 13.8 % (11.5-15.5)
[2022-10-09 07:34] LABS: African American GFR (CKD) 58 (>60 ml/min/1.73 sqM); Anion Gap 9 mmol/L; Blood Urea Nitrogen 24 mg/dL (9-20); Calcium 9.2 mg/dL (8.4-10.2); Carbon Dioxide 25 mmol/L (22-30); Chloride 104 mmol/L (98-107); Glucose 147 mg/dL (74-99); Non-African American GFR(CKD) 50 (>60 ml/min/1.73 sqM); Potassium 4.4 mmol/L (3.5-5.1); Sodium 138 mmol/L (137-145)
[2022-10-09] MEDS ORDERED: fentaNYL (PF) 50 MCG/ML 2 ML AMP ONE (07:43)
[2022-10-09] MEDS ORDERED: IV FLUID CONTINUATION 1,000 ML IV ONE (07:45)
[2022-10-09] MEDS ORDERED: LIDOCAINE 1% INJ 10MG/ML (5 ML VIAL-PF) SQ ONE (07:48)
[2022-10-09] MEDS ORDERED: MIDAZOLAM 2 MG/2 ML VIAL IV ONE (07:48)
[2022-10-09] MEDS ORDERED: fentaNYL (PF) 50 MCG/ML 2 ML AMP IV ONE (07:48)
[2022-10-09] MEDS ORDERED: VERAPAMIL SYRINGE (5 MG/10 ML) INTRAARTER ONE (07:50)
[2022-10-09] MEDS: HEPARIN SODIUM 1,000 UN/ML (10ML VL) IV ONE ×2 (08:17→08:30)
[2022-10-09] MEDS ORDERED: IOPAMIDOL-370 125ML BTL INJ ONE (08:56)
--- NOTE | 2022-10-09 08:59 | P.PCN ---
Description of Procedure: PROCEDURES PERFORMED: Right coronary angiography, iFR RCA INDICATION: Chest pain concerning for unstable angina PROCEDURE: After the risks, benefits and alternatives of the above mentioned procedure explained in detail with the patient, informed consent was obtained. Patient had been taken to the catheterization lab and prepped and draped in usual fashion and a 6Fr sheath had been placed. Given indeterminate RCA stenosis, the decision was made to perform iFR of the RCA. Initially a 6-Citizen [place] 0.75 guide was used however unable to cannulate the RCA. Next a 6-Citizen [place] FR5 guide was used engages RCA. A 0.014 pressure wire was advanced into the proximal RCA and normalized. The wire was then advanced 1 cm distal to the lesion. iFR was performed and was normal at 0.96. The wire was removed. The right radial sheath was removed and a TR band was placed with hemostasis achieved. The patient tolerated the procedure well. Patient was transported back to the post catheterization holding area in stable condition. Conscious Sedation: Patient was monitored under the direct supervision of myself for conscious sedation using Versed and fentanyl for a total duration of 16 minutes HEMODYNAMICS: Aorta: 106/46 SELECTIVE CORONARY ARTERIOGRAPHY: LEFT MAIN: Not imaged LEFT ANTERIOR DESCENDING CORONARY ARTERY: Not imaged LEFT CIRCUMFLEX CORONARY ARTERY: Not imaged RIGHT CORONARY ARTERY: The right coronary artery is a moderate caliber vessel which gives off a PDA and PLV branch and is the dominant vessel. There is 40- 50% proximal instent stenosis. FINAL IMPRESSION: 1. 40-50% proximal RCA instent stenosis with normal iFR 0.96 PLAN: 1. Aggressive risk factor modification per most recent ACC/AHA guidelines. 2. Continue with medical therapy for RCA given normal iFR
[2022-10-09] MEDS: ASPIRIN 325 MG TAB PO SCH (09:36)
[2022-10-09] MEDS: CLOPIDOGREL 75 MG TAB PO SCH (09:42)
[2022-10-09] MEDS: FENOFIBRATE 160 MG TAB PO SCH (09:42)
[2022-10-09] MEDS: PARoxetine 20 MG TAB PO SCH (09:42)
[2022-10-09] MEDS: LOSARTAN 50 MG TAB PO SCH (09:42)
[2022-10-09] MEDS: CYANOCOBALAMIN 500 MCG TAB PO SCH (09:42)
[2022-10-09] MEDS: CHOLECALCIFEROL 25 MCG (1000 IU) TABLET PO SCH (09:42)
[2022-10-09 10:42] VITALS: TEMP 97.4
[2022-10-09] MEDS: METOPROLOL TARTRATE 25 MG TAB PO SCH (11:42)
[2022-10-09] MEDS: hydroCHLOROthiazide 12.5 MG CAP PO SCH (11:42)
--- NOTE | 2022-10-09 13:54 | P.DS ---
Providers Date of admission: 10/07/22 12:11 Expected date of discharge: 10/09/22 Attending physician: Ricardo Holly Consults: 10/07/22 11:51 Consult Physician Routine Consulting Provider: Shahbaz Blake Consult Reason/Comments: chest pain, Do you want consulting provider notified?: Yes Primary care physician: Daya Boothe - Discharge Diagnosis(es) (1) Unstable angina pectoris Current Visit: Yes Status: Acute Hospital Course: * 72-year-old gentleman with past medical history significant for coronary artery disease, hyperlipidemia, hypertension presented to the emergency department with complaints of chest pain. * patient had midsternal chest pain that improved with nitroglycerin. He did complain of shortness of breath and diaphoresis associated with it however he denied abdominal pain or nausea. * Patient states his chest pain has been similar to what he had previously when he had stents in his heart. * Workup initiated in the ER included EKG which was negative any significant ST segment changes. CBC was obtained which was within normal limits. PT/INR within normal limits basic metabolic panel showed creatinine of 1.2. * Chest x-ray was obtained which showed mild cardiomegaly. Patient had a negative troponin. Patient was started on IV heparin for unstable angina with consultation from cardiology * Serial troponins were obtained which remained minimally elevated. Patient was treated with IV heparin * She underwent cardiac catheterization which showed nonocclusive coronary artery disease and medical management was recommended * Patient to continue aspirin, Lipitor, Plavix, fenofibrate * Echocardiogram completed outpatient follow-up with cardiology PHYSICAL EXAMINATION: GENERAL: The patient is alert and oriented x3, not in any acute distress. Well developed, well nourished. HEENT: Pupils are round and equally reacting to light. EOMI. No scleral icterus. No conjunctival pallor. Normocephalic, atraumatic. No pharyngeal erythema. No thyromegaly. CARDIOVASCULAR: S1 and S2 present. No murmurs, rubs, or gallops. PULMONARY: Chest is clear to auscultation, no wheezing or crackles. ABDOMEN: Soft, nontender, nondistended, normoactive bowel sounds. No palpable organomegaly. MUSCULOSKELETAL: No joint swelling or deformity. EXTREMITIES: Right radial access for cardiac catheterization NEUROLOGICAL: Gross neurological examination did not reveal any focal deficits. SKIN: No rashes. Assessment and plan * Chest pain with history of coronary artery disease and unstable angina * Essential hypertension * Dyslipidemia * Obesity * In regards to coronary artery disease patient has a history of PCI, cardiology consulted, serial troponins NEGATIVE * Continue guidelines recommend medical therapy. Status post cardiac catheterization which showed 40-50% proximal RCA in-stent stenosis * Continue patient on air sampling and monitoring continue patient on metoprolol * In regards to history of hypertension continue current medical regimen including hydrochlorothiazide, losartan, metoprolol * In regards to dyslipidemia continue patient on high intensity statin, continue fenofibrate * Echocardiogram completed an outpatient follow-up with cardiology Patient Condition at Discharge: Fair Plan - Discharge Summary Discharge Rx Participant: Yes New Discharge Prescriptions: Continue Clopidogrel [Plavix] 75 mg PO DAILY Atorvastatin [Lipitor] 80 mg PO HS hydroCHLOROthiazide 12.5 mg PO DAILY Fenofibrate [Lofibra] 160 mg PO DAILY PARoxetine [Paxil] 20 mg PO DAILY Aspirin EC [Ecotrin Low Dose] 81 mg PO DAILY [place]-3 Fatty Acids/Fish Oil [Fish Oil 1,000 mg Softgel] 2 cap PO DAILY Nitroglycerin 0.4 mg SL DIRECTED PRN PRN Reason: Chest Pain Cyanocobalamin (Vitamin B-12) [Vitamin B-12] 1,000 mcg PO DAILY Metoprolol Tartrate [Lopressor] 50 mg PO BID Zinc Gluconate [Zinc] 50 mg PO DAILY Ascorbic Acid [Vitamin C] 500 mg PO DAILY Cholecalciferol [Vitamin D3 (25 Mcg = 1000 Iu)] 25 mcg PO DAILY Losartan Potassium [Cozaar] 50 mg PO DAILY Discharge Medication List Aspirin EC [Ecotrin Low Dose] 81 mg PO DAILY 07/29/18 [History] Atorvastatin [Lipitor] 80 mg PO HS 07/29/18 [History] Clopidogrel [Plavix] 75 mg PO DAILY 07/29/18 [History] Fenofibrate [Lofibra] 160 mg PO DAILY 07/29/18 [History] [place]-3 Fatty Acids/Fish Oil [Fish Oil 1,000 mg Softgel] 2 cap PO DAILY 07/29/18 [History] PARoxetine [Paxil] 20 mg PO DAILY 07/29/18 [History] hydroCHLOROthiazide 12.5 mg PO DAILY 07/29/18 [History] Cyanocobalamin (Vitamin B-12) [Vitamin B-12] 1,000 mcg PO DAILY 08/02/18 [His tory] Nitroglycerin 0.4 mg SL DIRECTED PRN 08/02/18 [History] Metoprolol Tartrate [Lopressor] 50 mg PO BID 07/17/20 [History] Ascorbic Acid [Vitamin C] 500 mg PO DAILY 10/07/22 [History] Cholecalciferol [Vitamin D3 (25 Mcg = 1000 Iu)] 25 mcg PO DAILY 10/07/22 [History] Losartan Potassium [Cozaar] 50 mg PO DAILY 10/07/22 [History] Zinc Gluconate [Zinc] 50 mg PO DAILY 10/07/22 [History] Follow up Appointment(s)/Referral(s): Daya Boothe III, MD [Primary Care Provider] - 1-2 days Activity/Diet/Wound Care/Special Instructions: Continue cardiac diet post discharge Continue to monitor blood pressure and heart rate post discharge Follow-up with cardiology with outpatient follow-up. Cardiology to discuss echocardiogram outpatient Weight restriction to 5 pounds on the right arm for at least one week. Until seen by cardiology Discharge Disposition: HOME SELF-CARE
--- NOTE | 2022-10-09 14:40 | CA ---
Transthoracic Echo Report Name: Alexsander Zavala Age: 72 Gender: M : 1950 Exam Date: 10/09/2022 09:59 Exam Location: [facility] Ht (in): 69 Wt (lb): 256 Ordering Physician: Shahbaz Blake MD ([id number]) Attending/Referring Phys: Hayden GRAY Matrix Repairer Justa Laura RDCS Procedure CPT: Indications: Chest Pain Cardiac Hx: HX of stents Technical Quality: Fair Contrast 1: Total Dose (mL): Contrast 2: Total Dose (mL): MEASUREMENTS (Male / Female) Normal Values 2D ECHO LV Diastolic Diameter PLAX 5.0 cm 4.2 - 5.9 / 3.9 - 5.3 cm LV Systolic Diameter PLAX 3.4 cm IVS Diastolic Thickness 1.2 cm 0.6 - 1.0 / 0.6 - 0.9 cm LVPW Diastolic Thickness 1.3 cm 0.6 - 1.0 / 0.6 - 0.9 cm LV Relative Wall Thickness 0.5 RV Internal Dim ED PLAX 3.2 cm LA Systolic Diameter LX 3.5 cm 3.0 - 4.0 / 2.7 - 3.8 cm M-MODE Aortic Root Diameter MM 4.0 cm MV E Point Septal Separation 1.2 cm AV Cusp Separation MM 2.2 cm DOPPLER AV Peak Velocity 101.6 cm/s AV Peak Gradient 4.1 mmHg MV Area PHT 1.9 cm??? Mitral E Point Velocity 53.1 cm/s Mitral A Point Velocity 74.0 cm/s Mitral E to A Ratio 0.7 MV Deceleration Time 390.7 ms MV E' Velocity 4.9 cm/s Mitral E to MV E' Ratio 10.8 TR Peak Velocity 321.5 cm/s TR Peak Gradient 41.3 mmHg Right Ventricular Systolic Press 46.3 mmHg FINDINGS Left Ventricle Left ventricular ejection fraction is estimated at 55-60 %. Mildly increased septal wall thickness. Left ventricular cavity size normal. No obvious regional wall motion abnormalities. Right Ventricle Normal right ventricular size and function. Moderate pulmonary hypertension. Right Atrium Normal right atrial size. Left Atrium Normal left atrial size. Mitral Valve Mitral valve thickened. Mitral annular calcification. No mitral stenosis, regurgitation or prolapse. Aortic Valve Trileaflet aortic valve. Aortic valve sclerosis. Tricuspid Valve Structurally normal tricuspid valve. Mild tricuspid regurgitation. Pulmonic Valve Structurally normal pulmonic valve. No pulmonic regurgitation. Pericardium Normal pericardium. No pericardial effusion. Aorta Moderate aortic dilatation at the level of the sinuses of valsalva 40 mm CONCLUSIONS DDS Left radical ejection fraction greater than 50-55% Previewed by: Dr. Hong Larsen MD (Electronically Signed) Final Date: 09 October 2022 14:39
[2022-10-09 14:41] VITALS: BP 115/69; PULSE 72; RESP 18
== END 2022-10-09 15:48 | disposition home or self-care (01) ==
LOC: EC 10:13 → 6NMEDSUR 12:11
PROVIDERS: ADMIT Hospitalist; ATTEND Hospitalist
DX: I20.0 Unstable angina (principal); I10 Essential (primary) hypertension; E78.00 Pure hypercholesterolemia, unspecified; I25.10 Atherosclerotic heart disease of native coronary artery without angina pectoris; Z95.5 Presence of coronary angioplasty implant and graft; I25.2 Old myocardial infarction; E78.5 Hyperlipidemia, unspecified; M19.90 Unspecified osteoarthritis, unspecified site; R43.8 Other disturbances of smell and taste; G89.29 Other chronic pain; M54.9 Dorsalgia, unspecified; Z90.49 Acquired absence of other specified parts of digestive tract; Z87.820 Personal history of traumatic brain injury; Z98.890 Other specified postprocedural states; Z96.642 Presence of left artificial hip joint; Z82.49 Family history of ischemic heart disease and other diseases of the circulatory system; Z79.02 Long term (current) use of antithrombotics/antiplatelets; Z79.82 Long term (current) use of aspirin; Z79.899 Other long term (current) drug therapy
CPT/HCPCS: 96376 ×2; 96366 ×3; 96365; 99291; 36415; 94760; 93005; 93306; 93458; 93799; 80061; 80053; 80048 ×2; 83735; 84484; 85025 ×2; 85027; 85610; 85730 ×2; 71046; G0378 ×3; C1769 ×2; C1894; C1887 ×2; J2250; J2001; J3010; J1644 ×5; Q9967

== ENCOUNTER 2023-04-05 13:50 | Emergency (ER) | payer MEDICARE ==
[2023-04-05] MEDS ORDERED: KETOROLAC 15 MG/ML 1 ML VIAL IVP STA (15:31)
[2023-04-05] MEDS ORDERED: LIDOCAINE 5% PATCH TOPICAL STA (15:32)
--- NOTE | 2023-04-05 15:33 | ED ---
General Adult HPI - General Chief complaint: Abdominal Pain Stated complaint: pain lower back Time Seen by Provider: 04/05/23 14:55 Source: patient, RN notes reviewed Mode of arrival: ambulatory Limitations: no limitations - History of Present Illness Initial comments: 72-year-old male presents emergency department chief complaint of right-sided low back pain that started last night. He states that this pain is right above his pelvic bone and radiates to the buttock and right thigh. He states the pain is worse with movement. Denies any new trauma, saddle anesthesia, Loss of Bowel or Bladder Function, Fever, Chills. Denies urinary frequency, dysuria, hematuria. He admits to lifting weights in the gym recently. - Related Data Home Medications Medication Instructions Recorded Confirmed Aspirin EC [Ecotrin Low Dose] 81 mg PO DAILY 07/29/18 04/05/23 Atorvastatin [Lipitor] 80 mg PO HS 07/29/18 04/05/23 Clopidogrel [Plavix] 75 mg PO DAILY 07/29/18 04/05/23 Fenofibrate [Lofibra] 160 mg PO DAILY 07/29/18 04/05/23 [place]-3 Fatty Acids/Fish Oil [Fish 2 cap PO DAILY 07/29/18 04/05/23 Oil 1,000 mg Softgel] PARoxetine [Paxil] 20 mg PO DAILY 07/29/18 04/05/23 hydroCHLOROthiazide 12.5 mg PO DAILY 07/29/18 04/05/23 Cyanocobalamin (Vitamin B-12) 1,000 mcg PO DAILY 08/02/18 04/05/23 [Vitamin B-12] Nitroglycerin 0.4 mg SL DIRECTED PRN 08/02/18 04/05/23 Metoprolol Tartrate [Lopressor] 50 mg PO BID 07/17/20 04/05/23 Ascorbic Acid [Vitamin C] 1,000 mg PO DAILY 10/07/22 04/05/23 Losartan Potassium [Cozaar] 50 mg PO DAILY 10/07/22 04/05/23 Zinc Gluconate [Zinc] 50 mg PO BID 10/07/22 04/05/23 Allergies Allergy/AdvReac Type Severity Reaction Status Date / Time No Known Allergies Allergy Verified 04/05/23 18:04 Review of Systems ROS Statement: Those systems with pertinent positive or pertinent negative responses have been documented in the HPI. ROS Other: All systems not noted in ROS Statement are negative. 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, DDD,spinal stenosis, chronic back pain, pancreatitis 01-05-13, degenerative disc disease Last Myocardial Infarction Date:: 2016 History of Any Multi-Drug Resistant Organisms: None Reported Past Surgical History: Cholecystectomy, Heart Catheterization With Stent, Hernia Repair, Joint Replacement Additional Past Surgical History / Comment(s): BILAT CATARACTS, south inguinal hernia repair 1995, umbilical hernia repair x2 pain clinic procedures, 08-26-15 south l3-4,l4-5 lumbar laminectomy and medial facetectomy, lt hip replacement Past Anesthesia/Blood Transfusion Reactions: No Reported Reaction Date of Last Stent Placement:: 2016 Past Psychological History: Anxiety Smoking Status: Former smoker Past Alcohol Use History: Rare Past Drug Use History: None Reported - Past Family History Mother Family Medical History: Coronary Artery Disease (CAD) Additional Family Medical History / Comment(s): stents cabg x2 Father Family Medical History: Coronary Artery Disease (CAD), Vascular Disorder Additional Family Medical History / Comment(s): cabg General Exam Limitations: no limitations General appearance: alert, in no apparent distress Course Vital Signs 04/05/23 04/05/23 04/05/23 14:07 16:06 18:06 Temperature 98.0 F 98.2 F Pulse Rate 54 L 56 L 52 L Respiratory 19 18 18 Rate Blood Pressure 170/79 166/80 147/81 O2 Sat by Pulse 96 95 96 Oximetry Medical Decision Making - Medical Decision Making Was pt. sent in by a medical professional or institution (, PA, COLLECTION DEVELOPMENT LIBRARIAN, urgent care, hospital, or custodial...) When possible be specific @ -No Did you speak to anyone other than the patient for history (EMS, parent, family, police, friend...)? What history was obtained from this source @ -No Did you review nursing and triage notes (agree or disagree)? Why? @ -I reviewed and agree with nursing and triage notes Were old charts reviewed (outside hosp., previous admission, EMS record, old EKG, old radiological studies, urgent care reports/EKG's, custodial records)? Report findings @ -No old charts were reviewed Differential Diagnosis (chest pain, altered mental status, abdominal pain women, abdominal pain men, vaginal bleeding, weakness, fever, dyspnea, syncope, headache, dizziness, GI bleed, back pain, seizure, CVA, palpatations, mental health, musculoskeletal)? @ -Differential Back Pain: Strain, zoster, cauda equina syndrome, epidural abscess, vertebral o steomyelitis, discitis, fracture, subluxation, disc herniation, DJD, spinal stenosis, dissection, AAA, pancreatitis, peptic ulcer disease, pyelonephritis, kidney stone, this is not meant to be an all-inclusive list. EKG interpreted by me (3pts min.). @ -none X-rays interpreted by me (1pt min.). @ -None done CT interpreted by me (1pt min.). @ -None done U/S interpreted by me (1pt. min.). @ -None done What testing was considered but not performed or refused? (CT, X-rays, U/S, labs)? Why? @ -None What meds were considered but not given or refused? Why? @ -None Did you discuss the management of the patient with other professionals (professionals i.e. , PA, COLLECTION DEVELOPMENT LIBRARIAN, lab, RT, psych nurse, director of social services, balloon dipper, teacher, highway patrol officer, housing case manager)? Give summary @ -No Was smoking cessation discussed for >3mins.? @ -No Was critical care preformed (if so, how long)? @ -No Were there social determinants of health that impacted care today? How? (Homelessness, low income, unemployed, alcoholism, drug addiction, transportation, low edu. Level, literacy, decrease access to med. care, detention, rehab)? @ -No Was there de-escalation of care discussed even if they declined (Discuss DNR or withdrawal of care, Hospice)? DNR status @ -No What co-morbidities impacted this encounter? (DM, HTN, Smoking, COPD, CAD, Cancer, CVA, ARF, Chemo, Hep., AIDS, mental health diagnosis, sleep apnea, morbid obesity)? @ -None Was patient admitted / discharged? Hospital course, mention meds given and route, prescriptions, significant lab abnormalities, going to OR and other pertinent info. @ -Discharged. Patient presented to the emergency department for chief complaint of right-sided low back pain radiating to his right thigh. He denies fever, chills, loss of bowel or bladder function, saddle anesthesia. Denies hem aturia, urinary frequency, dysuria. Laboratory studies obtained which were essentially unremarkable. UA negative for blood, nitrite, leukocyte esterase. Patient given toradol which improved his symptoms. Patient advised of findings and struck return precautions discussed. Patient stable at discharge. Case discussed with Dr. Mckeon. Undiagnosed new problem with uncertain prognosis? @ -No Drug Therapy requiring intensive monitoring for toxicity (Heparin, Nitro, Insulin, Cardizem)? @ -No Were any procedures done? @ -No Diagnosis/symptom? @ -Low back pain Acute, or Chronic, or Acute on Chronic? @ -Acute Uncomplicated (without systemic symptoms) or Complicated (systemic symptoms)? @ -uncomplicated Side effects of treatment? @ -No Exacerbation, Progression, or Severe Exacerbation? @ -No Poses a threat to life or bodily function? How? (Chest pain, [place], [place], pneumonia, PE, COPD, DKA, ARF, appy, cholecystitis, CVA, Diverticulitis, Homicidal, Suicidal, threat to staff... and all critical care pts) @ -No - Lab Data Result diagrams: 04/05/23 15:28 04/05/23 15:28 Lab Results 04/05/23 04/05/23 04/05/23 Range/Units 15:28 15:28 16:12 WBC 11.1 H (3.8-10.6) k/uL RBC 4.82 (4.30-5.90) m/uL Hgb 15.7 (13.0-17.5) gm/dL Hct 45.9 (39.0-53.0) % MCV 95.3 (80.0-100.0) fL MCH 32.6 (25.0-35.0) pg MCHC 34.2 (31.0-37.0) g/dL RDW 13.4 (11.5-15.5) % Plt Count 247 (150-450) k/uL MPV 7.4 Neutrophils % 70 % Lymphocytes % 18 % Monocytes % 7 % Eosinophils % 4 % Basophils % 0 % Neutrophils # 7.7 (1.3-7.7) k/uL Lymphocytes # 2.0 (1.0-4.8) k/uL Monocytes # 0.7 (0-1.0) k/uL Eosinophils # 0.4 (0-0.7) k/uL Basophils # 0.1 (0-0.2) k/uL Sodium 141 (137-145) mmol/L Potassium 4.2 (3.5-5.1) mmol/L Chloride 103 (98-107) mmol/L Carbon Dioxide 29 (22-30) mmol/L Anion Gap 9 mmol/L BUN 20 (9-20) mg/dL Creatinine 1.20 (0.66-1.25) mg/dL Est GFR (CKD-EPI)AfAm 70 (>60 ml/min/1.73 sqM) Est GFR (CKD-EPI)NonAf 60 (>60 ml/min/1.73 sqM) Glucose 126 H (74-99) mg/dL Calcium 9.7 (8.4-10.2) mg/dL Total Bilirubin 0.8 (0.2-1.3) mg/dL AST 35 (17-59) U/L ALT 34 (4-49) U/L Alkaline Phosphatase 53 (38-126) U/L Total Protein 7.1 (6.3-8.2) g/dL Albumin 4.4 (3.5-5.0) g/dL Amylase 56 (30-110) U/L Lipase 153 (23-300) U/L Urine Color Light Yellow Urine Appearance Clear (Clear) Urine pH 6.0 (5.0-8.0) Ur Specific Patten 1.025 (1.001-1.035) Urine Protein Negative (Negative) Urine Glucose (UA) Negative (Negative) Urine Ketones Negative (Negative) Urine Blood Negative (Negative) Urine Nitrite Negative (Negative) Urine Bilirubin Negative (Negative) Urine Urobilinogen <2.0 (<2.0) mg/dL Ur Leukocyte Esterase Negative (Negative) Disposition Clinical Impression: Low back pain Disposition: HOME SELF-CARE Condition: Stable Is patient prescribed a controlled substance at d/c from ED?: No Referrals: Nonstaff,Physician [REFERRING] - 1-2 days
[2023-04-05 16:07] LABS: Basophils # (A) 0.1 k/uL (0-0.2); Basophils % (A) 0 %; Eosinophils # (A) 0.4 k/uL (0-0.7); Eosinophils % (A) 4 %; HCT 45.9 % (39.0-53.0); HGB 15.7 gm/dL (13.0-17.5); Lymphocytes % (A) 18 %; MCH 32.6 pg (25.0-35.0); MCHC 34.2 g/dL (31.0-37.0); MCV 95.3 fL (80.0-100.0); Mean Platelet Volume 7.4; Monocytes # (A) 0.7 k/uL (0-1.0); Monocytes % (A) 7 %; Neutrophils # (A) 7.7 k/uL (1.3-7.7); Neutrophils % (A) 70 %; Platelet Count 247 k/uL (150-450); RBC 4.82 m/uL (4.30-5.90); RDW 13.4 % (11.5-15.5); WBC 11.1 k/uL (3.8-10.6)
[2023-04-05 16:13] VITALS: RESP 18
[2023-04-05 16:17] LABS: ALT 34 U/L (4-49); AST 35 U/L (17-59); African American GFR (CKD) 70 (>60 ml/min/1.73 sqM); Albumin 4.4 g/dL (3.5-5.0); Alkaline Phosphatase 53 U/L (38-126); Amylase 56 U/L (30-110); Anion Gap 9 mmol/L; Blood Urea Nitrogen 20 mg/dL (9-20); Calcium 9.7 mg/dL (8.4-10.2); Carbon Dioxide 29 mmol/L (22-30); Chloride 103 mmol/L (98-107); Glucose 126 mg/dL (74-99); Lipase 153 U/L (23-300); Non-African American GFR(CKD) 60 (>60 ml/min/1.73 sqM); Potassium 4.2 mmol/L (3.5-5.1); Sodium 141 mmol/L (137-145); Total Bilirubin 0.8 mg/dL (0.2-1.3); Total Protein 7.1 g/dL (6.3-8.2)
[2023-04-05 16:25] LABS: Appearance,Urine Clear (Clear); Bilirubin,Urine Negative (Negative); Blood,Urine Negative (Negative); Color,Urine Light Yellow; Glucose,Urine (UA) Negative (Negative); Ketones,Urine Negative (Negative); Leukocyte Esterase,Urine Negative (Negative); Nitrite,Urine Negative (Negative); Protein,Urine Negative (Negative); Specific Gravity,Urine 1.025 (1.001-1.035); Urobilinogen,Urine <2.0 mg/dL (<2.0)
[2023-04-05 18:14] VITALS: BP 147/81; PULSE 52; TEMP 98.2
== END 2023-04-05 18:18 | disposition home or self-care (01) ==
LOC: EC 13:50
DX: M54.9 Dorsalgia, unspecified (principal); I25.10 Atherosclerotic heart disease of native coronary artery without angina pectoris; E78.5 Hyperlipidemia, unspecified; I10 Essential (primary) hypertension; I25.2 Old myocardial infarction; M19.90 Unspecified osteoarthritis, unspecified site; F41.9 Anxiety disorder, unspecified; Z87.891 Personal history of nicotine dependence; Z79.82 Long term (current) use of aspirin; Z79.01 Long term (current) use of anticoagulants; Z79.1 Long term (current) use of non-steroidal anti-inflammatories (NSAID); Z79.899 Other long term (current) drug therapy; Z79.02 Long term (current) use of antithrombotics/antiplatelets; Z90.49 Acquired absence of other specified parts of digestive tract
CPT/HCPCS: 36415; 80053; 82150; 83690; 85025; 81003; 99284; 96374; J1885

== ENCOUNTER 2023-04-07 07:58 | Emergency (ER) | payer MEDICARE ==
[2023-04-07 08:12] VITALS: TEMP 98.2
[2023-04-07] MEDS ORDERED: LIDOCAINE 5% PATCH TOPICAL ONE (08:13)
[2023-04-07] MEDS ORDERED: DEXAMETHASONE SOD PHOSPHATE 10 MG/ML 1 ML VIAL IVP STA (08:15)
[2023-04-07] MEDS ORDERED: ORPHENADRINE 30 MG/ML 2 ML VIAL IVP STA (08:15)
[2023-04-07] MEDS ORDERED: KETOROLAC 15 MG/ML 1 ML VIAL IVP STA (08:15)
--- NOTE | 2023-04-07 08:33 | ED ---
Back Pain HPI - General Chief Complaint: Back Pain/Injury Stated Complaint: Back Pain Time Seen by Provider: 04/07/23 08:11 Source: patient, RN notes reviewed Mode of arrival: wheelchair Limitations: no limitations - History of Present Illness Initial Comments: This is a 72-year-old male who presents to the emergency department for right lower back pain. He was evaluated here 2 days ago for the same complaint. The pain had started a day prior to that. The pain is on the top of the right buttocks area, and starts to wrap around to the front of the thigh. Believes that this is following the sciatic nerve distribution. Denies any injuries, but he has been lifting a lot of weights recently. Denies ever having problems like this in the past. His symptoms were well controlled with Toradol in the emergency department 2 days ago, however since going home, his symptoms have only gotten worse. Denies any loss of bowel/bladder control or saddle anesthesia. Denies any fevers, chills, sore throat, cough, dyspnea, chest pain, palpitations, abdominal pain, nausea, vomiting, diarrhea, or headaches. MD Complaint: back pain Onset/Timin -: days(s) - Related Data Home Medications Medication Instructions Recorded Confirmed Aspirin EC [Ecotrin Low Dose] 81 mg PO DAILY 07/29/18 04/05/23 Atorvastatin [Lipitor] 80 mg PO HS 07/29/18 04/05/23 Clopidogrel [Plavix] 75 mg PO DAILY 07/29/18 04/05/23 Fenofibrate [Lofibra] 160 mg PO DAILY 07/29/18 04/05/23 [place]-3 Fatty Acids/Fish Oil [Fish 2 cap PO DAILY 07/29/18 04/05/23 Oil 1,000 mg Softgel] PARoxetine [Paxil] 20 mg PO DAILY 07/29/18 04/05/23 hydroCHLOROthiazide 12.5 mg PO DAILY 07/29/18 04/05/23 Cyanocobalamin (Vitamin B-12) 1,000 mcg PO DAILY 08/02/18 04/05/23 [Vitamin B-12] Nitroglycerin 0.4 mg SL DIRECTED PRN 08/02/18 04/05/23 Metoprolol Tartrate [Lopressor] 50 mg PO BID 07/17/20 04/05/23 Ascorbic Acid [Vitamin C] 1,000 mg PO DAILY 10/07/22 04/05/23 Losartan Potassium [Cozaar] 50 mg PO DAILY 10/07/22 04/05/23 Zinc Gluconate [Zinc] 50 mg PO BID 10/07/22 04/05/23 Previous Rx's Medication Instructions Recorded methocarbamoL [Robaxin-750] 1,500 mg PO TID PRN #30 tab 04/07/23 predniSONE 50 mg PO DAILY 5 Days #5 tab 04/07/23 Allergies Allergy/AdvReac Type Severity Reaction Status Date / Time No Known Allergies Allergy Verified 04/07/23 08:09 Review of Systems ROS Statement: Those systems with pertinent positive or pertinent negative responses have been documented in the HPI. ROS Other: All systems not noted in ROS Statement are negative. 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, DDD,spinal stenosis, chronic back pain, pancreatitis 01-05-13, degenerative disc disease Last Myocardial Infarction Date:: 2016 History of Any Multi-Drug Resistant Organisms: None Reported Past Surgical History: Cholecystectomy, Heart Catheterization With Stent, Hernia Repair, Joint Replacement Additional Past Surgical History / Comment(s): BILAT CATARACTS, south inguinal hernia repair 1995, umbilical hernia repair x2 pain clinic procedures, 08-26-15 south l3-4,l4-5 lumbar laminectomy and medial facetectomy, lt hip replacement Past Anesthesia/Blood Transfusion Reactions: No Reported Reaction Date of Last Stent Placement:: 2016 Past Psychological History: Anxiety Smoking Status: Former smoker Past Alcohol Use History: Rare Past Drug Use History: None Reported - Past Family History Mother Family Medical History: Coronary Artery Disease (CAD) Additional Family Medical History / Comment(s): stents cabg x2 Father Family Medical History: Coronary Artery Disease (CAD), Vascular Disorder Additional Family Medical History / Comment(s): cabg General Exam Limitations: no limitations General appearance: alert, in distress Head exam: Present: atraumatic, normocephalic, normal inspection Respiratory exam: Present: normal lung sounds bilaterally. Absent: respiratory distress, wheezes, rales, rhonchi, stridor Cardiovascular Exam: Present: regular rate, normal rhythm, normal heart sounds. Absent: systolic murmur, diastolic murmur, rubs, gallop, clicks Back exam: Present: tenderness (Right lower lumbar spine) Neurological exam: Present: alert, oriented X3, CN II-XII intact Psychiatric exam: Present: normal affect, normal mood Skin exam: Present: warm, dry, intact, normal color. Absent: rash Course Vital Signs 04/07/23 04/07/23 04/07/23 08:07 10:01 11:54 Temperature 98.2 F 98.2 F Pulse Rate 58 L 56 L 56 L Respiratory 20 18 18 Rate Blood Pressure 198/91 162/82 146/75 O2 Sat by Pulse 99 97 98 Oximetry Medical Decision Making - Medical Decision Making This is a 72-year-old male who presents to the emergency department for back pain. Was pt. sent in by a medical professional or institution? @ -No Did you speak to anyone other than the patient for history? @ -No Did you review nursing and triage notes? @ -Yes, and I agree, it is accurate with regards to the patient's symptoms. Were old charts reviewed? @ -Urinalysis from 04/05/23, which was negative for signs of infection. Differential Diagnosis? @ -Differential Back Pain: Strain, zoster, cauda equina syndrome, epidural abscess, vertebral osteomyelitis, discitis, fracture, subluxation, disc herniation, DJD, spinal stenosis, dissection, AAA, pancreatitis, peptic ulcer disease, pyelonephritis, kidney stone, this is not meant to be an all-inclusive list. EKG interpreted by me (3pts min.)? @ -Not obtained X-rays interpreted by me (1pt min.)? @ -XR of the lumbar spine and sacrum obtained. My interpretation identifies no acute fractures. CT interpreted by me (1pt min.)? @ -Not obtained U/S interpreted by me (1pt. min.)? @ -Not obtained What testing was considered but not performed? (CT, X-rays, U/S, labs)? Why? @ -None What meds were considered but not given? Why? @ -None Did you discuss the management of the patient with other professionals? @ -No Did you reconcile home meds? @ -No Was smoking cessation discussed for >3mins.? @ -No Was critical care preformed (if so, how long)? @ -No Were there social determinants of health that impacted care today? How? (Homelessness, low income, unemployed, alcoholism, drug addiction, transportation, low edu. Level, literacy, decrease access to med. care, prison, rehab)? @ -No Was there de-escalation of care discussed even if they declined? (Discuss DNR or withdrawal of care, Hospice)? @ -No What co-morbidities impacted this encounter? (DM, HTN, Smoking, COPD, CAD, Cancer, CVA, Hep., AIDS, mental health diagnosis, sleep apnea, morbid obesity)? @ -Osteoarthritis, DDD Was patient admitted / discharged? @ -Discharged. X-ray of the lumbar spine, sacrum, and coccyx obtained revealing multilevel degenerative changes without acute process. Patient is not exhibiting any red flag signs or symptoms, such as loss of bowel/bladder control or saddle anesthesia. Symptoms most likely related to a sciatica or lumbar radiculopathy. His pain was well controlled in the emergency department. Prescriptions for prednisone and Robaxin provided with dosing instructions reviewed. He is advised to follow-up with orthopedics and his PCP for further evaluation of ongoing symptoms. Undiagnosed new problem with uncertain prognosis? @ -None Drug Therapy requiring intensive monitoring for toxicity (Heparin, Nitro, Insulin, Cardizem)? @ -None Were any procedures done? @ -None Diagnosis/symptom? @ -Right sided sciatica Acute, or Chronic, or Acute on Chronic? @ -Acute Uncomplicated (without systemic symptoms) or Complicated (systemic symptoms)? @ -Uncomplicated Side effects of treatment? @ -None Exacerbation, Progression, or Severe Exacerbation] @ -Not applicable Poses a threat to life or bodily function? @ -Yes, the pain is impacting his ability to function. Return precautions reviewed in depth, the patient is instructed to return to the emergency department with any new, worsening, or concerning symptoms. Patient verbalized understanding. This case was discussed in detail with the attending ED physician, Dr. Cueto. Presentation, findings, and treatment plan discussed in detail as well. - Radiology Data Radiology results: report reviewed, image reviewed Disposition Clinical Impression: Sciatica, right side Disposition: HOME SELF-CARE Instructions (If sedation given, give patient instructions): Sciatica (ED), Lumbar Radiculopathy (ED) Additional Instructions: Return to the emergency department with any new, worsening, or concerning symptoms. Take the prednisone daily for 5 days. You can take the Robaxin as 1- 2 tablets up to 3-4 times daily. You can take the [place] up to every 6 hours as needed for pain relief. Be aware that both Robaxin and [place] may make you drowsy and you should avoid driving or operating machinery when taking them. Follow up with Dr. Leon activity specialist in Dr. Ospina's office for further evaluation. Follow up with your primary care provider in 1-2 days. Prescriptions: predniSONE 50 mg PO DAILY 5 Days #5 tab methocarbamoL [Robaxin-750] 1,500 mg PO TID PRN #30 tab PRN Reason: Pain Is patient prescribed a controlled substance at d/c from ED?: No Referrals: None,Stated [Primary Care Provider] - 1-2 days
[2023-04-07 10:03] VITALS: PULSE 56; RESP 18
[2023-04-07] MEDS ORDERED: HYDROmorphone 1 MG/ML 1 ML SYRINGE IVP STA (10:24)
--- NOTE | 2023-04-07 10:44 | XR ---
EXAMINATION TYPE: XR sacrum coccyx DATE OF EXAM: 04/07/2023 8:54 AM CLINICAL INDICATION:Male, 72 years old with history of Right sided back pain; [facility] COMPARISON: None TECHNIQUE: The sacrum and coccyx was examined in frontal and lateral projections. FINDINGS: No evidence of acute fracture, dislocation, or destructive bony lesion in the limits of mikel in film examination. Degenerative changes of the SI joints and lower lumbar spine. Partially seen lef t total hip arthroplasty. Grossly unremarkable soft tissues. Several radiodensities seen over the pelvis could be related to he rniorrhaphy. If clinical concern persists, CT or MRI may be obtained as indicated for further evaluation. IMPRESSION: 1. No acute radiographic abnormality of the sacrum/coccyx. 2. Degenerative changes as above.
--- NOTE | 2023-04-07 10:52 | XR ---
EXAMINATION TYPE: XR lumbar spine 2 or 3V DATE OF EXAM: 04/07/2023 8:54 AM CLINICAL INDICATION:Male, 72 years old with history of Right sided back pain; [facility] COMPARISON: MR lumbar spine 12/12/2018 TECHNIQUE: XR lumbar spine 2 or 3V - FINDINGS: Five nonrib-bearing lumbar type vertebral bodies appear present. Osseous mineralization reny ears appropriate. No destructive bony lesion is seen. There is moderate narrowing of the intervertebr al disc spaces greatest at L2-L3 and L4-L5 with osteophyte formation consistent with degenerative dis c disease. Mild to moderate facet arthrosis throughout, greatest L4-L5 and L5-S1. Slight retrolisthes is of L2 on L3, likely degenerative. There is evidence of previous L3-L5 laminectomy and removal of s pinous processes. There is mild loss of height along the superior endplate of L1 which appears similar to prior MRI and is likely nonacute. Visualized bowel gas pattern is grossly unremarkable. IMPRESSION: 1. Mild loss of height along the superior endplate of L1, similar to prior MRI, likely nonacute. 2. No definite acute abnormality otherwise demonstrated. 3. Multilevel spondylosis and postop changes as detailed above.
[2023-04-07 12:00] VITALS: BP 146/75
== END 2023-04-07 11:54 | disposition home or self-care (01) ==
LOC: EC 07:58
DX: M47.816 Spondylosis without myelopathy or radiculopathy, lumbar region (principal); I25.10 Atherosclerotic heart disease of native coronary artery without angina pectoris; I10 Essential (primary) hypertension; I25.2 Old myocardial infarction; F41.9 Anxiety disorder, unspecified; E78.5 Hyperlipidemia, unspecified; M19.90 Unspecified osteoarthritis, unspecified site; Z79.01 Long term (current) use of anticoagulants; Z79.899 Other long term (current) drug therapy; Z79.1 Long term (current) use of non-steroidal anti-inflammatories (NSAID); Z79.82 Long term (current) use of aspirin; Z87.891 Personal history of nicotine dependence
CPT/HCPCS: 72100; 72220; 99284; 96374; 96375 ×3; J1100; J2360; J1170; J1885

== ENCOUNTER 2023-05-02 13:03 | Observation (INO) | payer MEDICARE ==
--- NOTE | 2023-05-02 15:38 | ED ---
Dizziness HPI - General Chief Complaint: Syncope Stated Complaint: Syncope,Hit Head-On Thinners Time Seen by Provider: 05/02/23 15:13 Source: patient Mode of arrival: wheelchair Limitations: no limitations - History of Present Illness Initial Comments: 72-year-old male with a past medical history significant for A. fib on Plavix and coronary artery disease status post stenting presenting to the ED with a chief complaint of syncope. Patient states this morning experienced an episode of diaphoresis. States that this eventually improved after approximately an hour. States that he went to [employer]. While walking toward [employer] with his Walker, patient had a near syncopal episode causing him to lose balance on his Walker and fall down to his knees. Shortly after, patient had a syncopal episode which then caused him to fall onto the parking lot. Patient did hit his head. There was a loss of consciousness reported by the juanita william's family member who witnessed this event. States LOC less than a minute. Currently, case the patient is acting his normal self. States that while in the waiting room. He did have another episode of diaphoresis however denies any accompanying chest pain, shortness of breath, lightheadedness, dizziness. At this time, patient only notes headache. No other complaints. - Related Data Home Medications Medication Instructions Recorded Confirmed Aspirin EC [Ecotrin Low Dose] 81 mg PO DAILY 07/29/18 05/02/23 Atorvastatin [Lipitor] 80 mg PO HS 07/29/18 05/02/23 Clopidogrel [Plavix] 75 mg PO DAILY 07/29/18 05/02/23 Fenofibrate [Lofibra] 160 mg PO DAILY 07/29/18 05/02/23 Otis-3 Fatty Acids/Fish Oil [Fish 2 cap PO DAILY 07/29/18 05/02/23 Oil 1,000 mg Softgel] PARoxetine [Paxil] 20 mg PO DAILY 07/29/18 05/02/23 hydroCHLOROthiazide 12.5 mg PO DAILY 07/29/18 05/02/23 Cyanocobalamin (Vitamin B-12) 1,000 mcg PO DAILY 08/02/18 05/02/23 [Vitamin B-12] Nitroglycerin 0.4 mg SL DIRECTED PRN 08/02/18 05/02/23 Metoprolol Tartrate [Lopressor] 50 mg PO BID 07/17/20 05/02/23 Ascorbic Acid [Vitamin C] 1,000 mg PO DAILY 10/07/22 05/02/23 Losartan Potassium [Cozaar] 50 mg PO DAILY 10/07/22 05/02/23 Zinc Gluconate [Zinc] 50 mg PO BID 10/07/22 05/02/23 HYDROcodone/APAP 7.5-325MG [[place] 1 tab PO Q8H PRN 05/02/23 05/02/23 7.5-325] tiZANidine [Zanaflex] 2 mg PO BID 05/02/23 05/02/23 Allergies Allergy/AdvReac Type Severity Reaction Status Date / Time No Known Allergies Allergy Verified 05/02/23 15:59 Review of Systems ROS Statement: Those systems with pertinent positive or pertinent negative responses have been documented in the HPI. ROS Other: All systems not noted in ROS Statement are negative. 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, DDD,spinal stenosis, chronic back pain, pancreatitis 01-05-13, degenerative disc disease Last Myocardial Infarction Date:: 2016 History of Any Multi-Drug Resistant Organisms: None Reported Past Surgical History: Cholecystectomy, Heart Catheterization With Stent, Hernia Repair, Joint Replacement Additional Past Surgical History / Comment(s): BILAT CATARACTS, south inguinal hernia repair 1995, umbilical hernia repair x2 pain clinic procedures, 08-26- south l3-4,l4-5 lumbar laminectomy and medial facetectomy, lt hip replacement Past Anesthesia/Blood Transfusion Reactions: No Reported Reaction Date of Last Stent Placement:: 2016 Past Psychological History: Anxiety Smoking Status: Former smoker Past Alcohol Use History: Rare Past Drug Use History: None Reported - Past Family History Mother Family Medical History: Coronary Artery Disease (CAD) Additional Family Medical History / Comment(s): stents cabg x2 Father Family Medical History: Coronary Artery Disease (CAD), Vascular Disorder Additional Family Medical History / Comment(s): cabg General Exam Limitations: no limitations General appearance: alert, in no apparent distress Respiratory exam: Present: normal lung sounds bilaterally Cardiovascular Exam: Present: irregular rhythm GI/Abdominal exam: Present: soft Neurological exam: Present: alert, oriented X3 Skin exam: Present: warm, dry Course Vital Signs 05/02/23 05/02/23 05/02/23 13:04 15:05 15:08 Temperature 97.4 F L Pulse Rate 76 63 Pulse Rate [ 125 H Steel Pickler ] Respiratory 18 23 Rate Blood Pressure 92/50 95/69 O2 Sat by Pulse 96 Oximetry 05/02/23 05/02/23 05/02/23 15:15 15:30 15:45 Temperature Pulse Rate 60 61 Pulse Rate [ Steel Pickler ] Respiratory 20 18 Rate Blood Pressure 92/69 102/61 106/67 O2 Sat by Pulse 97 92 L Oximetry 05/02/23 16:00 Temperature Pulse Rate 60 Pulse Rate [ Steel Pickler ] Respiratory 18 Rate Blood Pressure O2 Sat by Pulse 97 Oximetry Medical Decision Making - Medical Decision Making Was pt. sent in by a medical professional or institution (, PA, ALGEBRA TEACHER, urgent care, hospital, or retirement...) When possible be specific @ -No Did you speak to anyone other than the patient for history (EMS, parent, family, police, friend...)? What history was obtained from this source @ -No Did you review nursing and triage notes (agree or disagree)? Why? @ -I reviewed and agree with nursing and triage notes Were old charts reviewed (outside hosp., previous admission, EMS record, old EKG, old radiological studies, urgent care reports/EKG's, retirement records)? Report findings @ -No old charts were reviewed Differential Diagnosis (chest pain, altered mental status, abdominal pain women, abdominal pain men, vaginal bleeding, weakness, fever, dyspnea, syncope, headach e, dizziness, GI bleed, back pain, seizure, CVA, palpatations, mental health, musculoskeletal)? @ -Differential Syncope: Valvular disease, hypertrophic cardiomyopathy, pulmonary embolism, tamponade, tachycardia, bradycardia, [place], hypovolemia, hemorrhage, dissection, anemia, intra cranial hemorrhage, seizure, hypoglycemia, carbon monoxide poisoning, this is not meant to be an all-inclusive list. EKG interpreted by me (3pts min.). @ -As above X-rays interpreted by me (1pt min.). @ -None done CT interpreted by me (1pt min.). @ -CT brain/C-spine interpreted by me show no evidence of fracture, bleed or other acute finding. U/S interpreted by me (1pt. min.). @ -None done What testing was considered but not performed or refused? (CT, X-rays, U/S, labs)? Why? @ -None What meds were considered but not given or refused? Why? @ -None Did you discuss the management of the patient with other professionals (professionals i.e. , PA, ALGEBRA TEACHER, lab, RT, psych nurse, social media editor, riveting machine operator automatic, teacher, workplace rehabilitation officer, nurse case manager)? Give summary @ -No Was smoking cessation discussed for >3mins.? @ -No Was critical care preformed (if so, how long)? @ -No Were there social determinants of health that impacted care today? How? (H omelessness, low income, unemployed, alcoholism, drug addiction, transportation, low edu. Level, literacy, decrease access to med. care, care home, rehab)? @ -No Was there de-escalation of care discussed even if they declined (Discuss DNR or withdrawal of care, Hospice)? DNR status @ -No What co-morbidities impacted this encounter? (DM, HTN, Smoking, COPD, CAD, Cancer, CVA, ARF, Chemo, Hep., AIDS, mental health diagnosis, sleep apnea, morbid obesity)? @ -A. fib, coronary artery disease Was patient admitted / discharged? Hospital course, mention meds given and route, prescriptions, significant lab abnormalities, going to OR and other pertinent info. @ -Admission The 72-year-old male presenting to the ED with complaints of diaphoresis and syncope. Patient is on Plavix and does report hitting his head however CT C- spine and brain showed no evidence of acute process. Laboratory workup here Shows an elevated white blood cell count at 11.7, chemistry panel showing an elevated BUN and creatinine at 25 and 1.85 however this appears to be near his baseline. Initial troponin indeterminate at 0.019. At this time, patient reports no chest pain. Patient will be admitted to observation with consult to cardiology to rule out ACS. Discussed plan of care with patient and family who are in agreement. Undiagnosed new problem with uncertain prognosis? @ -No Drug Therapy requiring intensive monitoring for toxicity (Heparin, Nitro, Insulin, Cardizem)? @ -No Were any procedures done? @ -No Diagnosis/symptom? @ -Diaphoresis, syncope Acute, or Chronic, or Acute on Chronic? @ -Acute Uncomplicated (without systemic symptoms) or Complicated (systemic symptoms)? @ -Uncomplicated Side effects of treatment? @ -No Exacerbation, Progression, or Severe Exacerbation? @ -No Poses a threat to life or bodily function? How? (Chest pain, [place], [place], pneumonia, PE, COPD, DKA, ARF, appy, cholecystitis, CVA, Diverticulitis, Homicidal, Suicidal, threat to staff... and all critical care pts) @ -Possibly - Lab Data Result diagrams: 05/02/23 15:15 05/02/23 15:15 Lab Results 05/02/23 05/02/23 05/02/23 Range/Units 15:15 15:15 15:15 WBC 11.7 H (3.8-10.6) k/uL RBC 4.92 (4.30-5.90) m/uL Hgb 15.7 (13.0-17.5) gm/dL Hct 46.8 (39.0-53.0) % MCV 95.2 (80.0-100.0) fL MCH 32.0 (25.0-35.0) pg MCHC 33.6 (31.0-37.0) g/dL RDW 13.6 (11.5-15.5) % Plt Count 281 (150-450) k/uL MPV 7.6 Neutrophils % 64 % Lymphocytes % 20 % Monocytes % 8 % Eosinophils % 5 % Basophils % 0 % Neutrophils # 7.5 (1.3-7.7) k/uL Lymphocytes # 2.3 (1.0-4.8) k/uL Monocytes # 1.0 (0-1.0) k/uL Eosinophils # 0.6 (0-0.7) k/uL Basophils # 0.0 (0-0.2) k/uL PT 10.5 (10.0-12.5) sec INR 1.0 (<1.2) APTT 23.3 (22.0-30.0) sec Sodium 139 (137-145) mmol/L Potassium 4.5 (3.5-5.1) mmol/L Chloride 102 (98-107) mmol/L Carbon Dioxide 29 (22-30) mmol/L Anion Gap 8 mmol/L BUN 25 H (9-20) mg/dL Creatinine 1.86 H (0.66-1.25) mg/dL Est GFR (CKD-EPI)AfAm 41 (>60 ml/min/1.73 sqM) Est GFR (CKD-EPI)NonAf 35 (>60 ml/min/1.73 sqM) Glucose 133 H (74-99) mg/dL Calcium 9.6 (8.4-10.2) mg/dL Total Bilirubin 0.8 (0.2-1.3) mg/dL AST 40 (17-59) U/L ALT 48 (4-49) U/L Alkaline Phosphatase 60 (38-126) U/L Troponin I (0.000-0.034) ng/mL Total Protein 6.2 L (6.3-8.2) g/dL Albumin 3.8 (3.5-5.0) g/dL 05/02/23 Range/Units 15:15 WBC (3.8-10.6) k/uL RBC (4.30-5.90) m/uL Hgb (13.0-17.5) gm/dL Hct (39.0-53.0) % MCV (80.0-100.0) fL MCH (25.0-35.0) pg MCHC (31.0-37.0) g/dL RDW (11.5-15.5) % Plt Count (150-450) k/uL MPV Neutrophils % % Lymphocytes % % Monocytes % % Eosinophils % % Basophils % % Neutrophils # (1.3-7.7) k/uL Lymphocytes # (1.0-4.8) k/uL Monocytes # (0-1.0) k/uL Eosinophils # (0-0.7) k/uL Basophils # (0-0.2) k/uL PT (10.0-12.5) sec INR (<1.2) APTT (22.0-30.0) sec Sodium (137-145) mmol/L Potassium (3.5-5.1) mmol/L Chloride (98-107) mmol/L Carbon Dioxide (22-30) mmol/L Anion Gap mmol/L BUN (9-20) mg/dL Creatinine (0.66-1.25) mg/dL Est GFR (CKD-EPI)AfAm (>60 ml/min/1.73 sqM) Est GFR (CKD-EPI)NonAf (>60 ml/min/1.73 sqM) Glucose (74-99) mg/dL Calcium (8.4-10.2) mg/dL Total Bilirubin (0.2-1.3) mg/dL AST (17-59) U/L ALT (4-49) U/L Alkaline Phosphatase (38-126) U/L Troponin I 0.019 (0.000-0.034) ng/mL Total Protein (6.3-8.2) g/dL Albumin (3.5-5.0) g/dL - EKG Data EKG Comments: EKG shows A. fib at 107 bpm, QRS 147, QT/QTc 359/427 EKG remarkable for nonspeci fic ST and T-wave changes. Disposition Clinical Impression: Syncope Disposition: ADMITTED IP TO THIS HOSP Condition: Good Referrals: None,Stated [Primary Care Provider] - 1-2 days Time of Disposition: 16:59
[2023-05-02 15:41] LABS: Basophils % (A) 0 %; Eosinophils # (A) 0.6 k/uL (0-0.7); Eosinophils % (A) 5 %; HCT 46.8 % (39.0-53.0); HGB 15.7 gm/dL (13.0-17.5); Lymphocytes # (A) 2.3 k/uL (1.0-4.8); Lymphocytes % (A) 20 %; MCHC 33.6 g/dL (31.0-37.0); MCV 95.2 fL (80.0-100.0); Mean Platelet Volume 7.6; Monocytes % (A) 8 %; Neutrophils # (A) 7.5 k/uL (1.3-7.7); Neutrophils % (A) 64 %; Platelet Count 281 k/uL (150-450); RBC 4.92 m/uL (4.30-5.90); RDW 13.6 % (11.5-15.5); WBC 11.7 k/uL (3.8-10.6)
[2023-05-02 15:57] LABS: ALT 48 U/L (4-49); AST 40 U/L (17-59); African American GFR (CKD) 41 (>60 ml/min/1.73 sqM); Albumin 3.8 g/dL (3.5-5.0); Alkaline Phosphatase 60 U/L (38-126); Anion Gap 8 mmol/L; Blood Urea Nitrogen 25 mg/dL (9-20); Calcium 9.6 mg/dL (8.4-10.2); Carbon Dioxide 29 mmol/L (22-30); Chloride 102 mmol/L (98-107); Glucose 133 mg/dL (74-99); Non-African American GFR(CKD) 35 (>60 ml/min/1.73 sqM); Potassium 4.5 mmol/L (3.5-5.1); Sodium 139 mmol/L (137-145); Total Bilirubin 0.8 mg/dL (0.2-1.3); Total Protein 6.2 g/dL (6.3-8.2)
--- NOTE | 2023-05-02 16:10 | CT ---
EXAMINATION TYPE: CT brain cspine wo con CT DLP: 1980 mGycm, Automated exposure control for dose reduction was used. DATE OF EXAM: 05/02/2023 3:59 PM COMPARISON: None. CLINICAL INDICATION:Male, 72 years old with history of s/p fall on plavix; Pt arrives with c/o syncop al episode, pt fall from standing hit his head and is on blood thinners, (plavix). Pt has multiple ab rasion to face. TECHNIQUE: Brain: Multiple axial CT images of the brain were obtained without IV contrast. Cspine: Axial CT images from the skull base to the inferior aspect of T2 we obtained without intraven ous contrast. Coronal and sagittal reformatted images were also reviewed. FINDINGS: Brain: Extra-axial spaces: No abnormal extra-axial fluid collections. Ventricular system: Within normal limits Cerebral parenchyma: Encephalomalacia the bilateral frontal lobes and left temporal lobe. No acute in traparenchymal hemorrhage or mass effect. The grove-white junction is well differentiated. Scattered hypoattenuating areas are seen within the white matter. Cerebellum: Unremarkable. Mass effect: No evidence of midline shift. Intracranial vasculature: Atherosclerotic calcifications of the intracranial vessels. Soft tissues: Normal. Calvarium/osseous structures: No depressed skull fracture. Paranasal sinuses and mastoid air cells: Clear. Visualized orbits: Bilateral aphakia Cervical spine: Fracture: None. Osseous structures: Multilevel degenerative disc disease changes with endplate spurring and disc oste ophyte complex's. Vertebral alignment: Within normal limits. Spinal canal/Neural Foramina: Disc osteophyte complexes at C2-C7 with at least mild spinal canal sten osis. Facet joint uncovertebral joint arthropathy scattered throughout the cervical spine with varyin g degrees of neural foraminal stenosis. Neck soft tissues: Prevertebral soft tissues are within normal limits. IMPRESSION: 1. No acute intracranial process. 2. Nonspecific white matter changes, likely secondary to chronic small vessel ischemic disease. 3. Remote injuries of the bilateral frontal lobes and in left temporal lobe with encephalomalacia. 4. No evidence of cervical spine fracture. 5. Moderate to severe multilevel degenerative disc disease.
[2023-05-02 16:36] LABS: Partial Thromboplastin Time 23.3 sec (22.0-30.0); Prothrombin Time 10.5 sec (10.0-12.5)
[2023-05-02] MEDS ORDERED: HYDROmorphone 0.5 MG/0.5 ML SYRINGE IVP PRN (17:33)
[2023-05-02] MEDS ORDERED: ONDANSETRON 4 MG/2 ML VIAL IVP PRN (17:33)
[2023-05-02] MEDS ORDERED: HYDROmorphone 1 MG/ML 1 ML SYRINGE IVP PRN (17:33)
[2023-05-02] MEDS ORDERED: NALOXONE 0.4 MG/ML 1 ML VIAL IV PRN (17:33)
[2023-05-02] MEDS ORDERED: NITROGLYCERIN SL TABS 0.4 MG TAB SUBLINGUAL PRN (17:40)
[2023-05-02] MEDS ORDERED: ASPIRIN 81 MG PO PRN (17:40)
[2023-05-02] MEDS: SODIUM CHLORIDE 0.9% 1,000 ML IV SCH (20:04)
[2023-05-02] MEDS ORDERED: ATORVASTATIN 80 MG TAB PO SCH (22:50)
[2023-05-02] MEDS ORDERED: ZINC SULFATE 220 MG CAP PO SCH (23:00)
[2023-05-02] MEDS: tiZANidine 4 MG TAB PO SCH (23:17)
[2023-05-02] MEDS: LORATADINE-PSEUDOEPH 5-120 MG 1 EACH TAB.ER.12H PO SCH (23:18)
[2023-05-02] MEDS: METOPROLOL TARTRATE 50 MG TAB PO SCH (23:19)
[2023-05-02] MEDS: HYDROcodone/APAP 7.5-325MG 1 EACH TAB PO PRN (23:19)
[2023-05-03 03:37] LABS: Appearance,Urine Clear (Clear); Bilirubin,Urine Negative (Negative); Blood,Urine Negative (Negative); Color,Urine Light Yellow; Glucose,Urine (UA) Negative (Negative); Ketones,Urine Negative (Negative); Leukocyte Esterase,Urine Negative (Negative); Nitrite,Urine Negative (Negative); Protein,Urine Negative (Negative); Specific Gravity,Urine 1.015 (1.001-1.035); Urobilinogen,Urine <2.0 mg/dL (<2.0)
[2023-05-03] MEDS: SODIUM CHLORIDE 0.9% 1,000 ML IV SCH ×2 (05:23→13:12)
[2023-05-03] MEDS ORDERED: NITROGLYCERIN SL TABS 0.4 MG TAB SUBLINGUAL PRN ×2 (07:43→07:46)
[2023-05-03] MEDS ORDERED: CLOPIDOGREL 75 MG TAB PO SCH (09:00)
[2023-05-03] MEDS ORDERED: FENOFIBRATE 160 MG TAB PO SCH (09:00)
[2023-05-03 09:18] LABS: African American GFR (CKD) 60 (>60 ml/min/1.73 sqM); Anion Gap 5 mmol/L; Blood Urea Nitrogen 24 mg/dL (9-20); Carbon Dioxide 30 mmol/L (22-30); Chloride 103 mmol/L (98-107); Glucose 135 mg/dL (74-99); Non-African American GFR(CKD) 52 (>60 ml/min/1.73 sqM); Sodium 138 mmol/L (137-145)
--- NOTE | 2023-05-03 09:25 | P.CRDCN ---
History of Present Illness Consult date: 05/03/23 Consult reason: sycope History of present illness: History of present illness: This is a 72-year-old male patient of Dr. Brian with past medical history of coronary artery disease with prior stenting, hypertension, dyslipidemia, obstructive sleep apnea, overweight. We have been asked to evaluate the patient for syncope. Patient states that he has had ongoing problems with his back with severe pain over the past month and has followed up with pain management and Dr Guajardo. He was at the [employer] office in the parking lot cut out of the car with his walker and he started walking but he suddenly dropped to the ground and passed out. He denied having any one-sided weakness, no loss of bladder or bowel. He states he had sweats during the incident. He denies any palpitations. He denies having any chest pain at the time. He states he had an episode last night where his heart was racing once in a while he feels this but did not have it at the time of this episode. He has had no abdominal pain and no blood in the stools or urine. EKGs have been reviewed with sinus rhythm first degree block, right bundle branch block CT of the brain and cervical spine revealed no acute intracranial process. Nonspecific white matter changes likely chronic small vessel ischemic disease. Remote injuries of the bilateral frontal lobes and in the left temporal lobe with encephalomalacia. No cervical spine fracture. Moderate to severe multilevel degenerative disc disease. WBC 11.7, hemoglobin 15.7, platelet count 281. INR 1. Electrolytes normal. BUN 25 creatinine 1.86 with baseline of 1.21.3. Blood sugar 133. Troponin negative 2. Liver function tests are normal. Urinalysis normal. Home cardiac medications: Aspirin 81 mg daily, atorvastatin 80 mg at bedtime, Plavix 75 mg daily, hydrochlorothiazide 12.5 mg daily, losartan 50 mg daily, Lopressor 50 g twice daily, nitroglycerin as needed, omega-3 fatty acids. Right coronary angiography 10/09/2022: 4050 percent proximal RCA in-stent stenosis with normal IFR of 0.96. Left heart cath 10/07/2022: Moderate stenosis involving the right coronary artery Echocardiogram 09/2022 revealed EF of 50-55%. Review Of Systems: At the time of my evaluation: Constitutional: No fever, no chills. No weakness, fatigue or lethargy. EENT: No headache. No dizziness. Lungs: No shortness of breath, cough, no sputum production. No wheezing. Cardiovascular: No chest pain, no lower extremity edema. No palpitations. No paroxysmal nocturnal dyspnea. No orthopnea. No lightheadedness or dizziness. No syncopal episodes. Abdominal: No abdominal pain. No nausea, vomiting. No diarrhea. No constipation. No bloody or tarry stools. Genitourinary: No dysuria.. No urinary retention. Musculoskeletal: No myalgias. No muscle weakness, no frequent falls. No back pain. No neck pain. Integumentary: No wounds. No rash. No unusual bruising. Neurologic: No aphasia. No facial droop. No change in mentation. No head injury. No headache. Physical examination: Gen: This is a 72-year-old male resting in bed, appears to be uncomfortable due to his back VS: reviewed HEENT: Head is atraumatic, normocephalic. Pupils equal, round. Sclerae is anicteric. NECK: Supple. No JVD. . LUNGS: Clear to auscultation. No wheezes or rhonchi. No intercostal retractions. HEART: Regular rate and rhythm. No murmur. ABDOMEN: Soft No tenderness. EXTREMITIES: No pedal edema. No calf tenderness. NEUROLOGICAL: Patient is awake, alert and oriented x3. Assessment: Syncopal episode of unclear etiology, rule out arrhythmia Acute kidney injury History of coronary artery disease with prior stenting Hypertension Dyslipidemia Section sleep apnea Overweight Chronic back pain Plan: Home cardiac medications have been resumed except for losartan and hydrochlorothiazide on hold for acute kidney injury Repeat BMP ordered Obtain 2-D echocardiogram and Doppler study to assess cardiac structure and function Event monitor ordered for 4 weeks and patient may follow up in the office with Dr. Brian in 5 weeks. Thank you kindly for this consultation. Nurse practitioner note has been reviewed, I agree with documented findings and plan of care. Patient was seen and examined. 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 cath with 2 stents Past Anesthesia/Blood Transfusion Reactions: No Reported Reaction Date of Last Stent Placement:: 2016 Past Psychological History: Anxiety Additional Psychological History / Comment(s): pt lives with his , is independant. 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 Smoking Status: Former smoker Past Alcohol Use History: Rare Additional Past Alcohol Use History / Comment(s): quit smoking 1984, started smoking age 17, smoked 18 yrs Past Drug Use History: None Reported - Past Family History Mother Family Medical History: Coronary Artery Disease (CAD) Additional Family Medical History / Comment(s): stents, cabbag Father Family Medical History: Coronary Artery Disease (CAD), Vascular Disorder Additional Family Medical History / Comment(s): cabg Medications and Allergies Home Medications Medication Instructions Recorded Confirmed Type Aspirin EC [Ecotrin Low Dose] 81 mg PO DAILY 07/29/18 05/02/23 History Atorvastatin [Lipitor] 80 mg PO HS 07/29/18 05/02/23 History Clopidogrel [Plavix] 75 mg PO DAILY 07/29/18 05/02/23 History Fenofibrate [Lofibra] 160 mg PO DAILY 07/29/18 05/02/23 History [place]-3 Fatty Acids/Fish Oil [Fish 1 cap PO BID 07/29/18 05/02/23 History Oil 1,000 mg Softgel] PARoxetine [Paxil] 20 mg PO DAILY 07/29/18 05/02/23 History hydroCHLOROthiazide 12.5 mg PO DAILY 07/29/18 05/02/23 History Cyanocobalamin (Vitamin B-12) 1,000 mcg PO DAILY 08/02/18 05/02/23 History [Vitamin B-12] Nitroglycerin 0.4 mg SL DIRECTED PRN 08/02/18 05/02/23 History Metoprolol Tartrate [Lopressor] 50 mg PO BID 07/17/20 05/02/23 History Ascorbic Acid [Vitamin C] 1,000 mg PO DAILY 10/07/22 05/02/23 History Losartan Potassium [Cozaar] 50 mg PO DAILY 10/07/22 05/02/23 History Zinc Gluconate [Zinc] 50 mg PO BID 10/07/22 05/02/23 History Cholecalciferol (Vitamin D3) 1,250 mcg PO DAILY 05/02/23 05/02/23 History [Vitamin D3] HYDROcodone/APAP 7.5-325MG [[place] 1 tab PO Q8H PRN 05/02/23 05/02/23 History 7.5-325] Loratadine-Pseudoeph 10-240 mg 1 tab PO HS 05/02/23 05/02/23 History [Claritin-D 24 Hour] tiZANidine [Zanaflex] 2 mg PO BID 05/02/23 05/02/23 History Allergies Allergy/AdvReac Type Severity Reaction Status Date / Time No Known Allergies Allergy Verified 05/02/23 15:59 Physical Exam Vitals: Vital Signs Temp Pulse Pulse Resp BP BP Pulse Ox 05/03/23 02:44 98.2 F 65 16 115/64 95 05/02/23 21:30 97.9 F 87 16 173/82 95 05/02/23 20:30 72 20 91/77 95 05/02/23 20:15 66 24 143/83 95 05/02/23 20:00 70 17 123/87 94 L 05/02/23 19:45 121 H 23 129/75 94 L 05/02/23 19:30 60 20 130/96 96 05/02/23 19:15 62 13 122/74 79 L 05/02/23 19:00 58 L 11 L 125/74 90 L 05/02/23 18:45 62 21 109/83 97 05/02/23 18:30 61 19 140/111 92 L 05/02/23 18:15 60 22 136/86 92 L 05/02/23 18:00 60 13 149/86 97 05/02/23 17:30 65 25 H 124/80 98 05/02/23 16:45 58 L 136/85 97 05/02/23 16:30 61 131/90 93 L 05/02/23 16:00 60 18 97 05/02/23 15:45 106/67 05/02/23 15:30 61 18 102/61 92 L 05/02/23 15:15 60 20 92/69 97 05/02/23 15:08 125 H 05/02/23 15:05 63 23 95/69 05/02/23 13:04 97.4 F L 76 18 92/50 96 Intake and Output 05/02/23 05/03/23 05/03/23 22:59 06:59 14:59 Output Total 2 Balance -2 Output: Urine 2 Other: # Voids 0 Weight 105.233 kg Results 05/02/23 15:15 05/02/23 15:15 Cardiac Enzymes 05/02/23 05/02/23 05/02/23 Range/Units 15:15 15:15 18:25 AST 40 (17-59) U/L Troponin I 0.019 0.017 (0.000-0.034) ng/mL Coagulation 05/02/23 Range/Units 15:15 PT 10.5 (10.0-12.5) sec APTT 23.3 (22.0-30.0) sec CBC 05/02/23 Range/Units 15:15 WBC 11.7 H (3.8-10.6) k/uL RBC 4.92 (4.30-5.90) m/uL Hgb 15.7 (13.0-17.5) gm/dL Hct 46.8 (39.0-53.0) % Plt Count 281 (150-450) k/uL Comprehensive Metabolic Panel 05/02/23 Range/Units 15:15 Sodium 139 (137-145) mmol/L Potassium 4.5 (3.5-5.1) mmol/L Chloride 102 (98-107) mmol/L Carbon Dioxide 29 (22-30) mmol/L BUN 25 H (9-20) mg/dL Creatinine 1.86 H (0.66-1.25) mg/dL Glucose 133 H (74-99) mg/dL Calcium 9.6 (8.4-10.2) mg/dL AST 40 (17-59) U/L ALT 48 (4-49) U/L Alkaline Phosphatase 60 (38-126) U/L Total Protein 6.2 L (6.3-8.2) g/dL Albumin 3.8 (3.5-5.0) g/dL Current Medications Generic Name Dose Route Start Last Admin Trade Name Freq PRN Reason Stop Dose Admin Hydrocodone Bitart/Acetaminophen 1 each 05/02/23 22:44 05/02/23 23:19 Hydrocodone/Apap 7.5-325mg 1 Each Tab PO 1 each Q8H PRN Administration Pain Aspirin 324 mg 05/02/23 17:40 Aspirin 81 Mg PO ONCE PRN Pain/Discomfort Atorvastatin Calcium 80 mg 05/02/23 22:50 05/02/23 23:18 Atorvastatin 80 Mg Tab PO 80 mg HS CAMRON Administration Hydromorphone HCl 0.5 mg 05/02/23 17:33 Hydromorphone 0.5 Mg/0.5 Ml Syringe IVP Q3HR PRN Moderate Pain (Scale 4 to 6) Hydromorphone HCl 1 mg 05/02/23 17:33 Hydromorphone 1 Mg/Ml 1 Ml Syringe IVP Q3HR PRN Severe Pain (Scale 7 to 10) Sodium Chloride 1,000 mls @ 100 mls/hr 05/02/23 17:45 05/03/23 05:23 Saline 0.9% IV 100 mls/hr .Q10H CAMRON Administration Loratadine/Pseudoephedrine Sulfate 1 each 05/02/23 23:00 05/02/23 23:18 Loratadine-Pseudoeph 5-120 Mg 1 Each Tab.Er.12h PO 1 each BID CAMORN Administration Metoprolol Tartrate 50 mg 05/02/23 22:45 05/02/23 23:19 Metoprolol Tartrate 50 Mg Tab PO 50 mg BID CAMRON Administration Naloxone HCl 0.2 mg 05/02/23 17:33 Naloxone 0.4 Mg/Ml 1 Ml Vial IV Q2M PRN Opioid Reversal Nitroglycerin 0.4 mg 05/02/23 17:40 Nitroglycerin Sl Tabs 0.4 Mg Tab SUBLINGUAL ONCE PRN Angina Ondansetron HCl 4 mg 05/02/23 17:33 Ondansetron 4 Mg/2 Ml Vial IVP Q8HR PRN Nausea And Vomiting Tizanidine HCl 2 mg 05/02/23 23:00 05/02/23 23:17 Tizanidine 4 Mg Tab PO 2 mg BID CAMRON Administration Zinc Sulfate 220 mg 05/02/23 23:00 05/02/23 23:19 Zinc Sulfate 220 Mg Cap PO 220 mg HS CAMRON Administration Intake and Output 05/02/23 05/03/23 05/03/23 22:59 06:59 14:59 Output Total 2 Balance -2 Output: Urine 2 Other: # Voids 0 Weight 105.233 kg 05/02/23 15:15 05/02/23 15:15
[2023-05-03] MEDS: METOPROLOL TARTRATE 50 MG TAB PO SCH (09:26)
[2023-05-03] MEDS: LORATADINE-PSEUDOEPH 5-120 MG 1 EACH TAB.ER.12H PO SCH (09:27)
[2023-05-03] MEDS: tiZANidine 4 MG TAB PO SCH (09:28)
[2023-05-03] MEDS: HYDROcodone/APAP 7.5-325MG 1 EACH TAB PO PRN (09:30)
[2023-05-03] MEDS ORDERED: PARoxetine 20 MG TAB PO SCH (12:00)
--- NOTE | 2023-05-03 12:14 | P.HPIM ---
History of Present Illness Patient is a 70-year-old male came in with compensative syncope. Patient is found to have acute renal failure with a serum creatinine going up to 1.7 improved with IV fluids and still about 1.3. Patient did take losartan and hydrochlorothiazide. There are some BP readings which are low normal blood pressures. Patient does have history of her back pain CT cervical spine did show degenerative disc disease follows up with Dr. Guajardo has outpatient supposed to get epidural steroid injection. Patient still has a lot of pain. EKG shows sinus rhythm with first-degree AV block and right bundle branch block. Losartan and had good thiazide are being held. Patient cardiac catheterization was few years ago. REVIEW OF SYSTEMS: CONSTITUTIONAL: No fever, no malaise, no fatigue. HEENT: No recent visual problems or hearing problems. Denied any sore throat. CARDIOVASCULAR: No chest pain, orthopnea, PND, no palpitations. PULMONARY: No shortness of breath, no cough, no hemoptysis. GASTROINTESTINAL: No diarrhea, no nausea, no vomiting, no abdominal pain. NEUROLOGICAL: No headaches, no weakness, no numbness. HEMATOLOGICAL: Denies any bleeding or petechiae. GENITOURINARY: Denies any burning micturition, frequency, or urgency. MUSCULOSKELETAL/RHEUMATOLOGICAL: Denies any joint pain, swelling, or any muscle pain. ENDOCRINE: Denies any polyuria or polydipsia. The rest of the 14-point review of systems is negative. PHYSICAL EXAMINATION: GENERAL: The patient is alert and oriented x3, not in any acute distress. Well developed, obese HEENT: Pupils are round and equally reacting to light. EOMI. No scleral icterus. No conjunctival pallor. Normocephalic, atraumatic. No pharyngeal erythema. No thyromegaly. CARDIOVASCULAR: S1 and S2 present. No murmurs, rubs, or gallops. PULMONARY: Chest is clear to auscultation, no wheezing or crackles. ABDOMEN: Soft, nontender, nondistended, normoactive bowel sounds. No palpable organomegaly. MUSCULOSKELETAL: No joint swelling or deformity. EXTREMITIES: No cyanosis, clubbing, or pedal edema. NEUROLOGICAL: Gross neurological examination did not reveal any focal deficits. SKIN: No rashes. Assessment and plan -Syncope: Secondary to intravascular depletion dehydration from hydrochlorothiazide which is being held at this time. Patient's losartan is also being held but probably will need this medication and patient will be started on a low-dose of his 25 mg May need 50 mg for blood pressure. Echocardiogram is being obtained if that's normal patient can be discharged today -Coronary artery disease with stent more than a year ago -Chronic low back pain patient is scheduled to undergo epidural steroids injection, can hold Plavix for a week for this procedure as cardiac catheterization and stent placement was more than a year ago -Hypertension: Adequate as it is being discontinue her but will need losartan next and-acute renal failure secondary to hydrochlorothiazide and losartan are being held for now. 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 cath with 2 stents Past Anesthesia/Blood Transfusion Reactions: No Reported Reaction Date of Last Stent Placement:: 2016 Past Psychological History: Anxiety Additional Psychological History / Comment(s): pt lives with his , is independant. 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 Smoking Status: Former smoker Past Alcohol Use History: Rare Additional Past Alcohol Use History / Comment(s): quit smoking 1984, started smoking age 17, smoked 18 yrs Past Drug Use History: None Reported - Past Family History Mother Family Medical History: Coronary Artery Disease (CAD) Additional Family Medical History / Comment(s): stents, cabbag Father Family Medical History: Coronary Artery Disease (CAD), Vascular Disorder Additional Family Medical History / Comment(s): cabg Medications and Allergies Home Medications Medication Instructions Recorded Confirmed Type Aspirin EC [Ecotrin Low Dose] 81 mg PO DAILY 07/29/18 05/02/23 History Atorvastatin [Lipitor] 80 mg PO HS 07/29/18 05/02/23 History Fenofibrate [Lofibra] 160 mg PO DAILY 07/29/18 05/02/23 History [place]-3 Fatty Acids/Fish Oil [Fish 1 cap PO BID 07/29/18 05/02/23 History Oil 1,000 mg Softgel] PARoxetine [Paxil] 20 mg PO DAILY 07/29/18 05/02/23 History Cyanocobalamin (Vitamin B-12) 1,000 mcg PO DAILY 08/02/18 05/02/23 History [Vitamin B-12] Nitroglycerin 0.4 mg SL DIRECTED PRN 08/02/18 05/02/23 History Metoprolol Tartrate [Lopressor] 50 mg PO BID 07/17/20 05/02/23 History Ascorbic Acid [Vitamin C] 1,000 mg PO DAILY 10/07/22 05/02/23 History Zinc Gluconate [Zinc] 50 mg PO BID 10/07/22 05/02/23 History Cholecalciferol (Vitamin D3) 1,250 mcg PO DAILY 05/02/23 05/02/23 History [Vitamin D3] HYDROcodone/APAP 7.5-325MG [[place] 1 tab PO Q8H PRN 05/02/23 05/02/23 History 7.5-325] Loratadine-Pseudoeph 10-240 mg 1 tab PO HS 05/02/23 05/02/23 History [Claritin-D 24 Hour] tiZANidine [Zanaflex] 2 mg PO BID 05/02/23 05/02/23 History Clopidogrel [Plavix] 75 mg PO DAILY #0 05/03/23 05/02/23 Rx Losartan [Cozaar] 25 mg PO DAILY #30 tab 05/03/23 Rx traMADol HCL 50 mg PO QID #30 tab 05/03/23 Rx Allergies Allergy/AdvReac Type Severity Reaction Status Date / Time No Known Allergies Allergy Verified 05/02/23 15:59 Physical Exam Vitals: Vital Signs Temp Pulse Pulse Resp BP BP Pulse Ox 05/03/23 07:00 97.9 F 59 L 12 143/72 98 05/03/23 02:44 98.2 F 65 16 115/64 95 05/02/23 21:30 97.9 F 87 16 173/82 95 05/02/23 20:30 72 20 91/77 95 05/02/23 20:15 66 24 143/83 95 05/02/23 20:00 70 17 123/87 94 L 05/02/23 19:45 121 H 23 129/75 94 L 05/02/23 19:30 60 20 130/96 96 05/02/23 19:15 62 13 122/74 79 L 05/02/23 19:00 58 L 11 L 125/74 90 L 05/02/23 18:45 62 21 109/83 97 05/02/23 18:30 61 19 140/111 92 L 05/02/23 18:15 60 22 136/86 92 L 05/02/23 18:00 60 13 149/86 97 05/02/23 17:30 65 25 H 124/80 98 05/02/23 16:45 58 L 136/85 97 05/02/23 16:30 61 131/90 93 L 05/02/23 16:00 60 18 97 05/02/23 15:45 106/67 05/02/23 15:30 61 18 102/61 92 L 05/02/23 15:15 60 20 92/69 97 05/02/23 15:08 125 H 05/02/23 15:05 63 23 95/69 05/02/23 13:04 97.4 F L 76 18 92/50 96 Intake and Output 05/02/23 05/03/23 05/03/23 22:59 06:59 14:59 Intake Total 118 Output Total 2 Balance -2 118 Intake: Oral 118 Output: Urine 2 Other: # Voids 0 Weight 105.233 kg Results CBC & Chem 7: 05/02/23 15:15 05/03/23 08:40 Labs: Abnormal Lab Results - Last 24 Hours (Table) 05/02/23 05/02/23 05/03/23 Range/Units 15:15 15:15 08:40 WBC 11.7 H (3.8-10.6) k/uL BUN 25 H 24 H (9-20) mg/dL Creatinine 1.86 H 1.35 H (0.66-1.25) mg/dL Glucose 133 H 135 H (74-99) mg/dL Total Protein 6.2 L (6.3-8.2) g/dL Thrombosis Risk Factor Assmnt - Choose All That Apply Any of the Below Risk Factors Present?: Yes Each Factor Represents 1 point: Obesity (BMI >25) Other Risk Factors: Yes Each Risk Factor Represents 2 Points: Age 61-74 years Other congenital or acquired thrombophilia - If yes, enter type in comment: No Thrombosis Risk Factor Assessment Total Risk Factor Score: 3 Thrombosis Risk Factor Assessment Level: Moderate Risk
--- NOTE | 2023-05-03 12:14 | P.DS ---
Providers Date of admission: 05/02/23 16:47 Attending physician: Eneida Lieberman Consults: 05/02/23 17:33 Consult Physician Urgent Consulting Provider: [facility] Consult Reason/Comments: syncope, diaphoresis Do you want consulting provider notified?: Yes Primary care physician: Stated None Hospital Course: Patient is a 70-year-old male came in with compensative syncope. Patient is found to have acute renal failure with a serum creatinine going up to 1.7 improved with IV fluids and still about 1.3. Patient did take losartan and hydrochlorothiazide. There are some BP readings which are low normal blood pressures. Patient does have history of her back pain CT cervical spine did show degenerative disc disease follows up with Dr. Guajardo has outpatient supposed to get epidural steroid injection. Patient still has a lot of pain. EKG shows sinus rhythm with first-degree AV block and right bundle branch block. Losartan and had good thiazide are being held. Patient cardiac catheterization was few years ago. REVIEW OF SYSTEMS: CONSTITUTIONAL: No fever, no malaise, no fatigue. HEENT: No recent visual problems or hearing problems. Denied any sore throat. CARDIOVASCULAR: No chest pain, orthopnea, PND, no palpitations. PULMONARY: No shortness of breath, no cough, no hemoptysis. GASTROINTESTINAL: No diarrhea, no nausea, no vomiting, no abdominal pain. NEUROLOGICAL: No headaches, no weakness, no numbness. HEMATOLOGICAL: Denies any bleeding or petechiae. GENITOURINARY: Denies any burning micturition, frequency, or urgency. MUSCULOSKELETAL/RHEUMATOLOGICAL: Denies any joint pain, swelling, or any muscle pain. ENDOCRINE: Denies any polyuria or polydipsia. The rest of the 14-point review of systems is negative. PHYSICAL EXAMINATION: GENERAL: The patient is alert and oriented x3, not in any acute distress. Well developed, obese HEENT: Pupils are round and equally reacting to light. EOMI. No scleral icterus. No conjunctival pallor. Normocephalic, atraumatic. No pharyngeal erythema. No thyromegaly. CARDIOVASCULAR: S1 and S2 present. No murmurs, rubs, or gallops. PULMONARY: Chest is clear to auscultation, no wheezing or crackles. ABDOMEN: Soft, nontender, nondistended, normoactive bowel sounds. No palpable organomegaly. MUSCULOSKELETAL: No joint swelling or deformity. EXTREMITIES: No cyanosis, clubbing, or pedal edema. NEUROLOGICAL: Gross neurological examination did not reveal any focal deficits. SKIN: No rashes. Assessment and plan -Syncope: Secondary to intravascular depletion dehydration from hydrochlorothiazide which is being held at this time. Patient's losartan is also being held but probably will need this medication and patient will be started on a low-dose of his 25 mg May need 50 mg for blood pressure. Echocardiogram is being obtained if that's normal patient can be discharged today -Coronary artery disease with stent more than a year ago -Chronic low back pain patient is scheduled to undergo epidural steroids inje ction, can hold Plavix for a week for this procedure as cardiac catheterization and stent placement was more than a year ago -Hypertension: Adequate as it is being discontinue her but will need losartan next and-acute renal failure secondary to hydrochlorothiazide and losartan are being held for now. -Leukocytosis reactive without any organs of infection Patient will be discharged today after echocardiogram results Patient Condition at Discharge: Good Plan - Discharge Summary Discharge Rx Participant: No New Discharge Prescriptions: New Losartan [Cozaar] 25 mg PO DAILY #30 tab traMADol HCL 50 mg PO QID #30 tab Continue Atorvastatin [Lipitor] 80 mg PO HS Fenofibrate [Lofibra] 160 mg PO DAILY PARoxetine [Paxil] 20 mg PO DAILY Aspirin EC [Ecotrin Low Dose] 81 mg PO DAILY [place]-3 Fatty Acids/Fish Oil [Fish Oil 1,000 mg Softgel] 1 cap PO BID Nitroglycerin 0.4 mg SL DIRECTED PRN PRN Reason: Chest Pain Cyanocobalamin (Vitamin B-12) [Vitamin B-12] 1,000 mcg PO DAILY Metoprolol Tartrate [Lopressor] 50 mg PO BID Zinc Gluconate [Zinc] 50 mg PO BID Ascorbic Acid [Vitamin C] 1,000 mg PO DAILY tiZANidine [Zanaflex] 2 mg PO BID HYDROcodone/APAP 7.5-325MG [[place] 7.5-325] 1 tab PO Q8H PRN PRN Reason: Pain Loratadine-Pseudoeph 10-240 mg [Claritin-D 24 Hour] 1 tab PO HS Cholecalciferol (Vitamin D3) [Vitamin D3] 1,250 mcg PO DAILY Clopidogrel [Plavix] 75 mg PO DAILY #0 Discontinued hydroCHLOROthiazide 12.5 mg PO DAILY Losartan Potassium [Cozaar] 50 mg PO DAILY Discharge Medication List Aspirin EC [Ecotrin Low Dose] 81 mg PO DAILY 07/29/18 [History] Atorvastatin [Lipitor] 80 mg PO HS 07/29/18 [History] Fenofibrate [Lofibra] 160 mg PO DAILY 07/29/18 [History] [place]-3 Fatty Acids/Fish Oil [Fish Oil 1,000 mg Softgel] 1 cap PO BID 07/29/18 [History] PARoxetine [Paxil] 20 mg PO DAILY 07/29/18 [History] Cyanocobalamin (Vitamin B-12) [Vitamin B-12] 1,000 mcg PO DAILY 08/02/18 [History] Nitroglycerin 0.4 mg SL DIRECTED PRN 08/02/18 [History] Metoprolol Tartrate [Lopressor] 50 mg PO BID 07/17/20 [History] Ascorbic Acid [Vitamin C] 1,000 mg PO DAILY 10/07/22 [History] Zinc Gluconate [Zinc] 50 mg PO BID 10/07/22 [History] Cholecalciferol (Vitamin D3) [Vitamin D3] 1,250 mcg PO DAILY 05/02/23 [History] HYDROcodone/APAP 7.5-325MG [[place] 7.5-325] 1 tab PO Q8H PRN 05/02/23 [History] Loratadine-Pseudoeph 10-240 mg [Claritin-D 24 Hour] 1 tab PO HS 05/02/23 [History] tiZANidine [Zanaflex] 2 mg PO BID 05/02/23 [History] Clopidogrel [Plavix] 75 mg PO DAILY #0 05/03/23 [Rx] Losartan [Cozaar] 25 mg PO DAILY #30 tab 05/03/23 [Rx] traMADol HCL 50 mg PO QID #30 tab 05/03/23 [Rx] Follow up Appointment(s)/Referral(s): Karsten Brian MD [STAFF PHYSICIAN] - 6 Weeks None,Stated [Primary Care Provider] - 1-2 days Activity/Diet/Wound Care/Special Instructions: Ultram script escribed to the pharmacy Discharge Disposition: HOME WITH HOME HEALTH SERVICES
--- NOTE | 2023-05-03 12:40 | CA ---
Transthoracic Echo Report Name: Alexsander Zavala Age: 72 Gender: M : 1950 Exam Date: 05/03/2023 08:01 Exam Location: [facility] Ht (in): 69 Wt (lb): 232 Ordering Physician: Aisha Norman Attending/Referring Phys: [id number], [employer] Regional Consultant Justa Laura RDCS Procedure CPT: Indications: LVF Cardiac Hx: Technical Quality: Fair Contrast 1: Total Dose (mL): Contrast 2: Total Dose (mL): MEASUREMENTS (Male / Female) Normal Values 2D ECHO LV Diastolic Diameter PLAX 4.5 cm 4.2 - 5.9 / 3.9 - 5.3 cm LV Systolic Diameter PLAX 2.9 cm IVS Diastolic Thickness 1.3 cm 0.6 - 1.0 / 0.6 - 0.9 cm LVPW Diastolic Thickness 1.3 cm 0.6 - 1.0 / 0.6 - 0.9 cm LV Relative Wall Thickness 0.6 RV Internal Dim ED PLAX 3.7 cm LVOT Diameter 2.5 cm LA Systolic Diameter LX 3.9 cm 3.0 - 4.0 / 2.7 - 3.8 cm LV Diastolic Volume MOD BP 100.3 cm??? 67 - 155 / 56 - 104 cm??? LV Systolic Volume MOD BP 41.7 cm??? - 58 / 19 - 49 cm??? LV Ejection Fraction MOD BP 58.4 % >= 55 % LV Cardiac Index MOD BP 1680.8 cm???/min???m??? LV Diastolic Volume MOD 4C 93.5 cm??? LV Systolic Volume MOD 4C 53.9 cm??? LV Ejection Fraction MOD 4C 42.3 % LV Cardiac Index MOD 4C 1133.4 cm???/min???m??? LV Diastolic Length 4C 7.6 cm LV Systolic Length 4C 7.1 cm LV Diastolic Volume MOD 2C 105.0 cm??? LV Systolic Volume MOD 2C 34.3 cm??? LV Ejection Fraction MOD 2C 67.3 % LV Cardiac Index MOD 2C 2026.7 cm???/min???m??? LV Diastolic Length 2C 8.2 cm LV Systolic Length 2C 7.1 cm LA Volume 58.0 cm??? 18 - 58 / 22 - 52 cm??? LA Volume Index 25.2 cm???/m??? 16 - 28 cm???/m??? M-MODE Aortic Root Diameter MM 3.7 cm MV E Point Septal Separation 1.0 cm AV Cusp Separation MM 1.8 cm DOPPLER MV Area PHT 4.1 cm??? Mitral E Point Velocity 68.4 cm/s Mitral A Point Velocity 115.2 cm/s Mitral E to A Ratio 0.6 MV Deceleration Time 182.9 ms MV E' Velocity 5.8 cm/s Mitral E to MV E' Ratio 11.9 TR Peak Velocity 274.1 cm/s TR Peak Gradient 30.0 mmHg Right Ventricular Systolic Press 34.3 mmHg FINDINGS Left Ventricle Left ventricular ejection fraction is estimated at 45-50 %. Inferior and inferoseptal hypokinesis. Left ventricular cavity size normal. Mild concentric left ventricular hypertrophy. Right Ventricle Mild right ventricular dilatation. Right Atrium Normal right atrial size. Left Atrium Mildly increased left atrial area. Mitral Valve Structurally normal mitral valve. Mild mitral regurgitation.mitral valve thickened. Aortic Valve Trileaflet aortic valve. No aortic valve stenosis or regurgitation. Focal thickening of the aortic valve cusps. Tricuspid Valve Structurally normal tricuspid valve. Mild tricuspid regurgitation. Pulmonic Valve Structurally normal pulmonic valve. Trace pulmonic regurgitation. Pericardium No pericardial effusion. Aorta Normal size aortic root and proximal ascending aorta. CONCLUSIONS 1. Mildly impaired left ventricular systolic function 2. Mild mitral and tricuspid regurgitation Previewed by: Dr. Mayo Thakur MD (Electronically Signed) Final Date: 03 May 2023 12:39
[2023-05-03 14:59] VITALS: BP 169/85; PULSE 60; RESP 16; TEMP 98.1
[2023-05-04] MEDS ORDERED: ASPIRIN 81 MG PO SCH (09:00)
== END 2023-05-03 15:17 | disposition home health service (06) ==
LOC: EC 13:03 → 6NMEDSUR 16:47
PROVIDERS: ADMIT Internal Medicine; ATTEND Internal Medicine
DX: R55 Syncope and collapse (principal); N17.9 Acute kidney failure, unspecified; I48.91 Unspecified atrial fibrillation; I25.10 Atherosclerotic heart disease of native coronary artery without angina pectoris; E78.5 Hyperlipidemia, unspecified; I10 Essential (primary) hypertension; I25.2 Old myocardial infarction; F41.9 Anxiety disorder, unspecified; G47.33 Obstructive sleep apnea (adult) (pediatric); G89.29 Other chronic pain; M54.9 Dorsalgia, unspecified; E86.0 Dehydration; D72.829 Elevated white blood cell count, unspecified; E66.3 Overweight; Z68.34 Body mass index [BMI] 34.0-34.9, adult; Z95.5 Presence of coronary angioplasty implant and graft; Z87.891 Personal history of nicotine dependence; Z79.02 Long term (current) use of antithrombotics/antiplatelets; Z79.82 Long term (current) use of aspirin; Z79.899 Other long term (current) drug therapy; Z82.49 Family history of ischemic heart disease and other diseases of the circulatory system
CPT/HCPCS: 99285; 36415; 93005; 93306; 93270; 80053; 80048; 84484; 85025; 85610; 85730; 81003; 72125; 70450; G0378 ×2

== ENCOUNTER → 2023-08-06 | Outpatient (CLI) | payer BC, MEDICARE ==
--- NOTE | 2023-08-06 13:58 | XR ---
EXAMINATION TYPE: XR chest 2V DATE OF EXAM: 08/06/2023 COMPARISON: 10/07/2022 HISTORY: Shortness of breath TECHNIQUE: Frontal and lateral views of the chest are obtained. FINDINGS: Scattered senescent parenchymal changes noted. No evidence for infiltrate. No evidence for atelectasis. Heart size is stable. Mediastinal structures are stable and grossly unremarkable. No evidence for hilar prominence. Degenerative changes dorsal spine. IMPRESSION: 1. No evidence for acute pulmonary disease.
[2023-08-06 14:50] LABS: Partial Thromboplastin Time 23.3 sec (22.0-30.0)
[2023-08-06 18:19] LABS: Prothrombin Time 10.9 sec (10.0-12.5)
[2023-08-06 20:14] LABS: BUN/Creat Ratio 14.75 Ratio (12.00-20.00); Blood Urea Nitrogen 17.7 mg/dL (9.0-27.0); Calcium 9.3 mg/dL (8.7-10.3); Carbon Dioxide 31.3 mmol/L (21.6-31.8); Chloride 104 mmol/L (96-109); Glucose 95 mg/dL (70-110); Potassium 4.7 mmol/L (3.5-5.5); Sodium 144 mmol/L (135-145)
[2023-08-06 21:03] LABS: Eosinophils # (A) 0.65 X 10*3/uL (0.04-0.35); Eosinophils % (A) 6.3 %; HCT 43.8 % (39.6-50.0); HGB 14.2 g/dL (13.0-17.0); Lymphocytes # (A) 2.81 X 10*3/uL (0.90-5.00); Lymphocytes % (A) 27.1 %; MCH 32.1 pg (27.0-32.0); MCHC 32.4 g/dL (32.0-37.0); MCV 99.1 FL (80.0-97.0); Mean Platelet Volume 10.1 FL (9.5-12.2); Monocytes # (A) 1.16 X 10*3/uL (0.20-1.00); Monocytes % (A) 11.2 %; NRBC Per 100 WBC 0 X 10*3/uL (0.00-0.01); Neutrophils # (A) 5.58 X 10*3/uL (1.80-7.70); Neutrophils % (A) 53.9 %; Platelet Count 314 X 10*3/uL (140-440); RBC 4.42 X 10*6/uL (4.40-5.60); RDW 13.5 % (11.5-14.5); WBC 10.35 X 10*3/uL (4.50-10.00)
[2023-08-06 21:53] LABS: Appearance,Urine Clear (Clear); Bilirubin,Urine Negative (Negative); Blood,Urine Negative (Negative); Color,Urine Yellow (Yellow); Ketones,Urine Trace (Negative); Nitrite,Urine Negative (Negative); Specific Gravity,Urine 1.021 (1.001-1.030)
[2023-08-06 22:10] LABS: Bacteria,Urine None Seen (None Seen); Calcium Oxalate Crystals,Urine Present (None Seen)
== END | disposition home or self-care (01) ==
LOC: LABPAT 13:11
PROVIDERS: ATTEND Orthopaedic Surgery Orthopaedic Surgery of the Spine
DX: Z01.812 Encounter for preprocedural laboratory examination (principal); M48.02 Spinal stenosis, cervical region; R06.02 Shortness of breath
CPT/HCPCS: 36415; 71046; 80048; 81001; 85025; 85610; 85730; 86850; 86900; 86901; 87070

== ENCOUNTER 2023-08-15 05:38 | Inpatient (IN) | payer MEDICARE, BC ==
[2023-08-08 11:44] VITALS: BMI 34.0
[~2023-08-15 05:38] MED LIST changes: -HYDROmorphone 0.5 MG/0.5 ML SYRINGE IVP PRN; -LACTATED RINGERS 1,000 ML IV SCH; -ONDANSETRON 4 MG/2 ML VIAL IVP PRN; +ceFAZolin 1,000 MG in SODIUM CHLORIDE 0.9% IRRIGATIO 1,000 ML IRRIGATION PRN
[2023-08-15] MEDS: LACTATED RINGERS 1,000 ML IV SCH (06:24)
[2023-08-15] MEDS ORDERED: HYDROmorphone 0.5 MG/0.5 ML SYRINGE IVP PRN (07:00)
[2023-08-15] MEDS: ONDANSETRON 4 MG/2 ML VIAL IVP ONE (07:13)
[2023-08-15] MEDS ORDERED: TRANEXAMIC 1,000 MG/100ML-NACL 1,000 MG in SALINE 1 100ML.BAG IVPB PRN (07:19)
[2023-08-15] MEDS ORDERED: MIDAZOLAM 2 MG/2 ML VIAL ONE (07:20)
[2023-08-15] MEDS ORDERED: ALBUMIN HUMAN 5% (12.5gm) 250 ML BOTTLE IVPB ONE (07:20)
[2023-08-15] MEDS ORDERED: FUROSEMIDE 10 MG/ML 2 ML VIAL ONE (07:20)
[2023-08-15] MEDS ORDERED: SUCCINYLCHOLINE CHLORIDE 200 MG/10 ML VIAL IV ONE (07:20)
[2023-08-15] MEDS ORDERED: KETAMINE HCL IN 0.9 % NACL 50 MG/5 ML SYRINGE ONE (07:20)
[2023-08-15] MEDS ORDERED: PHENYLEPHRINE-0.9% NACL SYG 1,000 MCG/10 ML SYRINGE ONE (07:20)
[2023-08-15] MEDS ORDERED: HYDROmorphone (PF) 1 MG/ML ONE (07:20)
[2023-08-15] MEDS ORDERED: PHENYLEPHRINE 10 MG/ML VIAL ONE (07:20)
[2023-08-15] MEDS ORDERED: ROCURONIUM 10 MG/ML (5 ML VIAL) IV ONE (07:20)
[2023-08-15] MEDS ORDERED: ePHEDrine 50 MG/ML 1 ML VIAL ONE (07:20)
[2023-08-15] MEDS ORDERED: TRANEXAMIC 1,000 MG/100ML-NACL PREMIX BAG ONE (07:20)
[2023-08-15] MEDS ORDERED: fentaNYL (PF) 50 MCG/ML 2 ML AMP ONE (07:20)
[2023-08-15] MEDS ORDERED: PROPOFOL 10 MG/ML 20 ML VIAL IV ONE (07:20)
[2023-08-15] MEDS: LIDOCAINE 0.5%-EPI 1:200,000 50 ML VIAL SQ ONE (07:29)
[2023-08-15] MEDS: GELATIN SPONGE,ABSORB (LARGE) 1 EACH SPONGE TOPICAL ONE (07:29)
[2023-08-15] MEDS: THROMBIN (BOVINE) 5,000 UNIT VIAL TOPICAL ONE (07:29)
[2023-08-15] MEDS: ceFAZolin 1,000 MG in SODIUM CHLORIDE 0.9% IRRIGATIO 1,000 ML IRRIGATION PRN (07:29)
[2023-08-15] MEDS: LACTATED RINGERS 1,000 ML IV ONE (09:26)
[2023-08-15] MEDS ORDERED: SENNOSIDES-DOCUSATE SODIUM 1 EACH TAB PO PRN (13:14)
[2023-08-15] MEDS ORDERED: BENZOCAINE/MENTHOL LOZENG 1 EACH LOZENGE MUCOUS MEM PRN (13:14)
[2023-08-15] MEDS ORDERED: MAGNESIUM HYDROXIDE 2,400 MG/30 ML CUP PO PRN (13:14)
[2023-08-15] MEDS ORDERED: ONDANSETRON 4 MG/2 ML VIAL IVP PRN (13:14)
[2023-08-15] MEDS ORDERED: ACETAMINOPHEN TAB 325 MG TAB PO PRN (13:14)
[2023-08-15] MEDS ORDERED: NITROGLYCERIN SL TABS 0.4 MG TAB SUBLINGUAL PRN (13:22)
--- NOTE | 2023-08-15 13:34 | P.OP ---
Date of Procedure: 08/15/23 Preoperative Diagnosis: Recurrent stenosis L2-3 L3-4 L4-5, lower extremity radiculopathy, herniated nucleus pulposus L2-3 L3-4 L4-5, history of prior laminectomy L2-3 L3-4 L4-5, degenerative disc disease, spondylolisthesis, Postoperative Diagnosis: Same Anesthesia: GETA Pathology: none sent Condition: stable Disposition: PACU Description of Procedure: DESCRIPTION OF PROCEDURE(S): BRIEF OPERATIVE NOTE Preoperative Diagnosis: Recurrent stenosis L2-3 L3-4 L4-5, lower extremity radiculopathy, herniated nucleus pulposus L2-3 L3-4 L4-5, history of prior laminectomy L2-3 L3-4 L4-5, degenerative disc disease, spondylolisthesis, Postoperative Diagnosis: Same Procedure: Revision laminectomy and decompression L2-3 L3-4 L4-5 with revision laminectomy and partial medial facetectomy and foraminotomies Decompressive discectomy L2-3 L3-4 L4-[address] navigation aided Posterior lateral decompression and fusion Transforaminal lumbar interbody fusion for a 360 fusion L2-3 L3-4 L4-5 Placement of interbody graft L2-3 L3-4 L4-5 for fusion Use of computer navigation for fusion Local autogenous bone grafting Use of bone graft extenders Surgeon: Dr. Guajardo Glove Former: Idris CURRAN who is present throughout the entire the case pe rsistence during positioning, dissection, exposure, visualization, and all crucial elements of the case as well as closure. Anesthesia: General anesthesia Estimated blood loss: Approximately 250 mL Complications: None apparent Components implanted: K2M minimally invasive [place] pedicle screw system withscrews measuring 6.5 mm in diameter x 8 to rods, 3 [place] interbody cages with 10 mL of osteo amp bio4 bone graft substitute and 30 mL of the BX bone fibers to supplement the local autogenous bone graft and bone marrow aspirate Disposition: To recovery room in good stable condition. OPERATIVE INDICATIONS The patient is a very pleasant 73-year-old man who has had long history of lumbar issues. In the past he has undergone decompression laminectomy at L2-3 L3-4 and prior to that L4-5. He had initially done well with this however over the past few years has been developing further pain at his back with lower extremity radiculopathy. He was having significant new symptoms over the past couple of months and was found to have evidence of new disc herniations at L2-3 and L3-4 on the right and L4-5 on the left. He was having bilateral symptoms and his symptoms correlated well with his changes at his lumbar spine. He had gone through significant conservative treatment however was not having present long-term benefit despite aggressive conservative care. We felt that he could h ave significant benefit with surgical intervention. The patient has had severe issues at their lower extremity in her lower back over the past several years with significant worsening over the past several months. Over the past few months the patient had pain at their back and their lower extremities. The patient is having severe radicular symptoms at their lower extremity with weakness. The patient is having significant pain in their back. They are unable to obtain any comfort. We did aggressive conservative treatment with medications therapy and interventional pain management however thery were not having any relief. The patient also showed evidence of a listhesis with some dynamic instability. The patient has been through conservative treatment. We discussed various treatment options including surgery, and the patient wishes to proceed with surgery We discussed the risk, patient's alternatives and benefits of surgery including but not limited to, risk of bleeding risk of infection, risk of need for further surgery, risk of decreased, loss of motion, muscle function, malunion nonunion, hardware failure, nerve damage, paralysis, heart attack, blindness and . They understood issues with the current pandemic and the possibility of exposure. OPERATIVE SUMMARY After discussing all the risks, patient alternatives and benefits at length, the patient elected to proceed with surgical intervention, signed informed consent, and presented for their procedure. The patient was seen and examined in the preoperative holding area and the surgical site was marked. The patient was given antibiotics and brought to the operating room. The patient was sedated and intubated by anesthesia in standard fashion. The patient was positioned on to the operating room table in a prone position on the appropriate frame which was well-padded and well molded. We were careful to pad any bony prominences and pressure points. We were careful to maintain the patient's cervical spine and good neutral alignment and position throughout. The patient was prepped and draped in a normal standard fashion. An appropriate timeout and keystone protocol performed. We were able to proceed with the surgery. The local wound area was infiltrated with local anesthetic. Utilizing the midline incision over his prior scar I was able to extend the incision cephalad and caudad. I was able to expose the spinous process at L2 and at L5. There is significant scar tissue formation and I was careful to dissect over this. I was able expose over the facet joints L2-3 L3-4 L4-5 and down to the transverse processes at each level. There is severe facet arthrosis at each level. There is significant osteophyte formation and evidence of prior laminectomy. I was able place the computer referencing device over the spinous process of L2 to establish an appropriate reference point for the Ziem CT navigation. We then were able to place patient in an appropriate drape and do a navigation spin for visualization and 3-D reconstruction of the lumbar spine. I was able utilize C-arm guidance and navigation to establish appropriate position over the pedicles bilaterally at the appropriate levels from L2-L5. With the appropriate levels confirmed was able to make small incisions over the appropriate pedicle sites bilaterally. Utilizing the computer navigation device as well as direct visualization with the open approach, I was able to establish bony landmarks for a bony reference point for the navigation device. I was able to establish a Jamshidi needle over the lateral aspect of the pedicle and advanced the trocar into the pedicle being careful not to breech superiorly inferiorly medially or laterally using computer navigation device. Position was confirmed regularly with AP and lateral images on C-arm and with the computer navigation device at the appropriate levels at L2-L3-L4 and L5 bilaterally with navigation and visualization bilaterally. I was able to establish the trocar into the pedicle appropriately into the posterior aspect of the vertebral body bilaterally at the appropriate levels. This was done at each of the pedicle positions and each of the vertebrae. I was able place the guidewire into the trocar and into the vertebral body appropriately under C-arm guidance. Dissection was taken down over the wire to the appropriate starting position for the screw placed. The appropriate length screw was chosen, threaded over the guidewire and screwed appropriately into the pedicle and vertebral body under C- arm guidance in excellent alignment and position with good bony purchase. This is done at each of the screw sites at the appropriate levels at L2-L3-L4 and L5 bilaterally. With the screws intact I dissected down to establish access over the pars and lamina to the base of the spinous process. There is significant scar tissue formation and evidence of prior laminectomy and great care was taken to expose the lamina appropriately. The imaging showed obvious evidence of significant disc herniation to the right at L2-3 and L3-4 and L4-5 on the left. I was performing decompression and doing wide foraminotomy and facetectomy and it was obvious that there would be significant instability. On exposing the disc space there is significant disc loss at each level and near complete obliteration of the disc. I felt that he can do best with further stability with transforaminal interbody fusion for stability and improved graft service for fusion. I chose to do this at each level. I was able to expose the facet joint. The capsule t he facet was taken down and showed some facet arthrosis at the joint. I was able to use a combination of curettes and [place] rongeurs and a high-speed drill to take down the facet joint and do a facetectomy. I was able get excellent foraminal decompression and central decompression with undermining across midline to perform a laminectomy centrally and contralaterally. As able get good central decompression. The ligamentum flavum was taken down to further decompress centrally and at bilateral neural foramen. I was able to expose the disc space and visualize the traversing nerve root. Note was made of some disc protrusion and disc herniation that was abutting the traversing nerve root at the level causing further compression of the nerve root. I was able to establish a annulotomy at the appropriate level protecting soft tissue and neural structures. Note was made of some disc desiccation at the disc. I performed a complete discectomy with accommodation of curettes and rasps and scrapers. I was able get good endplate preparation at the disc space. I sized for the appropriate size interbody spacer protecting the soft tissue and neural structures. The wound was copiously irrigated and suctioned dry. There is no evidence of any dural tear or leak. I was able to pack the disc space with local autogenous bone graft as well as a small amount of bone graft which was also placed into the interbody cage itself. Protecting the soft tissue structures and neural structures I was able place the interbody cage in good alignment and good position with good fit and fill at the interbody space. Position was confirmed with C-arm guidance. This was done at each level first at L2-3 L3-4 then 4 5 Good hemostasis maintained. There is no evidence of any dural tear or leak. The wound was irrigated and suctioned dry. With the hardware intact, intraoperative C-arm imaging was again taken which showed good alignment and position of the hardware at the appropriate levels fr om L2-L5. We were then able to measure, contour and place the rods and appropriate hardware bilaterally. I was able to place capcrews, tighten them down, and torque them with the torque screwdriver appropriately. With this intact I was able to place the local autogenous bone graft with additional bone graft enhancer as necessary into the posterior lateral gutters over the decorticated transverse processes and facet joints bilaterally where still intact the remainder of the bone graft was placed over the facet joint on the contralateral side after taking down the facet joint capsule. With the bone graft intact, a stable construct, and good decompression at the appropriate levels, we were able to proceed with closure. Good hemostasis was maintained. There is no evidence of dural tear or leak. The fascia was closed for a watertight closure. he subcuticular tissue was closed with absorbable suture. The wound was cleaned and dried and dressed with the appropriate dressing. The drapes were broken down. The patient was gently rolled back onto their hospital bed being careful to maintain their cervical spine and good neutral alignment and position. They were woken up by anesthesia, extubated, and brought to the recovery room in good stable condition. The patient will be admitted to the hospital for appropriate postoperative care, medical management and monitoring. We will continue to follow them closely about the postoperative course.
[2023-08-15] MEDS: DEXAMETHASONE SOD PHOSPHATE 4 MG/ML 1 ML VIAL IV ONE (14:10)
--- NOTE | 2023-08-15 14:37 | FL ---
MRI EXAMINATION TYPE: FL guidance operating room, XR lumbar spine 2 or 3V Intraoperative/procedural fluor oscopic services were provided. Total fluoroscopy time is 25 seconds with images submitted to PACS. Scarlet coyle see the operative/procedural note for further details. DAP: 139 cGycm2
[2023-08-15] MEDS: SODIUM CHLORIDE 0.9% 1,000 ML IV SCH (14:43)
[2023-08-15] MEDS: HYDROcodone/APAP 7.5-325MG 1 EACH TAB PO PRN (14:55)
[2023-08-15] MEDS: HYDROmorphone 1 MG/ML 1 ML SYRINGE IVP PRN ×2 (15:57→21:19)
[2023-08-15] MEDS: ZINC SULFATE 220 MG CAP PO SCH (20:29)
[2023-08-15] MEDS: tiZANidine 4 MG TAB PO SCH (20:29)
[2023-08-15] MEDS: METOPROLOL TARTRATE 50 MG TAB PO SCH (20:30)
[2023-08-15] MEDS: LORATADINE-PSEUDOEPH 5-120 MG 1 EACH TAB.ER.12H PO SCH (20:30)
[2023-08-15] MEDS: CYCLOBENZAPRINE 10 MG TAB PO PRN (20:30)
[2023-08-15] MEDS: ATORVASTATIN 80 MG TAB PO SCH (20:30)
[2023-08-15] MEDS ORDERED: NON FORMULARY DRUG (Fish Oil/Dha/Epa [Fish Oil 1,200 Mg Fish Oil] 1 EACH Capsule) PO SCH (21:00)
[2023-08-15] MEDS: HYDROcodone/APAP 5-325MG 1 EACH TAB PO PRN (23:40)
[2023-08-16] MEDS: diazePAM 5 MG TAB PO PRN (02:03)
[2023-08-16] MEDS: HYDROcodone/APAP 7.5-325MG 1 EACH TAB PO PRN (05:48)
--- NOTE | 2023-08-16 08:44 | P.PN ---
Progress Note - Text Progress Note Date: 08/16/23 Postoperative day #1 Patient is seen and examined today at bedside. The patient has some pain around the surgical site as expected. Pain is being controlled with medication. He has been tolerating his regular diet. He still has a Barnes intact. Physical Exam Afebrile with stable vital signs Abdomen is soft nontender. Chest has good excursion deep and space expiration The incision site is clean dry and intact. No erythema there is no purulence. Dressings are intact Extremities have not had neurologic change from prior to surgery. He has sustained dorsiflexion plantarflexion EHL intact. Calves and thighs were soft nontender without evidence of DVT. Assessment/Plan Postoperative day status post open revision decompression L2-L5 with fusion L2- L5 for his severe spinal stenosis with lower extreme radiculopathy Patient is progressing as expected from the surgery. Will try to increase the frequency of his oral pain medications and decrease the frequency of his IV medications if he is able We will continue to increase the patient's mobilization with therapy. Will get him up out of bed today Will discontinue the Barnes today and hopefully he will be able to urinate on his own. We will continue pain control with oral or IV medications. He is likely to gain another couple of days in the hospital before he strong enough to mobilize on his own to be ready for home . we'll continue to follow patient closely.
[2023-08-16] MEDS: CLOPIDOGREL 75 MG TAB PO SCH (08:54)
[2023-08-16] MEDS: PARoxetine 20 MG TAB PO SCH (08:54)
[2023-08-16] MEDS: ASCORBIC ACID 500 MG TAB PO SCH (08:54)
[2023-08-16] MEDS: CYANOCOBALAMIN 500 MCG TAB PO SCH (08:54)
[2023-08-16] MEDS: CHOLECALCIFEROL 125 MCG (5000 IU) TABLET PO SCH (08:54)
[2023-08-16] MEDS: ASPIRIN 81 MG PO SCH (08:55)
[2023-08-16] MEDS: SENNOSIDES-DOCUSATE SODIUM 1 EACH TAB PO SCH (08:55)
[2023-08-16] MEDS: LOSARTAN 25 MG TAB PO SCH (08:55)
[2023-08-16] MEDS: FENOFIBRATE 160 MG TAB PO SCH (08:55)
[2023-08-16] MEDS: HYDROmorphone 0.5 MG/0.5 ML SYRINGE IVP PRN (09:11)
[2023-08-16 10:23] LABS: HCT 35.4 % (39.6-50.0); HGB 11.7 g/dL (13.0-17.0); MCH 32.1 pg (27.0-32.0); MCHC 33.1 g/dL (32.0-37.0); Mean Platelet Volume 9.4 FL (9.5-12.2); NRBC Per 100 WBC 0 X 10*3/uL (0.00-0.01); Platelet Count 174 X 10*3/uL (140-440); RBC 3.65 X 10*6/uL (4.40-5.60); RDW 13.6 % (11.5-14.5); WBC 17.21 X 10*3/uL (4.50-10.00)
[2023-08-16 10:41] LABS: BUN/Creat Ratio 9.36 Ratio (12.00-20.00); Blood Urea Nitrogen 10.3 mg/dL (9.0-27.0); Calcium 8.6 mg/dL (8.7-10.3); Carbon Dioxide 28.3 mmol/L (21.6-31.8); Chloride 100 mmol/L (96-109); Glucose 137 mg/dL (70-110); Potassium 4.2 mmol/L (3.5-5.5); Sodium 137 mmol/L (135-145)
[2023-08-16 11:22] LABS: Basophils # (A) 0.08 X 10*3/uL (0.00-0.10); Basophils % (A) 0.5 %; Eosinophils # (A) 0.28 X 10*3/uL (0.04-0.35); Eosinophils % (A) 1.6 %; Lymphocytes # (A) 1.31 X 10*3/uL (0.90-5.00); Lymphocytes % (A) 7.6 %; Monocytes # (A) 1.87 X 10*3/uL (0.20-1.00); Monocytes % (A) 10.9 %; Neutrophils # (A) 13.58 X 10*3/uL (1.80-7.70); Neutrophils % (A) 78.9 %; RBC Morphology Normal (Normal)
--- NOTE | 2023-08-16 12:15 | P.CONS ---
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 Guajardo and he was admitted to the hospital I was asked to see the patient for postoperative medical management. REVIEW OF SYSTEMS: Constitutional: No documented fever, no chills, no night sweats. No weight change. No weakness, fatigue or lethargy. No daytime sleepiness. EENT: No headache. No blurred vision or double vision, no loss of vision. No loss of Hearing, no ringing in the ears, no dizziness. No nasal drainage or congestion. No epistaxis. No sore throat. Lungs: No shortness of breath, no cough, no sputum production. No wheezing. Reports dyspnea with activity. Cardiovascular: No chest pain, no lower extremity edema. No palpitations. No paroxysmal nocturnal dyspnea. No orthopnea. No lightheadedness or dizziness. No syncopal episodes. Abdominal: Reports abdominal pain. No nausea, vomiting. No diarrhea. No constipation. No bloody or tarry stools reports loss of appetite. Genitourinary: No dysuria, increased frequency, urgency. No urinary retention, lama catheter is in Musculoskeletal: No myalgias. No muscle weakness, no gait dysfunction, no frequent falls. positive for back pain. No neck pain. Integumentary: back wound is clean with drain , no lesions. No rash or pruri tus. No unusual bruising. No change in hair or nails. Neurologic: No aphasia. No facial droop. No change in mentation. No head injury. No headache. No paralysis. No paresthesia. Psychiatric: No depression. No anxiety. No mood swings. Endocrine: No abnormal blood sugars. No weight change. PAST MEDICAL HISTORY: Coronary artery disease status post PCI with multiple stents Hypertension and hypertensive cardiovascular disease. Hyperlipidemia. Enlarged prostate. Depression. Spondylolisthesis of the lumbar spine with radiculopathy. PAST SURGICAL HISTORY: Revision laminectomy L2-L3 L3-L4 L4-L5 with partial medial facetectomy and foraminotomies History of laminectomy of L2-L3 L3-L4 L4-L5 Laparoscopic cholecystectomy with umbilical hernia repair on February 18, 2013 Bilateral inguinal hernia repair 1995 Bilateral cataract surgery 2013 Left hip replacement 04/21/2019 Left heart catheterization with PCI of the RCA 07/20/2017 Left heart catheterization with PCI of the LAD 06/27/2017 Left heart catheterization with PCI of the LAD 04/18/2011 Colonoscopy 06/08/2014 Radiofrequency ablation right and left side medial branch L2-L3 L3-L4 L4-L5 and L5 and S1 SOCIAL HISTORY: Patient used to smoke about a pack every day since the age of 16 and quit in 1984, patient drinks 1 to 2 cup of coffee every day, he drinks socially, FAMILY HISTORY: Father at the age of 72 from [place] and had CABG x 3 with redo mother at age of 90 from old age and had CABG x 1 patient has a brother 63-year-old alive with aortic valve replacement and mitral valve repair along with CABG x 2 he also had history of diabetes. Patient has 1 sister 68-year-old with melanoma and had CAD patient has 1 son 45-year-old is 100% disability from the [employer] 2 daughters alive and well. PHYSICAL EXAMINATION: General: 73-year-old male laying down in bed in minimal distress. HEENT: Head is atraumatic, normocephalic, pupils were equal round reactive to light and recommendation, extraocular muscle movement were intact, sclera nonicteric, conjunctivae were pale, mucous membranes of the mouth are somewhat dry. Neck: Supple, no JVP, normal carotid upstroke bilaterally, no lymphadenopathy. Chest: Decreased breath sounds at the bases, few rhonchi, no expiratory wheezes, no chest wall tenderness, no intercostal retractions. Heart: First heart sound is normal, second heart sounds normal there is systolic ejection murmur 2/6 located in the left sternal border. Abdomen: Soft, nontender, nondistended, positive bowel sounds. Extremities: There is no edema no calf tenderness DP +2 bilaterally. Neurologic examination: Patient is awake alert and oriented x3, cranial nerves II-12 appear grossly intact, muscle power were 5 out of 5 in upper extremities and 4 out of 5 in bilateral lower extremities, deep tendon reflexes normal bilaterally. ASSESSMENT AND PLAN: 1. Postoperative day #0 status post revision laminectomy of L2-L3 L3-L4 L4-L5 with medial facetectomy and foraminotomies. Continue current pain management as outlined by spine surgery, continue and encourage the use of incentive spirometer to reduce the incidence of atelectasis and healthcare associated pneumonia, early ambulation as indicated, continue to monitor the patient very closely during his hospital stay. 2. Hypertension and hypertensive cardiovascular disease. Continue patient on losartan 25 mg orally once every day, continue metoprolol 50 mg orally twice every day, monitor the patient blood pressure very closely. 3. Mixed hyperlipidemia. Continue patient on atorvastatin 80 mg once every day, monitor the patient lipid panel, keep LDL 55-70. 4. History of coronary artery disease status post multiple PCI. Continue patient on metoprolol 50 mg orally twice a day as well as atorvastatin 80 mg once every day, continue aspirin 81 mg once a day, Plavix 75 mg once every day. 5. Enlarged prostate. Monitor for urinary retention. 6. Depression. Continue paroxetine 20 mg once every day. 7. Spondylolisthesis of the lumbar spine with radiculopathy postsurgical intervention continue current pain management. 8. DVT prophylaxis. Continue bilateral knee-high JESSI hose as well as bilateral SCDs. Early ambulation. 9. GI prophylaxis. Continue patient on Protonix 40 mg once every day. 10. Thank you Dr. Guajardo for the consult we will continue to follow the patient along with you. 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 cath with 2 stents Past Anesthesia/Blood Transfusion Reactions: No Reported Reaction Additional Past Anesthesia/Blood Transfusion Reaction / Comm: no hx blood transfusion Date of Last Stent Placement:: 2016 Past Psychological History: Anxiety Additional Psychological History / Comment(s): pt lives with his , is independant. 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 Smoking Status: Former smoker Past Alcohol Use History: Rare Additional Past Alcohol Use History / Comment(s): quit smoking 1984, started smoking age 17, smoked 18 yrs Past Drug Use History: None Reported - Past Family History Mother Family Medical History: Coronary Artery Disease (CAD) Additional Family Medical History / Comment(s): stents, cabg Father Family Medical History: Coronary Artery Disease (CAD), Vascular Disorder Additional Family Medical History / Comment(s): cabg Medications and Allergies Home Medications Medication Instructions Recorded Confirmed Type Aspirin EC [Ecotrin Low Dose] 81 mg PO QAM 07/29/18 08/15/23 History Atorvastatin [Lipitor] 80 mg PO HS 07/29/18 08/15/23 History Fenofibrate [Lofibra] 160 mg PO DAILY 07/29/18 08/15/23 History PARoxetine [Paxil] 20 mg PO QAM 07/29/18 08/15/23 History Cyanocobalamin (Vitamin B-12) 1,000 mcg PO DAILY 08/02/18 08/15/23 History [Vitamin B-12] Nitroglycerin 0.4 mg SL DIRECTED PRN 08/02/18 08/15/23 History Metoprolol Tartrate [Lopressor] 50 mg PO BID 07/17/20 08/15/23 History Ascorbic Acid [Vitamin C] 1,000 mg PO DAILY 10/07/22 08/15/23 History Zinc Gluconate [Zinc] 50 mg PO BID 10/07/22 08/15/23 History Cholecalciferol (Vitamin D3) 125 mcg PO DAILY 05/02/23 08/15/23 History [Vitamin D3 (1250 Mcg = 50,000 Iu)] HYDROcodone/APAP 7.5-325MG [[place] 1 tab PO Q8H PRN 05/02/23 08/15/23 History 7.5-325] Loratadine-Pseudoeph 10-240 mg 1 tab PO HS 05/02/23 08/15/23 History [Claritin-D 24 Hour] tiZANidine [Zanaflex] 2 mg PO BID 05/02/23 08/15/23 History Clopidogrel [Plavix] 75 mg PO DAILY #0 05/03/23 08/15/23 Rx Fish Oil/Dha/Epa [Fish Oil 1,200 1 each PO BID 08/08/23 08/15/23 History mg Fish Oil] Losartan [Cozaar] 25 mg PO QAM 08/08/23 08/15/23 History Allergies Allergy/AdvReac Type Severity Reaction Status Date / Time No Known Allergies Allergy Verified 08/15/23 06:32 Physical Exam Vitals: Vital Signs Temp Pulse Pulse Resp BP BP Pulse Ox 08/15/23 15:45 62 168/98 99 08/15/23 15:30 66 165/82 08/15/23 15:15 63 175/81 98 08/15/23 15:00 62 168/80 98 08/15/23 14:45 63 146/79 98 08/15/23 14:30 97.6 F 63 18 162/82 96 08/15/23 14:07 66 16 155/70 100 08/15/23 13:52 62 16 157/76 99 08/15/23 13:37 64 16 150/68 100 08/15/23 13:22 64 16 132/70 100 08/15/23 13:07 97.0 F L 64 16 128/64 99 08/15/23 06:39 97.8 F 109 H 20 166/76 97 Intake and Output 08/15/23 08/15/23 08/15/23 06:59 14:59 22:59 Intake Total 100 2051 Output Total 570 Balance 100 1481 Intake: IV 100 2050 Output: Urine 220 Estimated Blood Loss 350 Other: Weight 107.2 kg 107.2 kg Results CBC & Chem 7: 08/16/23 07:29 08/16/23 07:29
[2023-08-16] MEDS: polyethylene glycoL 3350 17 GM POWD.PACK PO SCH (13:58)
--- NOTE | 2023-08-17 10:32 | P.PN ---
Subjective Progress Note Date: 08/17/23 Principal diagnosis: Status post Revision laminectomy and decompression L2-3 L3-4 L4-5 with revision laminectomy and partial medial facetectomy and foraminotomies Decompressive discectomy L2-3 L3-4 L4-5 with lumbar interbody fusion. This is a 73-year-old male who is postoperative day #2 status post revision laminectomy with decompression and interbody fusion L2-5. The patient is doing fairly well from an orthopedic standpoint. He has been up to the bathroom with his walker and one person assist. He has had 100 mL out of his Hemovac drain since last evening. Vital signs are stable. He complains of no nausea, vomiting or diarrhea. Objective - Vital Signs Vital signs: Vital Signs Temp 97.4 F L 08/17/23 07:31 Pulse 76 08/17/23 07:31 Resp 20 08/17/23 07:31 BP 129/64 08/17/23 07:31 Pulse Ox 91 L 08/17/23 07:31 FiO2 Intake & Output 08/16/23 08/17/23 08/17/23 18:59 06:59 18:59 Output Total 1060 100 Balance -1060 -100 Output: Drainage 60 100 Back 60 100 Urine 1000 Other: Voiding Method Indwelling Catheter Toilet Toilet # Voids 4 2 - Exam This is a pleasant 73-year-old male in no acute distress. He is alert and oriented 3. Exam of the lumbar spine reveals that his dressing is clean, dry and intact. There is minimal soft tissue swelling. No erythema. Hemovac drain is in place. Exam of the lower extremities reveals no obvious deformities. There are no neuro deficits. The patient can lift each leg off the bed independently. He has full foot and ankle motion without difficulty or pain. Neurovascular status to the lower extremities is intact. - Labs CBC & Chem 7: 08/16/23 07:29 08/16/23 07:29 Labs: Abnormal Lab Results - Last 24 Hours (Table) 08/16/23 08/16/23 Range/Units 07:29 07:29 Immature Gran # 0.09 H (0.00-0.04) X 10*3/uL Neutrophils # 13.58 H (1.80-7.70) X 10*3/uL Monocytes # 1.87 H (0.20-1.00) X 10*3/uL BUN/Creatinine Ratio 9.36 L (12.00-20.00) Ratio Glucose 137 H (70-110) mg/dL Calcium 8.6 L (8.7-10.3) mg/dL Assessment and Plan (1) Status post lumbar spinal fusion Current Visit: Yes Status: Acute Code(s): Z98.1 - ARTHRODESIS STATUS SNOMED Code(s): 92397402462375 (2) S/P total hip arthroplasty Current Visit: No Status: Acute Code(s): Z96.649 - PRESENCE OF UNSPECIFIED ARTIFICIAL HIP JOINT SNOMED Code(s): 672580358889 Plan: The clinical findings are discussed with the patient. I will leave his Hemovac drain in for now. I will call nursing later on today. If there is minimal drainage we will pull the Hemovac at that time. Continue current care and physical therapy.
--- NOTE | 2023-08-17 15:12 | P.PN ---
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 Guajardo and he was admitted to the hospital I was asked to see the patient for postoperative medical management. 08/16: Patient is laying down in bed in no apparent distress, he stated that the pain is better today, he continues to have increased bloating, he is passing gas, he is urinating, he denies any headache at this point in time, he denies any numbness, he seems to be ambulating better, using the walker, he he was seen earlier by Dr. Mccarthy, continue current treatment plan, continue pain management, continue with physical therapy, we will follow-up with the patient very closely. REVIEW OF SYSTEMS: Constitutional: No documented fever, no chills, no night sweats. No weight change. No weakness, fatigue or lethargy. No daytime sleepiness. EENT: No headache. No blurred vision or double vision, no loss of vision. No loss of Hearing, no ringing in the ears, no dizziness. No nasal drainage or congestion. No epistaxis. No sore throat. Lungs: No shortness of breath, no cough, no sputum production. No wheezing. Reports dyspnea with activity. Cardiovascular: No chest pain, no lower extremity edema. No palpitations. No paroxysmal nocturnal dyspnea. No orthopnea. No lightheadedness or dizziness. No syncopal episodes. Abdominal: Reports abdominal pain. No nausea, vomiting. No diarrhea. No cons tipation. No bloody or tarry stools reports loss of appetite. Genitourinary: No dysuria, increased frequency, urgency. No urinary retention. Musculoskeletal: No myalgias. No muscle weakness, no gait dysfunction, no frequent falls. positive for back pain. No neck pain. Integumentary: wound is clean and drain in place no lesions. No rash or pruritus. No unusual bruising. No change in hair or nails. Neurologic: No aphasia. No facial droop. No change in mentation. No head injury. No headache. No paralysis. No paresthesia. Psychiatric: No depression. No anxiety. No mood swings. Endocrine: No abnormal blood sugars. No weight change. PHYSICAL EXAMINATION: General: 73-year-old male laying down in bed in minimal distress. HEENT: Head is atraumatic, normocephalic, pupils were equal round reactive to light and recommendation, extraocular muscle movement were intact, sclera nonicteric, conjunctivae were pale, mucous membranes of the mouth are somewhat dry. Neck: Supple, no JVP, normal carotid upstroke bilaterally, no lymphadenopathy. Chest: Decreased breath sounds at the bases, few rhonchi, no expiratory wheezes, no chest wall tenderness, no intercostal retractions. Heart: First heart sound is normal, second heart sounds normal there is systolic ejection murmur 2/6 located in the left sternal border. Abdomen: Soft, nontender, nondistended, positive bowel sounds. Extremities: There is no edema no calf tenderness DP +2 bilaterally. Neurologic examination: Patient is awake alert and oriented x3, cranial nerves II-12 appear grossly intact, muscle power were 5 out of 5 in upper extremities and 4 out of 5 in bilateral lower extremities, deep tendon reflexes normal bilaterally. ASSESSMENT AND PLAN: 1. Postoperative day #1 status post revision laminectomy of L2-L3 L3-L4 L4-L5 with medial facetectomy and foraminotomies. Continue current pain management as outlined by spine surgery, continue and encourage the use of incentive spirometer to reduce the incidence of atelectasis and healthcare associated pneumonia, early ambulation as indicated, continue to monitor the patient very closely during his hospital stay. 2. Hypertension and hypertensive cardiovascular disease. Continue patient on losartan 25 mg orally once every day, continue metoprolol 50 mg orally twice every day, monitor the patient blood pressure very closely. 3. Mixed hyperlipidemia. Continue patient on atorvastatin 80 mg once every day, monitor the patient lipid panel, keep LDL 55-70. 4. History of coronary artery disease status post multiple PCI. Continue patient on metoprolol 50 mg orally twice a day as well as atorvastatin 80 mg once every day, continue aspirin 81 mg once a day, Plavix 75 mg once every day. 5. Enlarged prostate. Monitor for urinary retention. 6. Depression. Continue paroxetine 20 mg once every day. 7. Spondylolisthesis of the lumbar spine with radiculopathy postsurgical intervention continue current pain management. 8. DVT prophylaxis. Continue bilateral knee-high JESSI hose as well as bilateral SCDs. Early ambulation. 9. GI prophylaxis. Continue patient on Protonix 40 mg once every day. 10. Constipation, start the patient on MiraLAX 17 g in 8 ounce of water, continue Senokot 2 tablets at bedtime, if not better will add lactulose 20 g orally twice every day. 11. Increase activity. Objective - Vital Signs Vital signs: Vital Signs Temp 98.4 F 08/16/23 07:30 Pulse 70 08/16/23 08:00 Resp 18 08/16/23 08:00 BP 120/51 08/16/23 07:30 Pulse Ox 95 08/16/23 07:30 FiO2 Intake & Output 08/15/23 08/16/23 08/16/23 18:59 06:59 18:59 Intake Total 2169 Output Total 570 785 Balance 1599 -785 Weight 107.2 kg Intake: IV 2051 Oral 118 Output: Drainage 60 Back 60 Urine 220 725 Estimated Blood Loss 350 Other: Voiding Method Indwelling Catheter Indwelling Catheter - Labs CBC & Chem 7: 08/16/23 07:29 08/16/23 07:29 Labs: Abnormal Lab Results - Last 24 Hours (Table) 08/16/23 08/16/23 Range/Units 07:29 07:29 WBC 17.21 H (4.50-10.00) X 10*3/uL RBC 3.65 L (4.40-5.60) X 10*6/uL Hgb 11.7 L (13.0-17.0) g/dL Hct 35.4 L (39.6-50.0) % MCH 32.1 H (27.0-32.0) pg MPV 9.4 L (9.5-12.2) FL Immature Gran # 0.09 H (0.00-0.04) X 10*3/uL Neutrophils # 13.58 H (1.80-7.70) X 10*3/uL Monocytes # 1.87 H (0.20-1.00) X 10*3/uL BUN/Creatinine Ratio 9.36 L (12.00-20.00) Ratio Glucose 137 H (70-110) mg/dL Calcium 8.6 L (8.7-10.3) mg/dL
--- NOTE | 2023-08-17 15:13 | P.PN ---
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 Guajardo and he was admitted to the hospital I was asked to see the patient for postoperative medical management. 08/16: Patient is laying down in bed in no apparent distress, he stated that the pain is better today, he continues to have increased bloating, he is passing gas, he is urinating, he denies any headache at this point in time, he denies any numbness, he seems to be ambulating better, using the walker, he he was seen earlier by Dr. Mccarthy, continue current treatment plan, continue pain management, continue with physical therapy, we will follow-up with the patient very closely. 08/17: Patient is doing a lot better today he is eating well, is urinating well, no issues with retention, no bowel movement yet, and lactulose 20 g orally twice every day, continue MiraLAX and Senokot, increase ambulation, pain is controlled well, likely will stay in the hospital for another 24 hours, continues to have the drain in place. REVIEW OF SYSTEMS: Constitutional: No documented fever, no chills, no night sweats. No weight change. No weakness, fatigue or lethargy. No daytime sleepiness. EENT: No headache. No blurred vision or double vision, no loss of vision. No loss of Hearing, no ringing in the ears, no dizziness. No nasal drainage or congestion. No epistaxis. No sore throat. Lungs: No shortness of breath, no cough, no sputum production. No wheezing. Reports dyspnea with activity. Cardiovascular: No chest pain, no lower extremity edema. No palpitations. No paroxysmal nocturnal dyspnea. No orthopnea. No lightheadedness or dizziness. No syncopal episodes. Abdominal: Reports abdominal pain. No nausea, vomiting. No diarrhea. No constipation. No bloody or tarry stools reports loss of appetite. Genitourinary: No dysuria, increased frequency, urgency. No urinary retention. Musculoskeletal: No myalgias. No muscle weakness, no gait dysfunction, no frequent falls. positive for back pain. No neck pain. Integumentary: wound is clean and drain in place no lesions. No rash or pruritus. No unusual bruising. No change in hair or nails. Neurologic: No aphasia. No facial droop. No change in mentation. No head injury. No headache. No paralysis. No paresthesia. Psychiatric: No depression. No anxiety. No mood swings. Endocrine: No abnormal blood sugars. No weight change. PHYSICAL EXAMINATION: General: 73-year-old male laying down in bed in minimal distress. HEENT: Head is atraumatic, normocephalic, pupils were equal round reactive to light and recommendation, extraocular muscle movement were intact, sclera nonicteric, conjunctivae were pale, mucous membranes of the mouth are somewhat dry. Neck: Supple, no JVP, normal carotid upstroke bilaterally, no lymphadenopathy. Chest: Decreased breath sounds at the bases, few rhonchi, no expiratory wheezes, no chest wall tenderness, no intercostal retractions. Heart: First heart sound is normal, second heart sounds normal there is systolic ejection murmur 2/6 located in the left sternal border. Abdomen: Soft, nontender, nondistended, positive bowel sounds. Extremities: There is no edema no calf tenderness DP +2 bilaterally. Neurologic examination: Patient is awake alert and oriented x3, cranial nerves II-12 appear grossly intact, muscle power were 5 out of 5 in upper extremities and 4 out of 5 in bilateral lower extremities, deep tendon reflexes normal bilaterally. ASSESSMENT AND PLAN: 1. Postoperative day #2 status post revision laminectomy of L2-L3 L3-L4 L4-L5 with medial facetectomy and foraminotomies. Continue current pain management as outlined by spine surgery, continue and encourage the use of incentive spirometer to reduce the incidence of atelectasis and healthcare associated pneumonia, early ambulation as indicated, continue to monitor the patient very closely during his hospital stay. 2. Hypertension and hypertensive cardiovascular disease. Continue patient on losartan 25 mg orally once every day, continue metoprolol 50 mg orally twice every day, monitor the patient blood pressure very closely. 3. Mixed hyperlipidemia. Continue patient on atorvastatin 80 mg once every day, monitor the patient lipid panel, keep LDL 55-70. 4. History of coronary artery disease status post multiple PCI. Continue patient on metoprolol 50 mg orally twice a day as well as atorvastatin 80 mg once every day, continue aspirin 81 mg once a day, Plavix 75 mg once every day. 5. Enlarged prostate. Monitor for urinary retention. 6. Depression. Continue paroxetine 20 mg once every day. 7. Spondylolisthesis of the lumbar spine with radiculopathy postsurgical intervention continue current pain management. 8. DVT prophylaxis. Continue bilateral knee-high JESSI hose as well as bilateral SCDs. Early ambulation. 9. GI prophylaxis. Continue patient on Protonix 40 mg once every day. 10. Constipation, continue the patient on MiraLAX 17 g in 8 ounce of water, continue Senokot 2 tablets at bedtime, add lactulose 20 g orally twice every day. 11. Increase activity. Objective - Vital Signs Vital signs: Vital Signs Temp 97.6 F 08/17/23 13:44 Pulse 80 08/17/23 13:44 Resp 17 08/17/23 13:44 BP 106/58 08/17/23 13:44 Pulse Ox 93 L 08/17/23 13:44 FiO2 Intake & Output 08/16/23 08/17/23 08/17/23 18:59 06:59 18:59 Output Total 1060 100 Balance -1060 -100 Output: Drainage 60 100 Back 60 100 Urine 1000 Other: Voiding Method Indwelling Catheter Toilet Toilet # Voids 4 2 - Labs CBC & Chem 7: 08/16/23 07:29 08/16/23 07:29
[2023-08-17] MEDS: LACTULOSE 20 GM/30 ML CUP PO SCH (20:58)
--- NOTE | 2023-08-18 08:29 | P.PN ---
Subjective Progress Note Date: 08/18/23 Principal diagnosis: Status post Revision laminectomy and decompression L2-3 L3-4 L4-5 with revision laminectomy and partial medial facetectomy and foraminotomies Decompressive discectomy L2-3 L3-4 L4-5 with lumbar interbody fusion. This is a 73-year-old male who is postoperative day #3 status post revision laminectomy with decompression and interbody fusion L2-5. The patient is doing fairly well from an orthopedic standpoint. He has been up to the bathroom with his walker and one person assist. He has had 50 mL out of his Hemovac drain since last evening. Vital signs are stable. He complains of no nausea, vomiting or diarrhea. He thinks that he may need to go to inpatient rehab instead of going home. Family is concerned that they will not be able to take care of him. Objective - Vital Signs Vital signs: Vital Signs Temp 98.4 F 08/18/23 07:33 Pulse 79 08/18/23 07:33 Resp 20 08/18/23 07:33 BP 150/82 08/18/23 07:33 Pulse Ox 95 08/18/23 07:33 FiO2 Intake & Output 08/17/23 08/18/23 08/18/23 18:59 06:59 18:59 Intake Total 1900 1000 Output Total 100 300 Balance 1800 700 Intake: Intake, IV Titration 1200 Amount Sodium Chloride 0.9% 1, 1200 000 ml @ 75 mls/hr IV . [id number] [facility] Rx#:[id number] Oral 700 1000 Output: Drainage 100 100 Back 100 100 Urine 200 Other: Voiding Method Toilet Toilet - Exam This is a pleasant 73-year-old male in no acute distress. He is alert and oriented 3. Exam of the lumbar spine reveals that his dressing is clean, dry and intact. There is minimal soft tissue swelling. No erythema. Hemovac drain is in place and is removed today without difficulty. Exam of the lower extremities reveals no obvious deformities. There are no neuro deficits. The patient can lift each leg off the bed independently. He has full foot and ankle motion without difficulty or pain. Neurovascular status to the lower extremities is intact. - Labs CBC & Chem 7: 08/16/23 07:29 08/16/23 07:29 Assessment and Plan (1) Status post lumbar spinal fusion Current Visit: Yes Status: Acute Code(s): Z98.1 - ARTHRODESIS STATUS SNOMED Code(s): 10963213540309 (2) S/P total hip arthroplasty Current Visit: No Status: Acute Code(s): Z96.649 - PRESENCE OF UNSPECIFIED ARTIFICIAL HIP JOINT SNOMED Code(s): 048251252801 Plan: The clinical findings are discussed with the patient. I removed the Hemovac and applied a dressing with Tegaderm over the Hemovac site. [facility]. Continue current care and physical therapy.
[2023-08-18] MEDS: SENNOSIDES-DOCUSATE SODIUM 1 EACH TAB PO SCH (09:07)
[2023-08-18 10:31] LABS: Basophils # (A) 0.03 X 10*3/uL (0.00-0.10); Basophils % (A) 0.3 %; Eosinophils # (A) 0.45 X 10*3/uL (0.04-0.35); Eosinophils % (A) 4.1 %; HCT 29.4 % (39.6-50.0); HGB 9.8 g/dL (13.0-17.0); Lymphocytes # (A) 1.51 X 10*3/uL (0.90-5.00); Lymphocytes % (A) 13.8 %; MCH 32.1 pg (27.0-32.0); MCHC 33.3 g/dL (32.0-37.0); MCV 96.4 FL (80.0-97.0); Mean Platelet Volume 9.9 FL (9.5-12.2); Monocytes # (A) 1.34 X 10*3/uL (0.20-1.00); Monocytes % (A) 12.2 %; NRBC Per 100 WBC 0 X 10*3/uL (0.00-0.01); Neutrophils # (A) 7.59 X 10*3/uL (1.80-7.70); Neutrophils % (A) 69.1 %; Platelet Count 158 X 10*3/uL (140-440); RBC 3.05 X 10*6/uL (4.40-5.60); RDW 13.3 % (11.5-14.5); WBC 10.97 X 10*3/uL (4.50-10.00)
[2023-08-18 10:45] LABS: ALT 15 U/L (10-49); AST 26 U/L (14-35); Albumin/Globulin Ratio 1.58 Ratio (1.60-3.17); Alkaline Phosphatase 53 U/L (41-126); Blood Urea Nitrogen 10.4 mg/dL (9.0-27.0); Calcium 8.7 mg/dL (8.7-10.3); Carbon Dioxide 27.3 mmol/L (21.6-31.8); Chloride 98 mmol/L (96-109); Globulin 1.9 g/dL (1.6-3.3); Glucose 126 mg/dL (70-110); Potassium 4.5 mmol/L (3.5-5.5); Sodium 137 mmol/L (135-145); Total Bilirubin 0.8 mg/dL (0.3-1.2); Total Protein 4.9 g/dL (6.2-8.2)
--- NOTE | 2023-08-18 12:23 | P.PN ---
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 Guajardo and he was admitted to the hospital I was asked to see the patient for postoperative medical management. 08/16: Patient is laying down in bed in no apparent distress, he stated that the pain is better today, he continues to have increased bloating, he is passing gas, he is urinating, he denies any headache at this point in time, he denies any numbness, he seems to be ambulating better, using the walker, he he was seen earlier by Dr. Mccarthy, continue current treatment plan, continue pain management, continue with physical therapy, we will follow-up with the patient very closely. 08/17: Patient is doing a lot better today he is eating well, is urinating well, no issues with retention, no bowel movement yet, and lactulose 20 g orally twice every day, continue MiraLAX and Senokot, increase ambulation, pain is controlled well, likely will stay in the hospital for another 24 hours, continues to have the drain in place. 08/18: Patient is sitting up in the chair with the help of physical therapy, patient is not able to perform activities of daily living at home, his is not able to help because of her frozen shoulder, therefore Occupational Therapy will be consulted, director of social work consultation for subacute rehabilitation likely moderate on Sunday. Patient has his drain removed today, was seen earlier by spine surgery, incision appears to be clean and dry, dressed appropriately, no evidence of any erythema, no evidence of any drainage, patient denies any chest pain at this time, he has no shortness of breath, he has no abdominal pain, he did have a bowel movement yesterday, continue with MiraLAX, Senokot, continue also with lactulose 20 g orally twice every day, increase activity, family were at the bedside they were updated about his current condition. REVIEW OF SYSTEMS: Constitutional: No documented fever, no chills, no night sweats. No weight change. No weakness, fatigue or lethargy. No daytime sleepiness. EENT: No headache. No blurred vision or double vision, no loss of vision. No loss of Hearing, no ringing in the ears, no dizziness. No nasal drainage or congestion. No epistaxis. No sore throat. Lungs: No shortness of breath, no cough, no sputum production. No wheezing. Reports dyspnea with activity. Cardiovascular: No chest pain, no lower extremity edema. No palpitations. No paroxysmal nocturnal dyspnea. No orthopnea. No lightheadedness or dizziness. No syncopal episodes. Abdominal: Reports abdominal pain. No nausea, vomiting. No diarrhea. No constipation. No bloody or tarry stools reports loss of appetite. Genitourinary: No dysuria, increased frequency, urgency. No urinary retention. Musculoskeletal: No myalgias. No muscle weakness, no gait dysfunction, no frequent falls. positive for back pain. No neck pain. Integumentary: wound is clean and drain in place no lesions. No rash or pruritus. No unusual bruising. No change in hair or nails. Neurologic: No aphasia. No facial droop. No change in mentation. No head injury. No headache. No paralysis. No paresthesia. Psychiatric: No depression. No anxiety. No mood swings. Endocrine: No abnormal blood sugars. No weight change. PHYSICAL EXAMINATION: General: 73-year-old male laying down in bed in minimal distress. HEENT: Head is atraumatic, normocephalic, pupils were equal round reactive to light and recommendation, extraocular muscle movement were intact, sclera nonic teric, conjunctivae were pale, mucous membranes of the mouth are somewhat dry. Neck: Supple, no JVP, normal carotid upstroke bilaterally, no lymphadenopathy. Chest: Decreased breath sounds at the bases, few rhonchi, no expiratory wheezes, no chest wall tenderness, no intercostal retractions. Heart: First heart sound is normal, second heart sounds normal there is systolic ejection murmur 2/6 located in the left sternal border. Abdomen: Soft, nontender, nondistended, positive bowel sounds. Extremities: There is no edema no calf tenderness DP +2 bilaterally. Neurologic examination: Patient is awake alert and oriented x3, cranial nerves II-12 appear grossly intact, muscle power were 5 out of 5 in upper extremities and 4 out of 5 in bilateral lower extremities, deep tendon reflexes normal bilat erally. ASSESSMENT AND PLAN: 1. Postoperative day #3 status post revision laminectomy of L2-L3 L3-L4 L4-L5 with medial facetectomy and foraminotomies. Continue current pain management as outlined by spine surgery, continue and encourage the use of incentive spirometer to reduce the incidence of atelectasis and healthcare associated pneumonia, early ambulation as indicated, physical therapy and Occupational Therapy evaluation likely for subacute rehabilitation for 2. Hypertension and hypertensive cardiovascular disease. Continue patient on losartan 25 mg orally once every day, continue metoprolol 50 mg orally twice every day, monitor the patient blood pressure very closely. 3. Mixed hyperlipidemia. Continue patient on atorvastatin 80 mg once every day, monitor the patient lipid panel, keep LDL 55-70. 4. History of coronary artery disease status post multiple PCI. Continue pat ient on metoprolol 50 mg orally twice a day as well as atorvastatin 80 mg once every day, continue aspirin 81 mg once a day, Plavix 75 mg once every day. 5. Enlarged prostate. Monitor for urinary retention. 6. Depression. Continue paroxetine 20 mg once every day. 7. Spondylolisthesis of the lumbar spine with radiculopathy postsurgical intervention continue current pain management. 8. DVT prophylaxis. Continue bilateral knee-high JESSI hose as well as bilateral SCDs. Early ambulation. 9. GI prophylaxis. Continue patient on Protonix 40 mg once every day. 10. Constipation, continue the patient on MiraLAX 17 g in 8 ounce of water, continue Senokot 2 tablets at bedtime, continue lactulose 20 g orally twice every day. 11. Increase activity. 12. Protein calorie malnutrition increase oral intake of protein per 13. Physical therapy/Occupational Therapy along with director of social work consultation for discharge planning. Patient will likely require subacute rehabilitation Objective - Vital Signs Vital signs: Vital Signs Temp 98.4 F 08/18/23 07:33 Pulse 79 08/18/23 07:33 Resp 20 08/18/23 07:33 BP 150/82 08/18/23 07:33 Pulse Ox 95 08/18/23 07:33 FiO2 Intake & Output 08/17/23 08/18/23 08/18/23 18:59 06:59 18:59 Intake Total 1900 1000 Output Total 100 300 Balance 1800 700 Intake: Intake, IV Titration 1200 Amount Sodium Chloride 0.9% 1, 1200 000 ml @ 75 mls/hr IV . [id number] [facility] Rx#:[id number] Oral 700 1000 Output: Drainage 100 100 Back 100 100 Urine 200 Other: Voiding Method Toilet Toilet - Labs CBC & Chem 7: 08/18/23 06:11 08/18/23 06:11 Labs: Abnormal Lab Results - Last 24 Hours (Table) 08/18/23 08/18/23 Range/Units 06:11 06:11 WBC 10.97 H (4.50-10.00) X 10*3/uL RBC 3.05 L (4.40-5.60) X 10*6/uL Hgb 9.8 L (13.0-17.0) g/dL Hct 29.4 L (39.6-50.0) % MCH 32.1 H (27.0-32.0) pg Immature Gran # 0.05 H (0.00-0.04) X 10*3/uL Monocytes # 1.34 H (0.20-1.00) X 10*3/uL Eosinophils # 0.45 H (0.04-0.35) X 10*3/uL BUN/Creatinine Ratio 10.40 L (12.00-20.00) Ratio Glucose 126 H (70-110) mg/dL Total Protein 4.9 L (6.2-8.2) g/dL Albumin 3.0 L (3.8-4.9) g/dL Albumin/Globulin Ratio 1.58 L (1.60-3.17) Ratio
--- NOTE | 2023-08-19 09:10 | P.PN ---
Subjective Progress Note Date: 08/19/23 Principal diagnosis: Status post Revision laminectomy and decompression L2-3 L3-4 L4-5 with revision laminectomy and partial medial facetectomy and foraminotomies Decompressive discectomy L2-3 L3-4 L4-5 with lumbar interbody fusion. This is a 73-year-old male who is postoperative day #4 status post revision laminectomy with decompression and interbody fusion L2-5. The patient is doing fairly well from an orthopedic standpoint. He has been up to the bathroom with his walker and one person assist. His Hemovac was removed yesterday. Vital signs are stable. He complains of no nausea, vomiting or diarrhea. He thinks that he may need to go to inpatient rehab instead of going home. Family is concerned that they will not be able to take care of him. He is requesting discharge to [facility]. Objective - Vital Signs Vital signs: Vital Signs Temp 98.4 F 08/19/23 01:10 Pulse 70 08/19/23 01:10 Resp 18 08/19/23 01:10 BP 142/75 08/19/23 01:10 Pulse Ox 94 L 08/19/23 01:10 FiO2 Intake & Output 08/18/23 08/19/23 08/19/23 18:59 06:59 18:59 Intake Total 1000 Output Total 300 Balance 700 Intake: Oral 1000 Output: Drainage 100 Back 100 Urine 200 Other: Voiding Method Toilet # Voids 3 3 # Bowel Movements 1 - Exam This is a pleasant 73-year-old male in no acute distress. He is alert and oriented 3. Exam of the lumbar spine reveals that his dressing is clean, dry and intact. There is minimal soft tissue swelling. No erythema. Exam of the lower extremities reveals no obvious deformities. There are no neuro deficits. The patient can lift each leg off the bed independently. He has full foot and ankle motion without difficulty or pain. Neurovascular status to the lower extremities is intact. - Labs CBC & Chem 7: 08/18/23 06:11 08/18/23 06:11 Labs: Abnormal Lab Results - Last 24 Hours (Table) 08/18/23 08/18/23 Range/Units 06:11 06:11 WBC 10.97 H (4.50-10.00) X 10*3/uL RBC 3.05 L (4.40-5.60) X 10*6/uL Hgb 9.8 L (13.0-17.0) g/dL Hct 29.4 L (39.6-50.0) % MCH 32.1 H (27.0-32.0) pg Immature Gran # 0.05 H (0.00-0.04) X 10*3/uL Monocytes # 1.34 H (0.20-1.00) X 10*3/uL Eosinophils # 0.45 H (0.04-0.35) X 10*3/uL BUN/Creatinine Ratio 10.40 L (12.00-20.00) Ratio Glucose 126 H (70-110) mg/dL Total Protein 4.9 L (6.2-8.2) g/dL Albumin 3.0 L (3.8-4.9) g/dL Albumin/Globulin Ratio 1.58 L (1.60-3.17) Ratio Assessment and Plan (1) Status post lumbar spinal fusion Current Visit: Yes Status: Acute Code(s): Z98.1 - ARTHRODESIS STATUS SNOMED Code(s): 67473044728543 (2) S/P total hip arthroplasty Current Visit: No Status: Acute Code(s): Z96.649 - PRESENCE OF UNSPECIFIED ARTIFICIAL HIP JOINT SNOMED Code(s): 519661187865 Plan: The clinical findings are discussed with the patient. I have consulted occupational therapy for evaluation for possible rehab placement. We can hopef ully get him discharged to inpatient rehab tomorrow. Continue current care and physical therapy.
--- NOTE | 2023-08-19 10:23 | P.PN ---
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 Guajardo and he was admitted to the hospital I was asked to see the patient for postoperative medical management. 08/16: Patient is laying down in bed in no apparent distress, he stated that the pain is better today, he continues to have increased bloating, he is passing gas, he is urinating, he denies any headache at this point in time, he denies any numbness, he seems to be ambulating better, using the walker, he he was seen earlier by Dr. Mccarthy, continue current treatment plan, continue pain management, continue with physical therapy, we will follow-up with the patient very closely. 08/17: Patient is doing a lot better today he is eating well, is urinating well, no issues with retention, no bowel movement yet, and lactulose 20 g orally twice every day, continue MiraLAX and Senokot, increase ambulation, pain is controlled well, likely will stay in the hospital for another 24 hours, continues to have the drain in place. 08/18: Patient is sitting up in the chair with the help of physical therapy, patient is not able to perform activities of daily living at home, his is not able to help because of her frozen shoulder, therefore Occupational Therapy will be consulted, high school social [employer] teacher consultation for subacute rehabilitation likely moderate on Sunday. Patient has his drain removed today, was seen earlier by spine surgery, incision appears to be clean and dry, dressed appropriately, no evidence of any erythema, no evidence of any drainage, patient denies any chest pain at this time, he has no shortness of breath, he has no abdominal pain, he did have a bowel movement yesterday, continue with MiraLAX, Senokot, continue also with lactulose 20 g orally twice every day, increase activity, family were at the bedside they were updated about his current condition. 08/19: Patient is lying down in bed he continues to have some pain in the lower back, he was seen earlier by occupational therapy as well as physical therapy, he will require to go to extended care facility because he cannot carry on acti vities of daily living, he has no chest pain, he appears to have some audible wheezes on and off, just minimal, we will start Lasix 20 mg IV push x 1, monitor the patient symptoms very closely. REVIEW OF SYSTEMS: Constitutional: No documented fever, no chills, no night sweats. No weight change. No weakness, fatigue or lethargy. No daytime sleepiness. EENT: No headache. No blurred vision or double vision, no loss of vision. No loss of Hearing, no ringing in the ears, no dizziness. No nasal drainage or congestion. No epistaxis. No sore throat. Lungs: No shortness of breath, no cough, no sputum production. No wheezing. Reports dyspnea with activity. Cardiovascular: No chest pain, no lower extremity edema. No palpitations. No paroxysmal nocturnal dyspnea. No orthopnea. No lightheadedness or dizziness. No syncopal episodes. Abdominal: Reports abdominal pain. No nausea, vomiting. No diarrhea. No constipation. No bloody or tarry stools reports loss of appetite. Genitourinary: No dysuria, increased frequency, urgency. No urinary retention. Musculoskeletal: No myalgias. No muscle weakness, no gait dysfunction, no frequent falls. positive for back pain. No neck pain. Integumentary: wound is clean and drain in place no lesions. No rash or pruritus. No unusual bruising. No change in hair or nails. Neurologic: No aphasia. No facial droop. No change in mentation. No head injury. No headache. No paralysis. No paresthesia. Psychiatric: No depression. No anxiety. No mood swings. Endocrine: No abnormal blood sugars. No weight change. PHYSICAL EXAMINATION: General: 73-year-old male laying down in bed in minimal distress. HEENT: Head is atraumatic, normocephalic, pupils were equal round reactive to light and recommendation, extraocular muscle movement were intact, sclera nonicteric, conjunctivae were pale, mucous membranes of the mouth are somewhat dry. Neck: Supple, no JVP, normal carotid upstroke bilaterally, no lymphadenopathy. Chest: Decreased breath sounds at the bases, few rhonchi, no expiratory wheezes, no chest wall tenderness, no intercostal retractions. Heart: First heart sound is normal, second heart sounds normal there is systolic ejection murmur 2/6 located in the left sternal border. Abdomen: Soft, nontender, nondistended, positive bowel sounds. Extremities: There is no edema no calf tenderness DP +2 bilaterally. Neurologic examination: Patient is awake alert and oriented x3, cranial nerves II-12 appear grossly intact, muscle power were 5 out of 5 in upper extremities and 4 out of 5 in bilateral lower extremities, deep tendon reflexes normal bilaterally. ASSESSMENT AND PLAN: 1. Postoperative day #5 status post revision laminectomy of L2-L3 L3-L4 L4-L5 with medial facetectomy and foraminotomies. Continue current pain management as outlined by spine surgery, continue and encourage the use of incentive spirom eter to reduce the incidence of atelectasis and healthcare associated pneumonia, early ambulation as indicated, physical therapy and Occupational Therapy evaluation likely for subacute rehabilitation started patient on heparin 5000 units subcutaneously every 8 hours. 2. Hypertension and hypertensive cardiovascular disease. Continue patient on losartan 25 mg orally once every day, continue metoprolol 50 mg orally twice every day, monitor the patient blood pressure very closely. 3. Mixed hyperlipidemia. Continue patient on atorvastatin 80 mg once every day, monitor the patient lipid panel, keep LDL 55-70. 4. History of coronary artery disease status post multiple PCI. Continue patient on metoprolol 50 mg orally twice a day as well as atorvastatin 80 mg once every day, continue aspirin 81 mg once a day, Plavix 75 mg once every day. 5. Enlarged prostate. Monitor for urinary retention. 6. Depression. Continue paroxetine 20 mg once every day. 7. Spondylolisthesis of the lumbar spine with radiculopathy postsurgical intervention continue current pain management. 8. DVT prophylaxis. Continue bilateral knee-high JESSI hose as well as bilateral SCDs. Early ambulation. Start the patient on heparin 5000 subcutaneously every8 hours. 9. GI prophylaxis. Continue patient on Protonix 40 mg once every day. 10. Constipation, continue the patient on MiraLAX 17 g in 8 ounce of water, continue Senokot 2 tablets at bedtime, continue lactulose 20 g orally twice every day. 11. Increase activity. 12. Protein calorie malnutrition increase oral intake of protein per 13. Physical therapy/Occupational Therapy along with high school social studies teacher consultation for discharge planning. Patient will likely require subacute rehabilitation 14. Likely ECF tomorrow morning. Objective - Vital Signs Vital signs: Vital Signs Temp 98.4 F 08/19/23 01:10 Pulse 70 08/19/23 01:10 Resp 18 08/19/23 01:10 BP 142/75 08/19/23 01:10 Pulse Ox 94 L 08/19/23 01:10 FiO2 Intake & Output 08/18/23 08/19/23 08/19/23 18:59 06:59 18:59 Intake Total 1000 Output Total 300 Balance 700 Intake: Oral 1000 Output: Drainage 100 Back 100 Urine 200 Other: Voiding Method Toilet # Voids 3 3 # Bowel Movements 1 - Labs CBC & Chem 7: 08/18/23 06:11 08/18/23 06:11 Labs: Abnormal Lab Results - Last 24 Hours (Table) 08/18/23 08/18/23 Range/Units 06:11 06:11 WBC 10.97 H (4.50-10.00) X 10*3/uL RBC 3.05 L (4.40-5.60) X 10*6/uL Hgb 9.8 L (13.0-17.0) g/dL Hct 29.4 L (39.6-50.0) % MCH 32.1 H (27.0-32.0) pg Immature Gran # 0.05 H (0.00-0.04) X 10*3/uL Monocytes # 1.34 H (0.20-1.00) X 10*3/uL Eosinophils # 0.45 H (0.04-0.35) X 10*3/uL BUN/Creatinine Ratio 10.40 L (12.00-20.00) Ratio Glucose 126 H (70-110) mg/dL Total Protein 4.9 L (6.2-8.2) g/dL Albumin 3.0 L (3.8-4.9) g/dL Albumin/Globulin Ratio 1.58 L (1.60-3.17) Ratio
[2023-08-19] MEDS: FUROSEMIDE 10 MG/ML 2 ML VIAL IV STA (12:24)
[2023-08-19] MEDS: HEPARIN SODIUM,PORCINE 5,000 UNIT/ML 1 ML VIAL SQ SCH (18:16)
[2023-08-20 09:10] VITALS: RESP 18
[2023-08-20 09:16] LABS: Blood Urea Nitrogen 11.6 mg/dL (9.0-27.0); Glucose 118 mg/dL (70-110)
[2023-08-20 09:17] LABS: ALT 18 U/L (10-49); AST 25 U/L (14-35); Albumin 2.9 g/dL (3.8-4.9); Albumin/Globulin Ratio 1.45 Ratio (1.60-3.17); Alkaline Phosphatase 56 U/L (41-126); Calcium 8.7 mg/dL (8.7-10.3); Carbon Dioxide 26.6 mmol/L (21.6-31.8); Chloride 99 mmol/L (96-109); Potassium 3.8 mmol/L (3.5-5.5); Sodium 136 mmol/L (135-145); Total Bilirubin 0.7 mg/dL (0.3-1.2); Total Protein 4.9 g/dL (6.2-8.2)
[2023-08-20 10:00] LABS: Basophils # (A) 0.06 X 10*3/uL (0.00-0.10); Basophils % (A) 0.5 %; Eosinophils # (A) 0.87 X 10*3/uL (0.04-0.35); Eosinophils % (A) 7.6 %; HCT 30.2 % (39.6-50.0); Lymphocytes # (A) 1.71 X 10*3/uL (0.90-5.00); MCH 31.5 pg (27.0-32.0); MCHC 33.1 g/dL (32.0-37.0); MCV 95.3 FL (80.0-97.0); Mean Platelet Volume 9.6 FL (9.5-12.2); Monocytes # (A) 1.53 X 10*3/uL (0.20-1.00); Monocytes % (A) 13.4 %; NRBC Per 100 WBC 0 X 10*3/uL (0.00-0.01); Neutrophils # (A) 7.15 X 10*3/uL (1.80-7.70); Neutrophils % (A) 62.8 %; Platelet Count 222 X 10*3/uL (140-440); RBC 3.17 X 10*6/uL (4.40-5.60); RDW 13.3 % (11.5-14.5)
--- NOTE | 2023-08-20 12:59 | P.DS ---
Providers Date of admission: 08/17/23 12:56 Expected date of discharge: 08/20/23 Attending physician: Daniel Guajardo Consults: 08/15/23 13:14 Consult Physician Routine Consulting Provider: Ramírez Beal Consult Reason/Comments: Medical management Do you want consulting provider notified?: Yes Primary care physician: Ramírez Beal - Discharge Diagnosis(es) (1) Radiculopathy with lower extremity symptoms Current Visit: Yes Status: Acute (2) Lumbar degenerative disc disease Current Visit: Yes Status: Acute (3) History of laminectomy Current Visit: Yes Status: Acute (4) Lumbar spinal stenosis Current Visit: Yes Status: Acute (5) Spondylolisthesis of lumbar region Current Visit: Yes Status: Acute (6) Hypertension Current Visit: Yes Status: Acute (7) Hyperlipidemia Current Visit: Yes Status: Acute (8) Heart disease Current Visit: Yes Status: Acute (9) Elevated cholesterol Current Visit: Yes Status: Acute (10) Status post lumbar spinal fusion Current Visit: Yes Status: Acute Hospital Course: This is a pleasant 73-year-old male who presented with L2-3, L3-4, and L4-5 recurrent spinal post lumbar fusion stenosis with herniated nucleus pulposus, lower extremity radiculopathy, lumbar degenerative disc disease, lumbar spondylolisthesis, and history of previous laminectomy at L2-3, L3-4, and L4-5 who failed outpatient conservative therapy. He was admitted for an L2-3, L3-4, and L4-5 open lumbar decompression and fusion with transforaminal lumbar interbody fusion and revision laminectomy. The patient tolerated the procedure well and did well postoperatively. Continue to improve but slowly. He has been utilizing a walker to aid in ambulation. He has been working with physical therapy. He does not feel he would be able to mobilize well independently at home and feels he would be better with discharge to a rehabilitation facility to further increase his strength and mobility prior to returning home. Case management has been working with the patient for insurance authorization for discharge to rehabilitation facility. If this authorization is obtained today and he is cleared by medicine, will plan for discharge. Condition on day of discharge stable. Patient was cleared preoperatively for surgery by Dr. Beal. Patient currently denies any nausea, vomiting, fever, or chills. Patient is eating and voiding freely without difficulty. Had a bowel movement today. He has been urinating without difficulty. Patient may shower Tegaderm dressing intact. Patient may remove Tegaderm dressing in 3 days and shower without a dressing at that time. Patient should refrain from driving until at least after their first follow-up appointment in the office. Patient should avoid excessive bending, lifting, and twisting; no lifting greater than 10 pounds. MAPS has been reviewed. An "Opiod Start Talking" Form has been signed and placed in the patient's chart. A prescription has been written for hydrocodone 7.5 mg / 325 mg, 1 tab, every 6 hours, as needed for acute pain, dispense #28. Prescription is written, signed, and placed in the patient's chart for discharge to rehabilitation facility. Patient is also given a prescription for baclofen 10 mg, 1 tab, 3 times daily, as needed for muscle spasm, dispense #60. He is also given a prescription for Senokot-S, 1 tab, twice daily, as needed for constipation, dispense #60. Patient's other medical diagnoses include hyperlipidemia, heart disease, hypertension, and elevated cholesterol. He continues to be seen and examined by medicine. Physical Exam on day of discharge: Patient is awake, alert, and oriented 3 Vital signs stable Good chest excursion with deep inspiration and expiration History laminectomy no signs or symptoms of DVT; no calf pain Extensor hallucis longus, plantarflexion, and dorsiflexion positive sustained bilateral lower extremities Dressing is removed during physical examination. New dressing is placed with nonstick Telfa and Tegaderm. Incision is clean and intact with 2 small spots of minimal blood discharge; no erythema, purulence, or signs of infection Evidence of some skin irritation over the lumbar spine from previous adhesive placement Procedures: L2-3, L3-4, and L4-5 open lumbar decompression and fusion with transforaminal lumbar interbody fusion and revision laminectomy. Patient Condition at Discharge: Stable Plan - Discharge Summary Discharge Rx Participant: No New Discharge Prescriptions: New Baclofen 10 mg PO TID PRN #60 tab PRN Reason: Spasms HYDROcodone/APAP 7.5-325MG [[place] 7.5-325] 1 each PO Q6HR PRN #28 tab PRN Reason: Pain Sennosides-Docusate Sodium [Senokot-S] 1 tab PO BID PRN #60 tablet PRN Reason: Constipation No Action Atorvastatin [Lipitor] 80 mg PO HS Fenofibrate [Lofibra] 160 mg PO DAILY PARoxetine [Paxil] 20 mg PO QAM Aspirin EC [Ecotrin Low Dose] 81 mg PO QAM Nitroglycerin 0.4 mg SL DIRECTED PRN PRN Reason: Chest Pain Cyanocobalamin (Vitamin B-12) [Vitamin B-12] 1,000 mcg PO DAILY Metoprolol Tartrate [Lopressor] 50 mg PO BID Zinc Gluconate [Zinc] 50 mg PO BID Ascorbic Acid [Vitamin C] 1,000 mg PO DAILY tiZANidine [Zanaflex] 2 mg PO BID HYDROcodone/APAP 7.5-325MG [[place] 7.5-325] 1 tab PO Q8H PRN PRN Reason: Pain Loratadine-Pseudoeph 10-240 mg [Claritin-D 24 Hour] 1 tab PO HS Losartan [Cozaar] 25 mg PO QAM Fish Oil/Dha/Epa [Fish Oil 1,200 mg Fish Oil] 1 each PO BID Cholecalciferol (Vitamin D3) [Vitamin D3 (1250 Mcg = 50,000 Iu)] 125 mcg PO DAILY Clopidogrel [Plavix] 75 mg PO DAILY #0 Discharge Medication List Aspirin EC [Ecotrin Low Dose] 81 mg PO QAM 07/29/18 [History] Atorvastatin [Lipitor] 80 mg PO HS 07/29/18 [History] Fenofibrate [Lofibra] 160 mg PO DAILY 07/29/18 [History] PARoxetine [Paxil] 20 mg PO QAM 07/29/18 [History] Cyanocobalamin (Vitamin B-12) [Vitamin B-12] 1,000 mcg PO DAILY 08/02/18 [Histo ry] Nitroglycerin 0.4 mg SL DIRECTED PRN 08/02/18 [History] Metoprolol Tartrate [Lopressor] 50 mg PO BID 07/17/20 [History] Ascorbic Acid [Vitamin C] 1,000 mg PO DAILY 10/07/22 [History] Zinc Gluconate [Zinc] 50 mg PO BID 10/07/22 [History] Cholecalciferol (Vitamin D3) [Vitamin D3 (1250 Mcg = 50,000 Iu)] 125 mcg PO DAILY 05/02/23 [History] HYDROcodone/APAP 7.5-325MG [[place] 7.5-325] 1 tab PO Q8H PRN 05/02/23 [History] Loratadine-Pseudoeph 10-240 mg [Claritin-D 24 Hour] 1 tab PO HS 05/02/23 [History] tiZANidine [Zanaflex] 2 mg PO BID 05/02/23 [History] Clopidogrel [Plavix] 75 mg PO DAILY #0 05/03/23 [Rx] Fish Oil/Dha/Epa [Fish Oil 1,200 mg Fish Oil] 1 each PO BID 08/08/23 [History] Losartan [Cozaar] 25 mg PO QAM 08/08/23 [History] Baclofen 10 mg PO TID PRN #60 tab 08/20/23 [Rx] HYDROcodone/APAP 7.5-325MG [[place] 7.5-325] 1 each PO Q6HR PRN #28 tab 08/20/23 [Rx] Sennosides-Docusate Sodium [Senokot-S] 1 tab PO BID PRN #60 tablet 08/20/23 [Rx] Follow up Appointment(s)/Referral(s): Residential Home,Health [NON-STAFF] - As Needed Idris Asencio, PAC [PHYSICIAN NURSE EDUCATOR] - 3 Weeks (Patient may follow-up with Idris Asencio PA-C or Dr. Christian Guajardo at [facility] in 2-3 weeks following discharge. ) Activity/Diet/Wound Care/Special Instructions: Please call Surya when you are home and he will have your bone stimulator delivered to your home: #[phone]. 1. Patient may shower with Optifoam dressing intact. 2. Patient may remove Optifoam dressing in 3 days and shower without a dressing at that time. 3. Patient should refrain from driving until at least after their first follow- up appointment in the office. 4. Patient should avoid excessive bending, twisting, lifting; avoid overhead lifting; no lifting greater than 10 pounds 5. He is encouraged to utilize a walker to aid in ambulation as needed 6. Take medications as prescribed 7. Patient should avoid anti-inflammatory medications over the next 6 weeks postoperatively 8. Do not soak in tub Discharge Disposition: TRANSFER TO SNF/ECF
[2023-08-20 15:16] VITALS: BP 120/70; PULSE 78; TEMP 97.8
--- NOTE | 2023-08-20 17:53 | CDI ---
Documentation Clarification Form Date: 08/20/2023 05:26:26 PM From: Zoey Cline RN, CCDS Phone: [phone] Admit Date: 08/17/2023 12:56:00 PM Patient Name: Alexsander Zavala Visit Number: [id number] Discharge Date: 08/20/2023 03:57:00 PM ATTENTION: The Clinical Documentation Specialists (CDI) and [facility] Coding Staff appreciate your assistance in clarifying documentation. Please respond to the clarification below the line at the bottom and electronically sign. The CDI & [facility] Coding staff will review the response and follow-up if needed. Please note: Queries are made part of the Legal Health Record. If you have any questions, please contact the author of this message via ITS. Dr. Ramírez Beal Protein calorie malnutrition is documented in the Internal Medicine progress note starting on 08/18/23. Additional clarification regarding the severity of malnutrition is requested. History/Risk Factors: Hypertension and hypertensive cardiovascular disease, Hyperlipidemia, Enlarged prostate, spondylolisthesis of the lumbar region with myelopathy Clinical Indicators: 73-year-old male presents for elective revision laminectomy of L2-L3 L3-L4 L4-L5 with partial medial facetectomy and foraminotomies. Postoperative day #3 He reports loss of appetite. Protein calorie malnutrition increase oral intake of protein Current BMI:34.9 5ft 9in 107.2 kg Treatment: Regular diet Increase oral intake of protein Please clarify the severity of malnutrition, if known: [ ] Mild Protein-Calorie Malnutrition [ X] Moderate Protein-Calorie Malnutrition [ ] Severe Protein-Calorie Malnutrition [ ] Protein Calorie Malnutrition, unknown severity [ ] Other condition, please specify [ ] Unable to Determine (Template Last Revised: December 2022) MTDD
--- NOTE | 2023-08-21 21:33 | P.PN ---
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 Guajardo and he was admitted to the hospital I was asked to see the patient for postoperative medical management. 08/16: Patient is laying down in bed in no apparent distress, he stated that the pain is better today, he continues to have increased bloating, he is passing gas, he is urinating, he denies any headache at this point in time, he denies any numbness, he seems to be ambulating better, using the walker, he he was seen earlier by Dr. Mccarthy, continue current treatment plan, continue pain management, continue with physical therapy, we will follow-up with the patient very closely. 08/17: Patient is doing a lot better today he is eating well, is urinating well, no issues with retention, no bowel movement yet, and lactulose 20 g orally twice every day, continue MiraLAX and Senokot, increase ambulation, pain is controlled well, likely will stay in the hospital for another 24 hours, continues to have the drain in place. 08/18: Patient is sitting up in the chair with the help of physical therapy, patient is not able to perform activities of daily living at home, his is not able to help because of her frozen shoulder, therefore Occupational Therapy will be consulted, social service technician consultation for subacute rehabilitation likely moderate on Sunday. Patient has his drain removed today, was seen earlier by spine surgery, incision appears to be clean and dry, dressed appropriately, no evidence of any erythema, no evidence of any drainage, patient denies any chest pain at this time, he has no shortness of breath, he has no abdominal pain, he did have a bowel movement yesterday, continue with MiraLAX, Senokot, continue also with lactulose 20 g orally twice every day, increase activity, family were at the bedside they were updated about his current condition. 08/19: Patient is lying down in bed he continues to have some pain in the lower back, he was seen earlier by occupational therapy as well as physical therapy, he will require to go to extended care facility because he cannot carry on acti vities of daily living, he has no chest pain, he appears to have some audible wheezes on and off, just minimal, we will start Lasix 20 mg IV push x 1, monitor the patient symptoms very closely. 08/20: Patient is sitting up in a chair eating his lunch, he is doing better, he continues to have some pain lower back, he is able to go to the bathroom, he has bowel movement, he was seen earlier by physical therapy and Occupational Therapy was recommended for the patient to be transferred to subacute rehabilitation, he will be transferred to [facility] later on today I will follow-up with the patient as an outpatient. REVIEW OF SYSTEMS: Constitutional: No documented fever, no chills, no night sweats. No weight change. No weakness, fatigue or lethargy. No daytime sleepiness. EENT: No headache. No blurred vision or double vision, no loss of vision. No loss of Hearing, no ringing in the ears, no dizziness. No nasal drainage or congestion. No epistaxis. No sore throat. Lungs: No shortness of breath, no cough, no sputum production. No wheezing. Reports dyspnea with activity. Cardiovascular: No chest pain, no lower extremity edema. No palpitations. No paroxysmal nocturnal dyspnea. No orthopnea. No lightheadedness or dizziness. No syncopal episodes. Abdominal: Reports abdominal pain. No nausea, vomiting. No diarrhea. No constipation. No bloody or tarry stools reports loss of appetite. Genitourinary: No dysuria, increased frequency, urgency. No urinary retention. Musculoskeletal: No myalgias. No muscle weakness, no gait dysfunction, no frequent falls. positive for back pain. No neck pain. Integumentary: wound is clean and drain in place no lesions. No rash or pruritus. No unusual bruising. No change in hair or nails. Neurologic: No aphasia. No facial droop. No change in mentation. No head injury. No headache. No paralysis. No paresthesia. Psychiatric: No depression. No anxiety. No mood swings. Endocrine: No abnormal blood sugars. No weight change. PHYSICAL EXAMINATION: General: 73-year-old male laying down in bed in minimal distress. HEENT: Head is atraumatic, normocephalic, pupils were equal round reactive to light and recommendation, extraocular muscle movement were intact, sclera nonicteric, conjunctivae were pale, mucous membranes of the mouth are somewhat dry. Neck: Supple, no JVP, normal carotid upstroke bilaterally, no lymphadenopathy. Chest: Decreased breath sounds at the bases, few rhonchi, no expiratory wheezes, no chest wall tenderness, no intercostal retractions. Heart: First heart sound is normal, second heart sounds normal there is systolic ejection murmur 2/6 located in the left sternal border. Abdomen: Soft, nontender, nondistended, positive bowel sounds. Extremities: There is no edema no calf tenderness DP +2 bilaterally. Neurologic examination: Patient is awake alert and oriented x3, cranial nerves II-12 appear grossly intact, muscle power were 5 out of 5 in upper extremities and 4 out of 5 in bilateral lower extremities, deep tendon reflexes normal bilaterally. ASSESSMENT AND PLAN: 1. Postoperative day #6 status post revision laminectomy of L2-L3 L3-L4 L4-L5 with medial facetectomy and foraminotomies. Continue current pain management as outlined by spine surgery, continue and encourage the use of incentive spirometer to reduce the incidence of atelectasis and healthcare associated pneumonia, early ambulation as indicated, physical therapy and Occupational Therapy evaluation likely for subacute rehabilitation started patient on heparin 5000 units subcutaneously every 8 hours. 2. Hypertension and hypertensive cardiovascular disease. Continue patient on losartan 25 mg orally once every day, continue metoprolol 50 mg orally twice every day, monitor the patient blood pressure very closely. 3. Mixed hyperlipidemia. Continue patient on atorvastatin 80 mg once every day, monitor the patient lipid panel, keep LDL 55-70. 4. History of coronary artery disease status post multiple PCI. Continue patient on metoprolol 50 mg orally twice a day as well as atorvastatin 80 mg once every day, continue aspirin 81 mg once a day, Plavix 75 mg once every day. 5. Enlarged prostate. Monitor for urinary retention. 6. Depression. Continue paroxetine 20 mg once every day. 7. Spondylolisthesis of the lumbar spine with radiculopathy postsurgical intervention continue current pain management. 8. DVT prophylaxis. Continue bilateral knee-high JESSI hose as well as bilateral SCDs. Early ambulation. Start the patient on heparin 5000 subcutaneously every8 hours. 9. GI prophylaxis. Continue patient on Protonix 40 mg once every day. 10. Constipation, continue the patient on MiraLAX 17 g in 8 ounce of water, continue Senokot 2 tablets at bedtime, continue lactulose 20 g orally twice every day. 11. Increase activity. 12. Protein calorie malnutrition increase oral intake of protein per 13. Physical therapy/Occupational Therapy along with social service technician consultation for discharge planning. Patient will likely require subacute rehabilitation 14. [facility] later on today, patient is medically stable for the transfer. Objective - Vital Signs Vital signs: Vital Signs Temp 97.8 F 08/20/23 14:03 Pulse 78 08/20/23 14:03 Resp 18 08/20/23 14:03 BP 120/70 08/20/23 14:03 Pulse Ox 98 08/20/23 14:03 FiO2 - Labs CBC & Chem 7: 08/20/23 05:32 08/20/23 05:32
== END 2023-08-20 15:57 | DRG 454 ==
LOC: OR 05:38 → 4SSUR 13:55 → OR 08-17 12:56 → 4SSUR 08-17 15:59
PROVIDERS: ADMIT Orthopaedic Surgery Orthopaedic Surgery of the Spine; ATTEND Orthopaedic Surgery Orthopaedic Surgery of the Spine
PROC: 0SG1071 Fusion of 2 or more Lumbar Vertebral Joints with Autologous Tissue Substitute, Posterior Approach, Posterior Column, Open Approach (ICD-10-PCS; 2023-08-15)
PROC: 0ST20ZZ Resection of Lumbar Vertebral Disc, Open Approach (ICD-10-PCS; 2023-08-15)
PROC: 01NB0ZZ Release Lumbar Nerve, Open Approach (ICD-10-PCS; 2023-08-15)
PROC: 07DS3ZZ Extraction of Vertebral Bone Marrow, Percutaneous Approach (ICD-10-PCS; 2023-08-15)
PROC: 0SG10AJ Fusion of 2 or more Lumbar Vertebral Joints with Interbody Fusion Device, Posterior Approach, Anterior Column, Open Approach (ICD-10-PCS; principal; 2023-08-15 07:30)
DX: M43.16 Spondylolisthesis, lumbar region (principal); E44.0 Moderate protein-calorie malnutrition; I11.9 Hypertensive heart disease without heart failure; F32.A Depression, unspecified; Z68.34 Body mass index [BMI] 34.0-34.9, adult; M48.061 Spinal stenosis, lumbar region without neurogenic claudication; M51.16 Intervertebral disc disorders with radiculopathy, lumbar region; I25.10 Atherosclerotic heart disease of native coronary artery without angina pectoris; E78.2 Mixed hyperlipidemia; N40.0 Benign prostatic hyperplasia without lower urinary tract symptoms; K59.00 Constipation, unspecified; G89.29 Other chronic pain; M25.78 Osteophyte, vertebrae; Z74.2 Need for assistance at home and no other household member able to render care; Z96.642 Presence of left artificial hip joint; Z98.890 Other specified postprocedural states; Z79.899 Other long term (current) drug therapy; I25.2 Old myocardial infarction; Z87.891 Personal history of nicotine dependence; Z79.82 Long term (current) use of aspirin; Z79.02 Long term (current) use of antithrombotics/antiplatelets; Z95.5 Presence of coronary angioplasty implant and graft; Z87.828 Personal history of other (healed) physical injury and trauma; Z86.16 Personal history of COVID-19; Z28.310 Unvaccinated for COVID-19
CPT/HCPCS: 72100; 80048; 80053; 85025

== ENCOUNTER 2024-02-12 10:30 | Day surgery (SDC) | payer MEDICARE, BC ==
[~2024-02-12 10:30] MED LIST changes: +LACTATED RINGERS 1,000 ML BAG ONE; -ceFAZolin 1,000 MG in SODIUM CHLORIDE 0.9% IRRIGATIO 1,000 ML IRRIGATION PRN
--- NOTE | 2024-02-22 15:53 | OP ---
OPERATIVE REPORT DATE OF SERVICE : 02/12/2024 REQUESTING PHYSICIAN: Dr. Ramírez Beal. INDICATION: The patient is a 73-year-old pleasant white male scheduled to undergo colonoscopy as a part of screening for colonic neoplasia. PROCEDURE PERFORMED: Colonoscopy with biopsy. PREOPERATIVE DIAGNOSIS: Screening for colon cancer. ANESTHESIA: IV sedation per anesthesia. PROCEDURE IN DETAIL: After informed consent was obtained from the patient, he was brought into the endoscopy unit. IV conscious sedation was administered by Anesthesia under continuous monitoring. Initial digital rectal examination was normal. Olympus CF-190 video colonoscopy was introduced through the rectum, gradually advanced into the cecum. Careful examination was performed, and scope was gradually being withdrawn. Ileocecal valve and appendiceal office were visualized and appeared normal. Prep was excellent. In the base of the cecum, there was a 3-mm polyp that was removed by cold biopsy. Ascending colon appeared normal. In the transverse colon, there was a 5-mm polyp that was removed by cold biopsy. Descending colon, sigmoid colon, and rectum appeared normal. In the rectum, retroflexion was performed. Small internal hemorrhoids were seen. The patient tolerated the procedure well. IMPRESSION: 1. 3 mm cecal polyp, status post cold biopsy. 2. 5 mm transverse colon polyp, status post removal by cold biopsy. 3. Small internal hemorrhoids. RECOMMENDATIONS: Findings of this examination were discussed with the patient as well as the family. He was advised to follow up with the biopsy results. If the biopsy reveals adenoma, he can have a repeat colonoscopy in 5 years. MMODL / IJN: [id number] /
== END 2024-02-12 11:00 ==
LOC: ORWHC2ENDO 10:30
PROVIDERS: ATTEND Internal Medicine Gastroenterology
DX: Z12.11 Encounter for screening for malignant neoplasm of colon (principal); K63.5 Polyp of colon; K64.8 Other hemorrhoids
CPT/HCPCS: 45380

== ENCOUNTER → 2024-03-10 | Outpatient (CLI) | payer MEDICARE, BC ==
--- NOTE | 2024-03-11 13:16 | MR ---
EXAMINATION TYPE: MR orbits wo/w con DATE OF EXAM: 03/10/2024 COMPARISON: HISTORY: Left orbit lateral side fatty tumor CONTRAST: Standard multiplanar, multisequence MRI departmental protocol images were obtained without contrast a nd with 10 mL intravenous Gadavist gadolinium contrast. FINDINGS: There is lipomatous prominence are noted adjacent to the left globe laterally measuring 14 x 5 mm wit hout enhancement. This likely reflects a lipoma. No additional lesions are seen. Globes are slightly otherwise symmetric. Optic nerves are symmetric and unremarkable. Extraocular musculature does not ap pear to be thickened. No evidence for exophthalmos. Bifrontal remote insult seen. Paranasal sinuses are well-aerated. 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
== END | disposition home or self-care (01) ==
LOC: RADMRIMAIN 13:37
PROVIDERS: ATTEND Ophthalmology Ophthalmic Plastic and Reconstructive Surgery
DX: D48.7 Neoplasm of uncertain behavior of other specified sites (principal)
CPT/HCPCS: 70543

== ENCOUNTER 2024-05-24 17:04 | Emergency (ER) | payer MEDICARE, BC ==
--- NOTE | 2024-05-24 18:07 | ED ---
Male Urogenital HPI - General Chief complaint: Urogenital Stated complaint: abd pain Time Seen by Provider: 05/24/24 18:05 Source: patient, family (), RN notes reviewed Mode of arrival: ambulatory Limitations: no limitations - History of Present Illness Initial comments: 74-year-old male presented to the ER with a chief complaint of left flank pain. Patient states this morning he started to endorse a sharp 10 out of 10 left flank pain. Pain does not radiate. Patient also reports he feels like his urine is "acid". States that the head of his penis appears irritated and red. He is concerned he may have a kidney stone. He denies a history of kidney stones. He has tried [id number] Tylenol arthritis without relief. He does report 1 episode of "queasiness". But denies any vomiting, fevers, chills, constipation/diarrhea or peripheral edema. Patient does report a history of lumbar fusion in August of this year with Dr. Guajardo. He denies any saddle paresthesias, bowel or bladder incontinence or fevers. Patient has no other com plaints at this time. - Related Data Home Medications Medication Instructions Recorded Confirmed Aspirin EC [Ecotrin Low Dose] 81 mg PO QAM 07/29/18 08/15/23 Atorvastatin [Lipitor] 80 mg PO HS 07/29/18 08/15/23 Fenofibrate [Lofibra] 160 mg PO DAILY 07/29/18 08/15/23 PARoxetine [Paxil] 20 mg PO QAM 07/29/18 08/15/23 Cyanocobalamin (Vitamin B-12) 1,000 mcg PO DAILY 08/02/18 08/15/23 [Vitamin B-12] Nitroglycerin 0.4 mg SL DIRECTED PRN 08/02/18 08/15/23 Metoprolol Tartrate [Lopressor] 50 mg PO BID 07/17/20 08/15/23 Ascorbic Acid [Vitamin C] 1,000 mg PO DAILY 10/07/22 08/15/23 Zinc Gluconate [Zinc] 50 mg PO BID 10/07/22 08/15/23 Cholecalciferol (Vitamin D3) 125 mcg PO DAILY 05/02/23 08/15/23 [Vitamin D3 (1250 Mcg = 50,000 Iu)] Loratadine-Pseudoeph 10-240 mg 1 tab PO HS 05/02/23 08/15/23 [Claritin-D 24 Hour] tiZANidine [Zanaflex] 2 mg PO BID 05/02/23 08/15/23 Fish Oil/Dha/Epa [Fish Oil 1,200 1 each PO BID 08/08/23 08/15/23 mg Fish Oil] Losartan [Cozaar] 25 mg PO QAM 08/08/23 08/15/23 Previous Rx's Medication Instructions Recorded Clopidogrel [Plavix] 75 mg PO DAILY #0 05/03/23 Baclofen 10 mg PO TID PRN #60 tab 08/20/23 HYDROcodone/APAP 7.5-325MG [[place] 1 each PO Q6HR PRN #28 tab 08/20/23 7.5-325] Lactulose [Cephulac] 20 gm PO BID #1800 ml 08/20/23 Sennosides-Docusate Sodium 1 tab PO BID PRN #60 tablet 08/20/23 [Senokot-S] polyethylene glycoL 3350 [Miralax] 17 gm PO DAILY #30 packet 08/20/23 Clotrimazole Cream [Lotrimin Cream] 1 applic TOPICAL BID #15 gm 05/24/24 Cyclobenzaprine [Flexeril] 10 mg PO TID PRN #15 tab 05/24/24 Lidocaine 4% Patch 1 patch TOPICAL DAILY #30 patch 05/24/24 Allergies Allergy/AdvReac Type Severity Reaction Status Date / Time No Known Allergies Allergy Verified 05/24/24 17:32 Review of Systems ROS Statement: Those systems with pertinent positive or pertinent negative responses have been documented in the HPI. ROS Other: All systems not noted in ROS Statement are negative. 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 cath with 2 stents Past Anesthesia/Blood Transfusion Reactions: No Reported Reaction Additional Past Anesthesia/Blood Transfusion Reaction / Comment(s): no hx blood transfusion Date of Last Stent Placement:: 2016 Past Psychological History: Anxiety Smoking Status: Former smoker Past Alcohol Use History: Rare Past Drug Use History: None Reported - Past Family History Mother Family Medical History: Coronary Artery Disease (CAD) Additional Family Medical History / Comment(s): stents, cabg Father Family Medical History: Coronary Artery Disease (CAD), Vascular Disorder Additional Family Medical History / Comment(s): cabg General Exam Limitations: no limitations General appearance: alert, in no apparent distress Respiratory exam: Present: normal lung sounds bilaterally. Absent: respiratory distress, wheezes, rales, rhonchi, stridor Cardiovascular Exam: Present: regular rate, normal rhythm, normal heart sounds. Absent: systolic murmur, diastolic murmur, rubs, gallop, clicks GI/Abdominal exam: Present: soft, tenderness (Lower abdomen), normal bowel sounds exam: Present: circumcision (erythematous glans of penis. no penile discharge) Back exam: Present: other (No CVA tenderness bilaterally. Healed midline surgical incision.) Neurological exam: Present: alert, oriented X3, CN II-XII intact Skin exam: Present: warm, dry, intact, normal color. Absent: rash Course Vital Signs 05/24/24 05/24/24 17:32 20:30 Temperature 97.3 F L 97.8 F Pulse Rate 55 L 60 Respiratory 18 16 Rate Blood Pressure 174/77 185/91 O2 Sat by Pulse 96 98 Oximetry Medical Decision Making - Medical Decision Making Was pt. sent in by a medical professional or institution (, PA, UX LEAD, urgent care, hospital, or alf...) When possible be specific @ -No Did you speak to anyone other than the patient for history (EMS, parent, family, police, friend...)? What history was obtained from this source @ - aiding in HPI and past medical history. Did you review nursing and triage notes (agree or disagree)? Why? @ -I reviewed and agree with nursing and triage notes Were old charts reviewed (outside hosp., previous admission, EMS record, old EKG, old radiological studies, urgent care reports/EKG's, alf records)? Report findings @ -No old charts were reviewed Differential Diagnosis (chest pain, altered mental status, abdominal pain women, abdominal pain men, vaginal bleeding, weakness, fever, dyspnea, syncope, headache, dizziness, GI bleed, back pain, seizure, CVA, palpatations, mental health, musculoskeletal)? @ -Differential Back Pain: Strain, zoster, cauda equina syndrome, epidural abscess, vertebral osteomyelitis, discitis, fracture, subluxation, disc herniation, DJD, spinal stenosis, dissection, AAA, pancreatitis, peptic ulcer disease, pyelonephritis, kidney stone, this is not meant to be an all-inclusive list. EKG interpreted by me (3pts min.). @ -None done X-rays interpreted by me (1pt min.). @ -None done CT interpreted by me (1pt min.). @ -CT abdomen pelvis negative for acute intraabdominal process. U/S interpreted by me (1pt. min.). @ -None done What testing was considered but not performed or refused? (CT, X-rays, U/S, labs)? Why? @ -None What meds were considered but not given or refused? Why? @ -None Did you discuss the management of the patient with other professionals (professionals i.e. , PA, [employer] LEAD, lab, RT, psych nurse, social worker clinical, generation technician, teacher, public health service officer, case management social worker)? Give summary @ -No Was smoking cessation discussed for >3mins.? @ -No Was critical care preformed (if so, how long)? @ -No Were there social determinants of health that impacted care today? How? (Homelessness, low income, unemployed, alcoholism, drug addiction, transportation, low edu. Level, literacy, decrease access to med. care, nursing home, rehab)? @ -No Was there de-escalation of care discussed even if they declined (Discuss DNR or withdrawal of care, Hospice)? DNR status @ -No What co-morbidities impacted this encounter? (DM, HTN, Smoking, COPD, CAD, Cancer, CVA, ARF, Chemo, Hep., AIDS, mental health diagnosis, sleep apnea, morbid obesity)? @ -Diabetes mellitus/recent lumbar spine surgery Was patient admitted / discharged? Hospital course, mention meds given and route, prescriptions, significant lab abnormalities, going to OR and other pe rtinent info. @ -Discharged. 74-year-old male presented to ER with a chief complaint of left flank pain. History and physical exam completed. Vital stable. Patient in no signs of acute distress. No red flag back pain symptoms intact cauda equina syndrome. Tenderness to left paraspinal muscles. No CVA tenderness. No overlying skin changes. No abdominal pain. As patient reporting penile irritation examination performed. Exam remarkable for erythematous glans of penis. No penile discharge. Laboratory studies obtained remarkable for a leukocytosis of 11.7 with a left shift. CMP unremarkable. Urinalysis with 4+ glucose which is likely related to patient's Farxiga use. CT abdomen pelvis negative. Symptomatic control in the ER with IV fluids, Toradol and lidocaine patch. Back pain believed to be musculoskeletal in nature patient will be started on Flexeril and lidocaine patches. Patient also started on clotrimazole for balantitis. Advise close follow-up with Dr. Guajardo is symptoms persist. Strict return parameters discussed. Patient discharged in stable condition with follow-up to PCP. Patient verbally expressed understanding and agreement with care plan. Case discussed with ED attending, Dr. Pierce. Undiagnosed new problem with uncertain prognosis? @ -No Drug Therapy requiring intensive monitoring for toxicity (Heparin, Nitro, Insulin, Cardizem)? @ -No Were any procedures done? @ -No Diagnosis/symptom? @ -Back pain/balanitis Acute, or Chronic, or Acute on Chronic? @ -Acute Uncomplicated (without systemic symptoms) or Complicated (systemic symptoms)? @ -Uncomplicated Side effects of treatment? @ -No Exacerbation, Progression, or Severe Exacerbation? @ -No Poses a threat to life or bodily function? How? (Chest pain, [place], VA, pneumonia, PE, COPD, DKA, ARF, appy, cholecystitis, CVA, Diverticulitis, Homicidal, Suicidal, threat to staff... and all critical care pts) @ -No - Lab Data Result diagrams: 05/24/24 18:18 05/24/24 18:18 Lab Results 05/24/24 05/24/24 05/24/24 Range/Units 18:18 18:18 18:18 WBC 11.7 H (3.8-10.6) k/uL RBC 4.75 (4.30-5.90) m/uL Hgb 15.1 (13.0-17.5) gm/dL Hct 44.8 (39.0-53.0) % MCV 94.4 (80.0-100.0) fL MCH 31.8 (25.0-35.0) pg MCHC 33.7 (31.0-37.0) g/dL RDW 13.9 (11.5-15.5) % Plt Count 232 (150-450) k/uL MPV 6.8 Neutrophils % 71 % Lymphocytes % 15 % Monocytes % 7 % Eosinophils % 5 % Basophils % 1 % Neutrophils # 8.3 H (1.3-7.7) k/uL Lymphocytes # 1.8 (1.0-4.8) k/uL Monocytes # 0.8 (0-1.0) k/uL Eosinophils # 0.6 (0-0.7) k/uL Basophils # 0.1 (0-0.2) k/uL Sodium 139 (137-145) mmol/L Potassium 4.4 (3.5-5.1) mmol/L Chloride 102 (98-107) mmol/L Carbon Dioxide 32 H (22-30) mmol/L Anion Gap 5 mmol/L BUN 17 (9-20) mg/dL Creatinine 1.23 (0.66-1.25) mg/dL Est GFR (CKD-EPI)AfAm 67 (>60 ml/min/1.73 sqM) Est GFR (CKD-EPI)NonAf 58 (>60 ml/min/1.73 sqM) Glucose 143 H (74-99) mg/dL Plasma Lactic Acid Gino 1.5 (0.7-2.0) mmol/L Calcium 9.5 (8.4-10.2) mg/dL Total Bilirubin 0.7 (0.2-1.3) mg/dL AST 27 (17-59) U/L ALT 23 (4-49) U/L Alkaline Phosphatase 65 (38-126) U/L Total Protein 6.6 (6.3-8.2) g/dL Albumin 4.1 (3.5-5.0) g/dL Urine Color Urine Appearance (Clear) Urine pH (5.0-8.0) Ur Specific [place] (1.001-1.035) Urine Protein (Negative) Urine Glucose (UA) (Negative) Urine Ketones (Negative) Urine Blood (Negative) Urine Nitrite (Negative) Urine Bilirubin (Negative) Urine Urobilinogen (<2.0) mg/dL Ur Leukocyte Esterase (Negative) 05/24/24 Range/Units 18:39 WBC (3.8-10.6) k/uL RBC (4.30-5.90) m/uL Hgb (13.0-17.5) gm/dL Hct (39.0-53.0) % MCV (80.0-100.0) fL MCH (25.0-35.0) pg MCHC (31.0-37.0) g/dL RDW (11.5-15.5) % Plt Count (150-450) k/uL MPV Neutrophils % % Lymphocytes % % Monocytes % % Eosinophils % % Basophils % % Neutrophils # (1.3-7.7) k/uL Lymphocytes # (1.0-4.8) k/uL Monocytes # (0-1.0) k/uL Eosinophils # (0-0.7) k/uL Basophils # (0-0.2) k/uL Sodium (137-145) mmol/L Potassium (3.5-5.1) mmol/L Chloride (98-107) mmol/L Carbon Dioxide (22-30) mmol/L Anion Gap mmol/L BUN (9-20) mg/dL Creatinine (0.66-1.25) mg/dL Est GFR (CKD-EPI)AfAm (>60 ml/min/1.73 sqM) Est GFR (CKD-EPI)NonAf (>60 ml/min/1.73 sqM) Glucose (74-99) mg/dL Plasma Lactic Acid [place] (0.7-2.0) mmol/L Calcium (8.4-10.2) mg/dL Total Bilirubin (0.2-1.3) mg/dL AST (17-59) U/L ALT (4-49) U/L Alkaline Phosphatase (38-126) U/L Total Protein (6.3-8.2) g/dL Albumin (3.5-5.0) g/dL Urine Color Light Yellow Urine Appearance Clear (Clear) Urine pH 5.0 (5.0-8.0) Ur Specific [place] 1.035 (1.001-1.035) Urine Protein Negative (Negative) Urine Glucose (UA) 4+ H (Negative) Urine Ketones Negative (Negative) Urine Blood Negative (Negative) Urine Nitrite Negative (Negative) Urine Bilirubin Negative (Negative) Urine Urobilinogen <2.0 (<2.0) mg/dL Ur Leukocyte Esterase Negative (Negative) - Radiology Data Radiology results: report reviewed, image reviewed Disposition Clinical Impression: Flank pain, Balanitis Disposition: HOME SELF-CARE Condition: Stable Instructions (If sedation given, give patient instructions): Balanitis (ED), Flank Pain (ED) Additional Instructions: Follow-up with PCP. Follow-up with Dr. Guajardo if symptoms persist. Return to the ER for any new or worsening concerns. Prescriptions: Cyclobenzaprine [Flexeril] 10 mg PO TID PRN #15 tab PRN Reason: Muscle Spasm Lidocaine 4% Patch 1 patch TOPICAL DAILY #30 patch Clotrimazole Cream [Lotrimin Cream] 1 applic TOPICAL BID #15 gm Is patient prescribed a controlled substance at d/c from ED?: No Referrals: Ramírez Beal MD [Primary Care Provider] - 1-2 days Daniel Guajardo DO [Doctor of Osteopathic Medicine] - 1-2 days Time of Disposition: 20:28
[2024-05-24] MEDS: SODIUM CHLORIDE 0.9% 1,000 ML IV STA (18:28)
[2024-05-24] MEDS: KETOROLAC 15 MG/ML 1 ML VIAL IVP STA (18:32)
[2024-05-24 18:55] LABS: Basophils # (A) 0.1 k/uL (0-0.2); Basophils % (A) 1 %; Eosinophils # (A) 0.6 k/uL (0-0.7); Eosinophils % (A) 5 %; HCT 44.8 % (39.0-53.0); HGB 15.1 gm/dL (13.0-17.5); Lymphocytes # (A) 1.8 k/uL (1.0-4.8); Lymphocytes % (A) 15 %; MCH 31.8 pg (25.0-35.0); MCHC 33.7 g/dL (31.0-37.0); MCV 94.4 fL (80.0-100.0); Mean Platelet Volume 6.8; Monocytes # (A) 0.8 k/uL (0-1.0); Monocytes % (A) 7 %; Neutrophils # (A) 8.3 k/uL (1.3-7.7); Neutrophils % (A) 71 %; Platelet Count 232 k/uL (150-450); RBC 4.75 m/uL (4.30-5.90); RDW 13.9 % (11.5-15.5); WBC 11.7 k/uL (3.8-10.6)
[2024-05-24 18:58] LABS: Appearance,Urine Clear (Clear); Bilirubin,Urine Negative (Negative); Blood,Urine Negative (Negative); Color,Urine Light Yellow; Glucose,Urine (UA) 4+ (Negative); Ketones,Urine Negative (Negative); Leukocyte Esterase,Urine Negative (Negative); Nitrite,Urine Negative (Negative); Protein,Urine Negative (Negative); Specific Gravity,Urine 1.035 (1.001-1.035); Urobilinogen,Urine <2.0 mg/dL (<2.0)
[2024-05-24 19:17] LABS: ALT 23 U/L (4-49); AST 27 U/L (17-59); African American GFR (CKD) 67 (>60 ml/min/1.73 sqM); Albumin 4.1 g/dL (3.5-5.0); Alkaline Phosphatase 65 U/L (38-126); Anion Gap 5 mmol/L; Blood Urea Nitrogen 17 mg/dL (9-20); Calcium 9.5 mg/dL (8.4-10.2); Carbon Dioxide 32 mmol/L (22-30); Chloride 102 mmol/L (98-107); Glucose 143 mg/dL (74-99); Non-African American GFR(CKD) 58 (>60 ml/min/1.73 sqM); Potassium 4.4 mmol/L (3.5-5.1); Sodium 139 mmol/L (137-145); Total Bilirubin 0.7 mg/dL (0.2-1.3); Total Protein 6.6 g/dL (6.3-8.2)
--- NOTE | 2024-05-24 20:16 | CT ---
EXAMINATION TYPE: CT abdomen pelvis w con DATE OF EXAM: 05/24/2024 8:06 PM COMPARISON: None available. CLINICAL INDICATION: Male, 74 years old with history of flank pain/recent lumbar fusion; Left side fl ank pain. Recent lumbar fusion. TECHNIQUE: Axial CT abdomen pelvis w con;Sagittal and coronal reformats were created on a separate w orkstation. Contrast used:80 ml mL of Isovue 300 with IV Contrast, (none if empty) Oral contrast used: without Oral Contrast (none if empty) CT DLP: 1.6 mGycm, Automated exposure control for dose reduction was used. FINDINGS: LOWER CHEST: Unremarkable ABDOMEN LIVER: Unremarkable GALLBLADDER AND BILE DUCTS: The gallbladder is surgically absent. PANCREAS: Unremarkable. SPLEEN: Unremarkable. ADRENAL GLANDS: Unremarkable. KIDNEYS AND URETERS: No evidence of hydronephrosis or renal calculus. The ureters are unremarkable. PELVIS BLADDER: No evidence for wall thickening or mass given limitations of exam. REPRODUCTIVE: Unremarkable. ABDOMEN & PELVIS STOMACH AND BOWEL: Stomach and duodenum are unremarkable Appendix surgically absent. No evidence of b owel obstruction. Colonic diverticulosis without acute diverticulitis. PERITONEUM/RETROPERITONEUM: No evidence of pneumoperitoneum or free fluid. VASCULATURE: No evidence of aortic aneurysm. MUSCULOSKELETAL: No acute osseous abnormalities. Posterior lumbosacral spinal fusion hardware spannin g L2-L5 with multilevel intervertebral disc spacer device is noted. There is edema and fluid in the p osterior paraspinal subcutaneous tissues related to recent surgery. Left hip arthroplasty. LYMPH NODES: No gross evidence for lymphadenopathy. SOFT TISSUE/ABDOMINAL WALL: Unremarkable IMPRESSION: No acute abnormality in the abdomen/pelvis. [facility], , 05/24/2024 8:13 PM
[2024-05-24 20:37] VITALS: BP 185/91; PULSE 60; RESP 16; TEMP 97.8
[2024-05-24] MEDS: LIDOCAINE 4% PATCH TOPICAL ONE (20:38)
[2024-05-24] MEDS: CYCLOBENZAPRINE 10MG STARTER 3 TAB BTL PO STA (20:38)
== END 2024-05-24 20:47 | disposition home or self-care (01) ==
LOC: EC 17:04
DX: N48.1 Balanitis (principal); E11.9 Type 2 diabetes mellitus without complications; Z87.891 Personal history of nicotine dependence; Z90.49 Acquired absence of other specified parts of digestive tract; Z79.899 Other long term (current) drug therapy
CPT/HCPCS: 36415; 80053; 83605; 85025; 81003; 74177; 99284; 96374; 96361; J1885; Q9967

== ENCOUNTER → 2024-05-26 | Outpatient (CLI) | payer MEDICARE, BC ==
--- NOTE | 2024-05-26 15:24 | XR ---
KUB. HISTORY: Abdominal pain. COMPARISON: None. TECHNIQUE: 2 supine views of the abdomen were obtained. FINDINGS: The bowel gas pattern is nonspecific and there is no evidence of obstruction. There is a mild to mode rate amount of stool within the colon. There is a 6.6 mm calcification patient overlying the right sacrum which could lie within the right u reter. Bowel gas obscures possible calcification in the kidneys. There are postsurgical changes of laminectomy and fusion within the mid and lower lumbar spine. There is a left hip prosthesis. IMPRESSION: Possible 6.6 mm calcification in the distal right ureter. Nonspecific bowel gas pattern with moderate stool within the colon [facility], , 05/26/2024 3:22 PM
== END | disposition home or self-care (01) ==
LOC: RADXRMAIN 14:42
PROVIDERS: ATTEND Internal Medicine
DX: R31.9 Hematuria, unspecified (principal); Z96.642 Presence of left artificial hip joint
CPT/HCPCS: 74018